=== PATIENT | male | born 1975 | race Caucasian/White ===

== ENCOUNTER → 2017-02-12 | Outpatient (CLI) | payer BC ==
--- NOTE | 2017-02-12 08:56 | CT ---
EXAMINATION TYPE: CT abdomen wo/w con DATE OF EXAM: 02/12/2017 COMPARISON: None available at this institution HISTORY: RUQ pain, Abn US in office, liver hemangioma and spleen hemangioma CT DLP: 3283 mGycm Automated exposure control for dose reduction was used. TECHNIQUE: Helical acquisition of images was performed from the lung bases through the top of iliac crest to include entire abdomen. CONTRAST: Performed with Oral Contrast and without and with IV Contrast, patient injected with 100 mL of Omnipa que 300. FINDINGS: LUNG BASES: No significant abnormality is appreciated. LIVER/GB: The liver is diffusely hypoattenuated approaching criteria for hepatic steatosis. This find ing does limit evaluation for hepatic masses. No intrahepatic biliary ductal dilatation is seen. The liver contour is smooth. No focal hepatic masses are appreciated. No abnormal enhancement is seen of the hepatic parenchyma. No radiopaque calculi on the unenhanced images. PANCREAS: No significant abnormality is seen. No ductal dilatation. SPLEEN: The spleen is unremarkable in size and morphology measuring approximately 10.3 cm in cranioca udal dimension and 13.0 cm in longitudinal dimension. No splenic masses are appreciated. No abnormal splenic enhancement is seen. No splenic varices are present. ADRENALS: Adrenal glands maintain are normal adreniform shape without measurable nodule. KIDNEYS: No radiopaque calculi on the unenhanced images. The kidneys enhance and excrete symmetricall y with no focal mass on the left or hydronephrosis. Cortical renal cyst is seen within the superior p ole posteriorly on the right measuring approximately 1.2 cm. BOWEL: Bowel is unenlarged. Appendix is visualized without periappendiceal fat stranding. LYMPH NODES: No enlarged lymph nodes greater than 1 cm present. OSSEOUS STRUCTURES: Vertebral body hemangioma seen of the lower thoracic vertebrae. No evidence of a cute fracture or dislocation. No suspicious osseous lesion. FREE AIR: No free air is visualized. OTHER: A small fat filled 7 mm umbilical hernia is present. IMPRESSION: NO EVIDENCE OF FOCAL HEPATIC OR SPLENIC LESION. THE LIVER APPROACHES CRITERIA FOR HEPATIC STEATOSIS A ND MAY HAVE CREATED A COARSENED HEPATIC ECHOTEXTURE ON THE PREVIOUS OUTSIDE ULTRASOUND MIMICKING A FO ZOEY LESION.
== END ==
LOC: RADCTMAIN 07:42
PROVIDERS: ATTEND Family Medicine
DX: D18.00 Hemangioma unspecified site (principal); D18.03 Hemangioma of intra-abdominal structures
CPT/HCPCS: 74170; Q9967

== ENCOUNTER 2017-03-20 07:56 | Day surgery (SDC) | payer BC ==
[2017-03-15 16:12] VITALS: BMI 44.9
[~2017-03-20 07:56] MED LIST: LACTATED RINGERS 1,000 ML IV SCH
[2017-03-20] MEDS ORDERED: LIDOCAINE 1% 20 ML VIAL (10MG/ML) FOR IV START INTRADERMA ONE (08:21)
[2017-03-20 08:23] VITALS: RESP 16; TEMP 9
[2017-03-20] MEDS ORDERED: LIDOCAINE 1% INJ 10MG/ML (20 ML MDV) ONE (09:05)
[2017-03-20] MEDS ORDERED: PROPOFOL 10 MG/ML 20 ML VIAL IV ONE (09:05)
--- NOTE | 2017-03-20 09:10 | P.GSHP ---
History of Present Illness H&P Date: 03/20/17 Chief Complaint: Epigastric pain, GERD This a 41-year-old male referred from Dr. Israel Joel. Patient presents today for EGD. He's had issues with some epigastric and left upper quadrant pain as well as some mild GERD. Past Medical History Past Medical History: No Reported History Additional Past Medical History / Comment(s): States having this procedure for abdominal pain. History of Any Multi-Drug Resistant Organisms: None Reported Additional Past Surgical History / Comment(s): Ear tubes as a child, pain injections. Past Anesthesia/Blood Transfusion Reactions: No Reported Reaction Additional Past Anesthesia/Blood Transfusion Reaction / Comment(s): Has never had general anesthesia. Smoking Status: Never smoker - Past Family History Mother Family Medical History: No Reported History Medications and Allergies Home Medications Medication Instructions Recorded Confirmed Type No Known Home Medications [No 03/15/17 03/20/17 History Known Home Medications] Allergies Allergy/AdvReac Type Severity Reaction Status Date / Time No Known Allergies Allergy Verified 03/20/17 08:11 Surgical - Exam Vital Signs Temp Pulse Resp BP Pulse Ox 9 F L 66 16 125/73 97 03/20/17 08:22 03/20/17 08:22 03/20/17 08:22 03/20/17 08:22 03/20/17 08:22 - General well developed, no distress - Eyes PERRL - ENT normal pinna - Neck no masses - Respiratory normal expansion - Cardiovascular Rhythm: regular - Abdomen Abdomen: soft, non tender Assessment and Plan Assessment: Epigastric pain, GERD. We'll perform EGD.
--- NOTE | 2017-03-20 09:18 | P.OP ---
Date of Procedure: 03/20/17 Preoperative Diagnosis: Epigastric pain Postoperative Diagnosis: Mild antral gastritis Small hiatal hernia Mild esophagitis Procedure(s) Performed: EGD Anesthesia: MAC Surgeon: Rajesh Mayers Pathology: other (Antrum, esophagus) Condition: stable Disposition: PACU Description of Procedure: The patient's placed on the endoscopy table in the lateral position. He received IV sedation. The gastroscope placed oropharynx passed in the esophagus and stomach. Scope was then placed through the pylorus. The first and second portion of the duodenum appeared normal. Scope was then brought back the antrum and this appeared mildly inflamed. A biopsies was performed. Scope was unretroflexed and remainder stomach appeared normal. There was a small hiatal hernia. The GE junction was at 38 7 is. The distal esophagus appeared mildly inflamed a biopsies performed. The proximal esophagus appeared normal. Scope was withdrawn for patient.
[2017-03-20 09:33] VITALS: BP 123/84; PULSE 72
== END 2017-03-20 10:04 | disposition home or self-care (01) ==
LOC: ORWHC2ENDO 07:56
PROVIDERS: ATTEND Surgery
DX: K21.0 Gastro-esophageal reflux disease with esophagitis (principal); K29.50 Unspecified chronic gastritis without bleeding; K44.9 Diaphragmatic hernia without obstruction or gangrene; E66.9 Obesity, unspecified; Z68.41 Body mass index [BMI] 40.0-44.9, adult
CPT/HCPCS: 43239; 88305; 88342; J2001; J2704

== ENCOUNTER → 2017-05-07 | Outpatient (CLI) | payer BC ==
--- NOTE | 2017-05-07 17:08 | P.HPBAR ---
Bariatric H&P - History & Physicial H&P Date: 05/07/17 History & Physicial: Visit/CC: Patient initial contact: Initial weight: Initial weight in pounds: Height: Initial BMI: Last weight: Current weight: 366 Current weight in pounds: Current BMI: [place] body weight (based on NIH guidelines): Excess body weight loss: The patient is a 41 year-old M who presents for Bariatric Assessment. The patient presents today for new patient sleeve gastric mucosal patient. Patient' s had lifetime problems obesity. He is also severe comorbidities related to morbid obesity. Patient is attended a recent. Summer. He has a good understanding of the sleeve gastrectomy. Past Medical History Past Medical History: No Reported History Additional Past Medical History / Comment(s): chronic esophagitis dx 03/20/17 by EGD (Dr. Reddy), states he has herniated discs between L1 and S1 (one of which is near deterioration) History of Any Multi-Drug Resistant Organisms: None Reported Additional Past Surgical History / Comment(s): Ear tubes as a child, pain injections lower back . Past Anesthesia/Blood Transfusion Reactions: No Reported Reaction Additional Past Anesthesia/Blood Transfusion Reaction / Comm: Has never had general anesthesia, no problems noted with [place] anesthesia for EGD on Past Psychological History: No Psychological Hx Reported Smoking Status: Never smoker Past Alcohol Use History: Occasional Past Drug Use History: Marijuana Additional Drug Use History / Comment(s): occasional marijuana for back pain - Past Family History Mother Family Medical History: Diabetes Mellitus Additional Family Medical History / Comment(s): DDD, Anusha en Y sx, open heart sx , heart valve replacement, DM, Multiple back sx, lung disorder originated from [place] and led to mold spores in lungs, smoker Father Family Medical History: No Reported History Additional Family Medical History / Comment(s): patient states father does not go to the doctor, has bad knees but that's about it. Surgical - Exam - General well developed, no distress - Eyes PERRL - ENT normal pinna - Neck no masses - Respiratory normal expansion - Cardiovascular Rhythm: regular - Abdomen Abdomen: soft, non tender Bariatric Assessment & Plan Plan: Morbid obesity with severe comorbidities.. Patient will be authorized for sleeve gastrectomy prior to scheduling. He'll follow-up in 2 months. Bariatric Checklist Checklist: Plan: Checklist: EGD: 1. Hiatal hernia: 2. H. Pylori: HgbA1c: Vitamin D: Smoking: Never smoker Primary care physician referral: Psychiatry clearance: Cardiology clearance: Sleep study: Diet journal: VTE risk score: VTE risk level: Rehab needs at discharge:
[2017-05-07 19:50] VITALS: BP 141/80; PULSE 75; RESP 15; TEMP 98; BMI 47.7
== END | disposition home or self-care (01) ==
LOC: BARWHC3 14:39
PROVIDERS: ATTEND Surgery
DX: E66.01 Morbid (severe) obesity due to excess calories (principal); E44.0 Moderate protein-calorie malnutrition; E55.9 Vitamin D deficiency, unspecified
CPT/HCPCS: 99211

== ENCOUNTER → 2017-07-21 | Outpatient (CLI) | payer BC ==
[2017-07-21 08:45] LABS: ALT 33 U/L (21-72); AST 32 U/L (17-59); Albumin 4.2 g/dL (3.5-5.0); Alkaline Phosphatase 85 U/L (38-126); Anion Gap 12 mmol/L; Blood Urea Nitrogen 14 mg/dL (9-20); Calcium 9.3 mg/dL (8.4-10.2); Carbon Dioxide 26 mmol/L (22-30); Chloride 105 mmol/L (98-107); Glucose 93 mg/dL (74-99); Potassium 4.4 mmol/L (3.5-5.1); Sodium 143 mmol/L (137-145); Total Bilirubin 0.5 mg/dL (0.2-1.3); Total Protein 7.3 g/dL (6.3-8.2)
[2017-07-21 08:49] LABS: HCT 44.7 % (39.0-53.0); HGB 14.4 gm/dL (13.0-17.5); MCH 28.6 pg (25.0-35.0); MCHC 32.3 g/dL (31.0-37.0); MCV 88.8 fL (80.0-100.0); Mean Platelet Volume 6.6; Platelet Count 270 k/uL (150-450); RBC 5.04 m/uL (4.30-5.90); RDW 12.8 % (11.5-15.5); WBC 9.7 k/uL (3.8-10.6)
[2017-07-21 19:09] LABS: Hemoglobin A1C 5.4 % (4.0-6.0)
== END | disposition home or self-care (01) ==
LOC: LABWHC1 08:08
PROVIDERS: ATTEND Surgery
DX: E66.01 Morbid (severe) obesity due to excess calories (principal); E55.9 Vitamin D deficiency, unspecified; E44.0 Moderate protein-calorie malnutrition
CPT/HCPCS: 36415; 80053; 82306; 83036; 84425; 84443; 85027; 93005

== ENCOUNTER → 2017-09-10 | Outpatient (CLI) | payer BC ==
[2017-09-10 13:34] VITALS: BP 125/73; PULSE 65; TEMP 98.7; BMI 46.9
--- NOTE | 2017-09-10 15:38 | P.HPBAR ---
Bariatric H&P - History & Physicial H&P Date: 09/10/17 History & Physicial: Visit/CC: presurgical visit Patient initial contact: Initial weight: 166.151 kg Initial weight in pounds: 366.30 Height: 6 ft 1.5 in Initial BMI: 47.7 Last weight: Current weight: 163.52 kg Current weight in pounds: 360.50 Current BMI: 46.9 [place] body weight (based on NIH guidelines): 84.822 kg Excess body weight loss: 3.2% The patient is a 41 year-old M who presents for Bariatric Assessment. Patient presents today for preoperative sleeve gastrectomy consultation. He is morbidly obese with BMI 47. Past Medical History Past Medical History: No Reported History Additional Past Medical History / Comment(s): chronic esophagitis dx 03/20/17 by EGD (Dr. Reddy), states he has herniated discs between L1 and S1 (one of which is near deterioration) History of Any Multi-Drug Resistant Organisms: None Reported Past Surgical History: Ear Surgery Additional Past Surgical History / Comment(s): Ear tubes as a child, pain injections lower back . Past Anesthesia/Blood Transfusion Reactions: No Reported Reaction Additional Past Anesthesia/Blood Transfusion Reaction / Comm: Has never had general anesthesia, no problems noted with [place] anesthesia for EGD on Smoking Status: Never smoker - Past Family History Mother Family Medical History: Diabetes Mellitus Additional Family Medical History / Comment(s): DDD, Anusha en Y sx, open heart sx , heart valve replacement, DM, Multiple back sx, lung disorder originated from [place] and led to mold spores in lungs, smoker Father Family Medical History: No Reported History Additional Family Medical History / Comment(s): patient states father does not go to the doctor, has bad knees but that's about it. Surgical - Exam Vital Signs Temp Pulse BP 98.7 F 65 125/73 09/10/17 13:31 09/10/17 13:31 09/10/17 13:31 - General well developed, no distress - Eyes PERRL - ENT normal pinna - Neck no masses - Respiratory normal expansion - Cardiovascular Rhythm: regular Bariatric Assessment & Plan Plan: RBC with BMI 47. Patient has a good understanding sleeve gastrectomy. He will be scheduled for surgery once his insurance authorization complete. We went over the risks and benefits of the procedure including possible injury to the stomach, liver spleen we also discussed the risk of gastric leak, staple line obstruction or scarring. Bariatric Checklist Checklist: Plan: Checklist: EGD: 1. Hiatal hernia: 2. H. Pylori: HgbA1c: Vitamin D: Smoking: Never smoker Primary care physician referral: Dr. Israel Mayen Psychiatry clearance: Cardiology clearance: Sleep study: Diet journal: VTE risk score: VTE risk level: Rehab needs at discharge:
== END | disposition home or self-care (01) ==
LOC: BARWHC3 12:56
PROVIDERS: ATTEND Surgery
DX: Z01.818 Encounter for other preprocedural examination (principal); E66.01 Morbid (severe) obesity due to excess calories; K20.9 Esophagitis, unspecified; Z98.890 Other specified postprocedural states; Z68.42 Body mass index [BMI] 45.0-49.9, adult
CPT/HCPCS: 99211

== ENCOUNTER → 2017-10-01 | Outpatient (CLI) | payer BC ==
[2017-10-02 14:59] VITALS: BMI 47.1
== END | disposition home or self-care (01) ==
LOC: BARWHC3 08:44
PROVIDERS: ATTEND Surgery
DX: E66.01 Morbid (severe) obesity due to excess calories (principal); Z68.42 Body mass index [BMI] 45.0-49.9, adult; Z71.3 Dietary counseling and surveillance
CPT/HCPCS: 97804

== ENCOUNTER → 2017-11-09 | Outpatient (CLI) | payer BC ==
[2017-11-09 17:43] LABS: Basophils # (A) 0.1 k/uL (0-0.2); Basophils % (A) 1 %; Eosinophils # (A) 0.1 k/uL (0-0.7); Eosinophils % (A) 1 %; HCT 42.1 % (39.0-53.0); HGB 15.4 gm/dL (13.0-17.5); Lymphocytes # (A) 2.8 k/uL (1.0-4.8); Lymphocytes % (A) 27 %; MCH 32.3 pg (25.0-35.0); MCHC 36.5 g/dL (31.0-37.0); MCV 88.7 fL (80.0-100.0); Mean Platelet Volume 6.5; Monocytes # (A) 0.7 k/uL (0-1.0); Monocytes % (A) 7 %; Neutrophils # (A) 6.3 k/uL (1.3-7.7); Neutrophils % (A) 62 %; Platelet Count 237 k/uL (150-450); RBC 4.75 m/uL (4.30-5.90); RDW 12.6 % (11.5-15.5); WBC 10.2 k/uL (3.8-10.6)
[2017-11-09 17:47] LABS: ALT 42 U/L (21-72); AST 30 U/L (17-59); Albumin 4.6 g/dL (3.5-5.0); Alkaline Phosphatase 58 U/L (38-126); Anion Gap 13 mmol/L; Blood Urea Nitrogen 20 mg/dL (9-20); Calcium 9.5 mg/dL (8.4-10.2); Carbon Dioxide 25 mmol/L (22-30); Chloride 102 mmol/L (98-107); Glucose 75 mg/dL (74-99); Potassium 4.6 mmol/L (3.5-5.1); Sodium 140 mmol/L (137-145); Total Bilirubin 0.5 mg/dL (0.2-1.3); Total Protein 7.6 g/dL (6.3-8.2)
== END | disposition home or self-care (01) ==
LOC: LABPAT 15:56
PROVIDERS: ATTEND Surgery
DX: Z01.812 Encounter for preprocedural laboratory examination (principal)
CPT/HCPCS: 36415; 80053; 85025

== ENCOUNTER 2017-11-21 11:36 | Inpatient (IN) | payer BC ==
[~2017-11-21 11:36] MED LIST changes: +DEXAMETHASONE SOD PHOSPHATE 10 MG/ML 1 ML VIAL IV ONE; -LACTATED RINGERS 1,000 ML IV SCH; +ONDANSETRON 4 MG/2 ML VIAL IVP ONE; +SCOPOLAMINE 1.5MG/72HR PATCH TRANSDERM ONE; +fentaNYL (PF) 50 MCG/ML 2 ML AMP IV PRN
[2017-11-21] MEDS ORDERED: ENOXAPARIN 40 MG/0.4 ML SYRINGE SQ STA (12:24)
[2017-11-21] MEDS: LACTATED RINGERS 1,000 ML IV SCH ×2 (12:26→19:32)
--- NOTE | 2017-11-21 12:41 | P.GSHP ---
History of Present Illness H&P Date: 11/21/17 Chief Complaint: Morbid obesity, BMI 43 This a 42-year-old male who's had lifetime problems obesity. Patient presents today for laparoscopic sleeve gastrectomy. His BMI is 43. Patient went risks of surgery including conversion to the open procedure and injury to the stomach liver or spleen. He is also a risk of gastric staple line disruption, bleeding or scarring.. Past Medical History Past Medical History: No Reported History, GERD/Reflux, Musculoskeletal Disorder Additional Past Medical History / Comment(s): chronic esophagitis dx 03/20/17 by EGD (Dr. Reddy), states he has herniated discs between L1 and S1 (one of which is near deterioration) History of Any Multi-Drug Resistant Organisms: None Reported Past Surgical History: Ear Surgery Additional Past Surgical History / Comment(s): Ear tubes; pain injections lower back ; EGD Past Anesthesia/Blood Transfusion Reactions: No Reported Reaction Additional Past Anesthesia/Blood Transfusion Reaction / Comment(s): Has never had general anesthesia, no problems noted with [place] anesthesia for EGD on Smoking Status: Never smoker - Past Family History Mother Family Medical History: Diabetes Mellitus Additional Family Medical History / Comment(s): DDD, Anusha en Y sx, open heart sx , heart valve replacement, DM, Multiple back sx, lung disorder originated from [place] and led to mold spores in lungs, smoker Father Family Medical History: No Reported History Additional Family Medical History / Comment(s): patient states father does not go to the doctor, has bad knees but that's about it. Medications and Allergies Home Medications Medication Instructions Recorded Confirmed Type L.acidoph,Paracasei, B.lactis 2 each PO DAILY 05/07/17 11/13/17 History [Probiotic] Cholecalciferol [Vitamin D3] 5,000 unit PO DAILY 09/10/17 11/13/17 History Allergies Allergy/AdvReac Type Severity Reaction Status Date / Time No Known Allergies Allergy Verified 11/21/17 12:11 Surgical - Exam Vital Signs Temp Pulse Resp BP Pulse Ox 97.4 F L 75 16 134/78 97 11/21/17 12:11 11/21/17 12:11 11/21/17 12:11 11/21/17 12:11 11/21/17 12:11 - General well developed, no distress - Eyes PERRL - ENT normal pinna - Neck no masses - Respiratory normal expansion - Cardiovascular Rhythm: regular - Abdomen Abdomen: soft, non tender Assessment and Plan Assessment: RBC, BMI 43. Patient will undergo laparoscopic sleeve gastrectomy.
[2017-11-21] MEDS ORDERED: NEOSTIGMINE 1 MG/ML 10 ML VIAL ONE (13:40)
[2017-11-21] MEDS ORDERED: KETOROLAC 30 MG/ML 1 ML VIAL ONE (13:40)
[2017-11-21] MEDS ORDERED: ROCURONIUM BROMIDE 10 MG/ML 10 ML VIAL IV ONE (13:40)
[2017-11-21] MEDS ORDERED: KETAMINE 10 MG/ML 20 ML VIAL ONE (13:40)
[2017-11-21] MEDS ORDERED: MIDAZOLAM 2 MG/2 ML VIAL ONE (13:40)
[2017-11-21] MEDS ORDERED: GLYCOPYRROLATE 0.2 MG/ML 2 ML VIAL ONE (13:40)
[2017-11-21] MEDS ORDERED: PROPOFOL 10 MG/ML 20 ML VIAL IV ONE (13:40)
[2017-11-21] MEDS ORDERED: fentaNYL (PF) 50 MCG/ML 2 ML AMP ONE (13:40)
[2017-11-21] MEDS ORDERED: SUCCINYLCHOLINE CHLORIDE 100 MG/5 ML SYR IV ONE (13:40)
[2017-11-21] MEDS ORDERED: ACETAMINOPHEN IV (For NPO) 1,000 MG/100 ML VIAL ONE (13:40)
[2017-11-21] MEDS ORDERED: ONDANSETRON 4 MG/2 ML VIAL ONE (13:40)
[2017-11-21] MEDS ORDERED: LIDOCAINE 1% INJ 10MG/ML (20 ML MDV) ONE (13:40)
[2017-11-21] MEDS ORDERED: BUPIVACAIN-EPI 0.5%-1:200,000 30 ML VIAL SQ ONE ×2 (14:05→14:39)
[2017-11-21] MEDS ORDERED: LACTATED RINGERS 1,000 ML IV ONE (14:39)
[2017-11-21] MEDS: HYDROmorphone 0.5 MG/0.5 ML SYRINGE IVP PRN ×4 (15:04→15:30)
[2017-11-21] MEDS ORDERED: diphenhydrAMINE 50 MG/ML 1 ML VIAL IVP ONE (15:14)
[2017-11-21] MEDS ORDERED: diphenhydrAMINE 50 MG/ML 1 ML VIAL IVP PRN (15:17)
[2017-11-21] MEDS ORDERED: NALOXONE 0.4 MG/ML 1 ML VIAL IV PRN (15:17)
[2017-11-21] MEDS ORDERED: ONDANSETRON 4 MG/2 ML VIAL IVP PRN (15:17)
[2017-11-21] MEDS ORDERED: HYDROcodone/APAP 15 ML SOLUTION PO PRN (15:17)
--- NOTE | 2017-11-21 15:17 | P.OP ---
Date of Procedure: 11/21/17 Preoperative Diagnosis: "Obesity, BMI 43 Postoperative Diagnosis: Morbid obesity, BMI 43 Procedure(s) Performed: Laparoscopic sleeve gastrectomy Anesthesia: KAYLEN Surgeon: Rajesh Mayers Estimated Blood Loss (ml): 5 Pathology: other (Stomach) Condition: stable Disposition: PACU Description of Procedure: The patient was placed on the operating room table in the supine position. She received general anesthesia and then was placed in dorsal lithotomy position. Her abdomen was prepped and draped in sterile fashion. The skin incision sites were anesthetized 1% local Xylocaine. And then the skin was incised with an 11 blade in the left lateral position. Using a blade less trocar under direct visualization the peritoneal cavity was entered. The abdomen was insufflated and then a 5 mm laparoscope was placed into the peritoneal cavity. A 5 mm trocar was placed in the right epigastric, and right lateral position. A 15 mm trocar was placed in the supra-umbilical position and another 5 mm trocar was placed in the left lateral position. The left lateral lobe of the liver was retracted. The stomach was visualized. The greater curvature of the stomach was then dissected using the Harmonic scissors. The dissection occurred approximately 5 cm from the pylorus to the level of the left feliz. There was no hiatal hernia seen. At this point a 40-Malt[place] bougie dilator was placed the oropharynx and passed into the esophagus and into the stomach by the [employer] MANAGER. The sleeve gastrectomy was performed by using the powered echelon stapler with a seam guard buttress material. Sequential firings of the stapler were performed. The gastric remnant was then brought out through the 15 mm trocar site. The dilator was withdrawn. And a orogastric tube was replaced into the stomach. The stomach was insufflated with 200 mL of methylene blue normal saline. There was no evidence of extravasation. The abdomen was irrigated there is no bleeding seen. The [place] device was used to close the 15 mm trocar with 0 Vicryl. Skin was closed with interrupted 3-0 Monocryl sutures once the trochars withdrawn. Dermabond dressing was applied. Patient was sent to recovery in stable condition.
[2017-11-21 16:07] VITALS: RESP 16; BMI 43.2
[2017-11-21] MEDS: ALBUTEROL NEBULIZED 2.5 MG/3 ML INHALATION SCH ×2 (18:39→19:08)
[2017-11-21] MEDS: AMPICILLIN-SULBACTAM 3 GM in SODIUM CHLORIDE 0.9% 100 ML IVPB SCH (19:17)
[2017-11-21] MEDS: HYOSCYAMINE ORAL DROPS 1.875 MG/15 ML BOTTLE PO PRN (19:18)
[2017-11-21] MEDS: SIMETHICONE 40 MG/0.6 ML DROPS 2,000 MG/30 ML BOTTLE PO PRN (19:18)
[2017-11-21] MEDS: 0.9% NACL WITH KCL 20 MEQ/L 1,000 ML IV SCH (19:28)
[2017-11-21] MEDS: HYDROmorphone 1 MG/ML 1 ML SYRINGE IVP PRN (19:41)
[2017-11-22] MEDS: 0.9% NACL WITH KCL 20 MEQ/L 1,000 ML IV SCH ×2 (05:07→05:08)
[2017-11-22] MEDS: AMPICILLIN-SULBACTAM 3 GM in SODIUM CHLORIDE 0.9% 100 ML IVPB SCH (05:08)
[2017-11-22 07:19] LABS: Basophils % (A) 0 %; Eosinophils % (A) 0 %; HCT 40.7 % (39.0-53.0); HGB 13.2 gm/dL (13.0-17.5); Lymphocytes % (A) 12 %; MCH 29.5 pg (25.0-35.0); MCHC 32.5 g/dL (31.0-37.0); MCV 90.7 fL (80.0-100.0); Mean Platelet Volume 6.5; Monocytes % (A) 6 %; Neutrophils # (A) 13.2 k/uL (1.3-7.7); Neutrophils % (A) 80 %; Platelet Count 215 k/uL (150-450); RBC 4.48 m/uL (4.30-5.90); RDW 12.6 % (11.5-15.5); WBC 16.4 k/uL (3.8-10.6)
[2017-11-22 07:50] LABS: Anion Gap 12 mmol/L; Blood Urea Nitrogen 5 mg/dL (9-20); Calcium 8.5 mg/dL (8.4-10.2); Carbon Dioxide 20 mmol/L (22-30); Chloride 104 mmol/L (98-107); Magnesium 1.8 mg/dL (1.6-2.3); Potassium 4.7 mmol/L (3.5-5.1); Sodium 136 mmol/L (137-145)
[2017-11-22] MEDS: ALBUTEROL NEBULIZED 2.5 MG/3 ML INHALATION SCH ×3 (07:53→16:41)
[2017-11-22] MEDS ORDERED: 1: MVI, ADULT NO.4 WITH VIT K 10 ML, THIAMINE 100 MG, FOLIC ACID 1 MG, POTASSIUM CHLORID IV SCH ×6 (08:00)
[2017-11-22] MEDS: HYDROmorphone 1 MG/ML 1 ML SYRINGE IVP PRN (08:02)
[2017-11-22 08:15] VITALS: BP 137/83; PULSE 99; TEMP 97.7
[2017-11-22] MEDS ORDERED: ENOXAPARIN 40 MG/0.4 ML SYRINGE SQ SCH (09:00)
[2017-11-22] MEDS ORDERED: PANTOPRAZOLE 40 MG/10 ML VIAL IV SCH (09:00)
--- NOTE | 2017-11-22 09:29 | FL ---
EXAMINATION TYPE: FL UGI DATE OF EXAM: 11/22/2017 COMPARISON: NONE HISTORY: Status post gastric sleeve surgery. Evaluate for postoperative obstruction or leak. TECHNIQUE: A limited single contrast UGI study is performed. Fl time 1 min, 15 sec. Isovue 370 used, 50 ml. 12. Images saved FINDINGS: The patient swallowed contrast without difficulty or delay. Esophageal peristalsis and mo tility are within normal limits. There is slightly delayed flow of contrast along the diaphragmatic hiatus into proximal stomach and subsequent flow into gastric sleeve. There is good flow from distal sleeve into pylorus and duodenal sweep. Patient remains asymptomatic. There is no evidence of contras t extravasation to suggest leak. IMPRESSION: Delayed passage of contrast at the gastroesophageal junction and gastric sleeve relating to postoperative edema most commonly. No significant obstruction or evidence of leak status post rec ent gastric sleeve surgery.
[2017-11-22] MEDS: HYOSCYAMINE ORAL DROPS 1.875 MG/15 ML BOTTLE PO PRN (12:46)
[2017-11-22] MEDS: SIMETHICONE 40 MG/0.6 ML DROPS 2,000 MG/30 ML BOTTLE PO PRN (12:47)
--- NOTE | 2017-11-22 13:40 | P.CONS ---
History of Present Illness - Reason for Consult Consult date: 11/22/17 Medical management Requesting physician: Rajesh Reddy - Chief Complaint s/p gastric sleeve - History of Present Illness 42-year-old male who underwent elective laparoscopic sleeve gastrectomy with Dr. Reddy on 11/21/2017. Dr. Mayen was consulted for medical management. The patient has a history of gastroesophageal reflux disease, esophagitis diagnosed per EGD in February 2017, and herniated disks. The patient reports occasional marijuana use for his back pain. The patient was seen and examined at the bedside on rounds with Dr. Mayen. The patient is sitting up in bed awake and alert. Patient states his pain is controlled at this time. Denies chest pain or pressure. Denies shortness of breath. Denies cough or congestion. He remains hemodynamically stable. Review of Systems Those systems with pertinent positive or pertinent negative responses have been documented in the HPI Past Medical History Past Medical History: No Reported History, GERD/Reflux, Musculoskeletal Disorder Additional Past Medical History / Comment(s): chronic esophagitis dx 03/20/17 by EGD (Dr. Reddy), states he has herniated discs between L1 and S1 (one of which is near deterioration) History of Any Multi-Drug Resistant Organisms: None Reported Past Surgical History: Ear Surgery Additional Past Surgical History / Comment(s): Ear tubes; pain injections lower back ; EGD Past Anesthesia/Blood Transfusion Reactions: No Reported Reaction Additional Past Anesthesia/Blood Transfusion Reaction / Comm: Has never had general anesthesia, no problems noted with [place] anesthesia for EGD on Smoking Status: Never smoker - Past Family History Mother Family Medical History: Diabetes Mellitus Additional Family Medical History / Comment(s): DDD, Anusha en Y sx, open heart sx , heart valve replacement, DM, Multiple back sx, lung disorder originated from [place] and led to mold spores in lungs, smoker Father Family Medical History: No Reported History Additional Family Medical History / Comment(s): patient states father does not go to the doctor, has bad knees but that's about it. Medications and Allergies Home Medications Medication Instructions Recorded Confirmed Type L.acidoph,Paracasei, B.lactis 2 cap PO DAILY 05/07/17 11/21/17 History [Probiotic] Cholecalciferol [Vitamin D3] 5,000 unit PO DAILY 09/10/17 11/21/17 History Allergies Allergy/AdvReac Type Severity Reaction Status Date / Time No Known Allergies Allergy Verified 11/21/17 16:10 Physical Exam Vitals: Vital Signs Temp Pulse Pulse Pulse Resp BP Pulse Ox 11/22/17 08:14 97.7 F 99 16 137/83 95 11/22/17 08:09 90 16 97 11/22/17 08:02 81 11/22/17 07:56 87 11/21/17 19:23 68 11/21/17 19:08 62 96 11/21/17 18:56 97.6 F 71 16 126/85 11/21/17 18:34 74 16 126/70 93 L 11/21/17 18:00 70 16 173/95 95 11/21/17 17:45 63 16 167/73 93 L 11/21/17 17:30 79 16 160/88 96 11/21/17 17:15 64 16 157/91 96 11/21/17 17:00 77 16 143/75 92 L 11/21/17 16:45 79 16 144/70 91 L 11/21/17 16:30 71 16 145/70 90 L 11/21/17 16:15 72 16 141/69 90 L 11/21/17 16:03 98 F 60 16 137/84 94 L 11/21/17 16:00 98 F 63 16 137/84 100 11/21/17 15:45 58 L 14 162/93 100 11/21/17 15:31 65 14 164/90 100 11/21/17 15:16 62 14 158/92 100 11/21/17 15:00 67 14 160/89 100 11/21/17 14:56 97.4 F L 75 14 145/85 100 Intake and Output 11/21/17 11/22/17 11/22/17 22:59 06:59 14:59 Intake Total 800 1200 Balance 800 1200 Intake: IV 200 Intake, IV Titration 600 1200 Amount 0.9% NaCl with KCl 20 Meq 600 1200 /l 1,000 ml @ 150 mls/hr IV .[id number] [facility] Rx#: [id number] Other: Voiding Method Toilet # Voids 1 3 Weight 152.861 kg 152.861 kg GENERAL: This is a 42-year-old male in no apparent distress at the time of examination. Pleasant and cooperative. HEENT: Head is atraumatic, normocephalic. Pupils are equal, round, and reactive to light. Sclerae anicteric. Conjunctivae are clear. Mucus membranes of the mouth are moist. Neck is supple. RESPIRATORY: Clear to ausculation. No wheezes, rales, or rhonchi. No use of accessory muscles. Patient maintaining oxygen saturation greater than 92%. No chest wall tenderness is noted on palpation or with deep breathing. CARDIOVASCULAR: Regular rate and rhythm. S1 and S2 noted. No systolic or diastolic murmur auscultated. No JVD noted. No S3 or S4 noted. GASTROINTESTINAL: Laparoscopic dressings clean dry and intact. No drainage noted. No distention noted. Abdomen soft and round. Normal active bowel sounds auscultated x 4 quadrants. INTEGUMENTARY: No cyanosis. No jaundice. No rashes noted. No cellulitis noted. EXTREMITIES: 2+ peripheral pulses. No evidence of peripheral edema. No calf tenderness noted. NEUROLOGIC: Cranial nerves II-XII intact. PSYCHIATRIC: Awake, alert, and oriented X 3. Appropriate affect. Intact judgement and insight. Results CBC & Chem 7: 11/22/17 06:44 11/22/17 06:44 Labs: Abnormal Lab Results - Last 24 Hours (Table) 11/22/17 11/22/17 Range/Units 06:44 06:44 WBC 16.4 H (3.8-10.6) k/uL Neutrophils # 13.2 H (1.3-7.7) k/uL Sodium 136 L (137-145) mmol/L Carbon Dioxide 20 L (22-30) mmol/L BUN 5 L (9-20) mg/dL Assessment and Plan Plan: ASSESSMENT: Morbid obesity, s/p laparoscopic sleeve gastrectomy POD #1 History of gastroesophageal reflux disease History of chronic back pain due to herniated disc PLAN: Continue postoperative care per Dr. Reddy. Pain control. Bariatric diet. Increase activity as tolerated. Incentive spirometer 10 times an hour while awake. Further recommendations pending patient's course. Patient is cleared for discharge from a medical standpoint when cleared by admitting/attending physician. Thank you for this consultation. We will continue to follow along with Osmar during his hospitalization. Nurse practitioner note has been reviewed by physician. Signing provider agrees with the documented findings, assessment, and plan of care.
[2017-11-23] MEDS ORDERED: BISACODYL 5 MG TABLET.DR PO PRN (08:00)
== END 2017-11-22 16:58 | disposition home or self-care (01) | DRG 621 ==
LOC: 2ORMAIN 11:36 → 3SUR 14:57
PROVIDERS: ADMIT Surgery; ATTEND Surgery
PROC: 0DB64Z3 Excision of Stomach, Percutaneous Endoscopic Approach, Vertical (ICD-10-PCS; principal; 2017-11-21 13:35)
DX: E66.01 Morbid (severe) obesity due to excess calories (principal); G89.29 Other chronic pain; K21.0 Gastro-esophageal reflux disease with esophagitis; M54.9 Dorsalgia, unspecified; M51.37 Other intervertebral disc degeneration, lumbosacral region; Z68.41 Body mass index [BMI] 40.0-44.9, adult; Z83.3 Family history of diabetes mellitus
CPT/HCPCS: 74240; 80051; 82310; 82565; 83735; 84100; 84520; 85025; 88307; 94640

== ENCOUNTER → 2017-12-03 | Outpatient (CLI) | payer BC ==
--- NOTE | 2017-12-03 15:17 | P.HPBAR ---
Bariatric H&P - History & Physicial H&P Date: 12/03/17 History & Physicial: Visit/CC: Patient initial contact: Initial weight: 166.151 kg Initial weight in pounds: Height: Initial BMI: Last weight: Current weight: Current weight in pounds: Current BMI: [place] body weight (based on NIH guidelines): Excess body weight loss: The patient is a 42 year-old M who presents for Bariatric Assessment. She presents today for sleeve gastrectomy follow-up. He has had some minimal GERD. He denies any dysphagia or abdominal pain. Past Medical History Past Medical History: No Reported History Additional Past Medical History / Comment(s): chronic esophagitis dx 03/20/17 by EGD (Dr. Reddy), states he has herniated discs between L1 and S1 (one of which is near deterioration) History of Any Multi-Drug Resistant Organisms: None Reported Past Surgical History: Ear Surgery Additional Past Surgical History / Comment(s): Ear tubes as a child, pain injections lower back . Past Anesthesia/Blood Transfusion Reactions: No Reported Reaction Additional Past Anesthesia/Blood Transfusion Reaction / Comm: Has never had general anesthesia, no problems noted with [place] anesthesia for EGD on Smoking Status: Never smoker - Past Family History Mother Family Medical History: Diabetes Mellitus Additional Family Medical History / Comment(s): DDD, Anusha en Y sx, open heart sx , heart valve replacement, DM, Multiple back sx, lung disorder originated from [place] and led to mold spores in lungs, smoker Father Family Medical History: No Reported History Additional Family Medical History / Comment(s): patient states father does not go to the doctor, has bad knees but that's about it. Surgical - Exam - General well developed, no distress - Eyes PERRL - ENT normal pinna - Neck no masses - Respiratory normal expansion - Cardiovascular Rhythm: regular - Abdomen Abdomen: soft, non tender Bariatric Assessment & Plan Plan: Status post sleeve yesterday. Patient is doing quite well. He'll follow-up in 2 weeks. Bariatric Checklist Checklist: Plan: Checklist: EGD: 1. Hiatal hernia: 2. H. Pylori: HgbA1c: Vitamin D: Smoking: Never smoker Primary care physician referral: Dr. Israel Mayen Psychiatry clearance: Cardiology clearance: Sleep study: Diet journal: VTE risk score: VTE risk level: Rehab needs at discharge:
[2017-12-03 15:27] VITALS: BMI 41.9
== END | disposition home or self-care (01) ==
LOC: BARWHC3 14:30
PROVIDERS: ATTEND Surgery
DX: E66.01 Morbid (severe) obesity due to excess calories (principal); Z68.41 Body mass index [BMI] 40.0-44.9, adult
CPT/HCPCS: 97803; 99211

== ENCOUNTER → 2017-12-17 | Outpatient (CLI) | payer BC ==
[2017-12-17 14:54] VITALS: BMI 41.3
[2017-12-17 15:42] VITALS: BP 113/80; PULSE 69; RESP 16; TEMP 97.8
--- NOTE | 2017-12-17 17:08 | P.HPBAR ---
Bariatric H&P - History & Physicial H&P Date: 12/17/17 History & Physicial: Visit/CC: sleeve follow-up Patient initial contact: Initial weight: 166.151 kg Initial weight in pounds: 366.30 Height: 6 ft 2 in Initial BMI: 47.0 Last weight: Current weight: 146.057 kg Current weight in pounds: 322.00 Current BMI: 41.3 [place] body weight (based on NIH guidelines): 86.183 kg Excess body weight loss: 25.1% The patient is a 42 year-old M who presents for Bariatric Assessment. The patient presents today for sleeve gastrectomy follow-up. He's had some mild GERD symptoms. Past Medical History Past Medical History: No Reported History Additional Past Medical History / Comment(s): chronic esophagitis dx 03/20/17 by EGD (Dr. Reddy), states he has herniated discs between L1 and S1 (one of which is near deterioration) History of Any Multi-Drug Resistant Organisms: None Reported Past Surgical History: Ear Surgery Additional Past Surgical History / Comment(s): Ear tubes as a child, pain injections lower back . Past Anesthesia/Blood Transfusion Reactions: No Reported Reaction Additional Past Anesthesia/Blood Transfusion Reaction / Comm: Has never had general anesthesia, no problems noted with [place] anesthesia for EGD on Past Psychological History: No Psychological Hx Reported Smoking Status: Never smoker Past Alcohol Use History: Occasional Past Drug Use History: Marijuana Additional Drug Use History / Comment(s): occasional marijuana for back pain - Past Family History Mother Family Medical History: Diabetes Mellitus Additional Family Medical History / Comment(s): DDD, Anusha en Y sx, open heart sx , heart valve replacement, DM, Multiple back sx, lung disorder originated from [place] and led to mold spores in lungs, smoker Father Family Medical History: No Reported History Additional Family Medical History / Comment(s): patient states father does not go to the doctor, has bad knees but that's about it. Surgical - Exam Vital Signs Temp Pulse Resp BP 97.8 F 69 16 113/80 12/17/17 15:40 12/17/17 15:40 12/17/17 15:40 12/17/17 15:40 - General well developed, no distress, moderate distress - Eyes PERRL - Abdomen Abdomen: soft, non tender Bariatric Assessment & Plan Plan: Status post sleeve gastrectomy. Patient is doing quite well. His GERD symptoms are minimal and will be observed. Bariatric Checklist Checklist: Plan: Checklist: EGD: 1. Hiatal hernia: 2. H. Pylori: HgbA1c: Vitamin D: Smoking: Never smoker Primary care physician referral: Dr. Israel Mayen Psychiatry clearance: Cardiology clearance: Sleep study: Diet journal: VTE risk score: VTE risk level: Rehab needs at discharge:
== END | disposition home or self-care (01) ==
LOC: BARWHC3 13:09
PROVIDERS: ATTEND Surgery
DX: Z48.815 Encounter for surgical aftercare following surgery on the digestive system (principal); E66.01 Morbid (severe) obesity due to excess calories; Z68.41 Body mass index [BMI] 40.0-44.9, adult; Z98.84 Bariatric surgery status
CPT/HCPCS: 97803; 99211

== ENCOUNTER → 2018-01-14 | Outpatient (CLI) | payer BC ==
[2018-01-14 14:22] VITALS: BP 120/78; PULSE 72; TEMP 98.1; BMI 39.5
[2018-01-14 14:39] LABS: HCT 42.2 % (39.0-53.0); HGB 13.5 gm/dL (13.0-17.5); MCH 29.6 pg (25.0-35.0); MCHC 31.9 g/dL (31.0-37.0); MCV 92.8 fL (80.0-100.0); Mean Platelet Volume 6.8; Platelet Count 216 k/uL (150-450); RBC 4.55 m/uL (4.30-5.90); RDW 13.7 % (11.5-15.5); WBC 11.6 k/uL (3.8-10.6)
[2018-01-14 14:58] LABS: ALT 70 U/L (21-72); AST 39 U/L (17-59); Albumin 4.1 g/dL (3.5-5.0); Alkaline Phosphatase 67 U/L (38-126); Anion Gap 10 mmol/L; Blood Urea Nitrogen 19 mg/dL (9-20); Calcium 9.5 mg/dL (8.4-10.2); Carbon Dioxide 28 mmol/L (22-30); Chloride 104 mmol/L (98-107); Glucose 96 mg/dL (74-99); Potassium 4.1 mmol/L (3.5-5.1); Sodium 142 mmol/L (137-145); Total Bilirubin 0.4 mg/dL (0.2-1.3); Total Protein 7.1 g/dL (6.3-8.2)
--- NOTE | 2018-01-14 15:27 | P.HPBAR ---
Bariatric H&P - History & Physicial H&P Date: 01/14/18 History & Physicial: Visit/CC: 2 mos f/u gastric sleeve (sx 11-21-17) Patient initial contact: Initial weight: 166.151 kg Initial weight in pounds: 366.30 Height: 6 ft 1.5 in Initial BMI: 47.7 Last weight: 260 Current weight: 137.892 kg Current weight in pounds: 304.00 Current BMI: 39.5 [place] body weight (based on NIH guidelines): 137.892 kg Excess body weight loss: 100.0% The patient is a 42 year-old M who presents for Bariatric Assessment. Patient presents today for sleeve gastrectomy fall. He's lost another 9 pounds since his last visit. He is currently down 62 pounds since surgery. He has had some minimal GERD. Past Medical History Past Medical History: No Reported History Additional Past Medical History / Comment(s): chronic esophagitis dx 03/20/17 by EGD (Dr. 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 Mayers) Past Anesthesia/Blood Transfusion Reactions: No Reported Reaction Additional Past Anesthesia/Blood Transfusion Reaction / Comm: Has never had general anesthesia, no problems noted with [place] anesthesia for EGD on Past Psychological History: No Psychological Hx Reported Smoking Status: Never smoker Past Alcohol Use History: Occasional Past Drug Use History: Marijuana Additional Drug Use History / Comment(s): occasional marijuana for back pain - Past Family History Mother Family Medical History: Diabetes Mellitus Additional Family Medical History / Comment(s): DDD, Anusha en Y sx, open heart sx , heart valve replacement, DM, Multiple back sx, lung disorder originated from [place] and led to mold spores in lungs, smoker Father Family Medical History: No Reported History Additional Family Medical History / Comment(s): patient states father does not go to the doctor, has bad knees but that's about it. Surgical - Exam Vital Signs Temp Pulse BP 98.1 F 72 120/78 01/14/18 14:11 01/14/18 14:11 01/14/18 14:11 - General well developed, well nourished, no distress - Eyes PERRL - ENT normal pinna - Cardiovascular Rhythm: regular - Abdomen Abdomen: soft, non tender Results - Labs 01/14/18 14:25 01/14/18 14:25 Abnormal Lab Results - Last 24 Hours (Table) 01/14/18 Range/Units 14:25 WBC 11.6 H (3.8-10.6) k/uL Diabetes panel 01/14/18 Range/Units 14:25 Sodium 142 (137-145) mmol/L Potassium 4.1 (3.5-5.1) mmol/L Chloride 104 (98-107) mmol/L Carbon Dioxide 28 (22-30) mmol/L BUN 19 (9-20) mg/dL Creatinine 0.69 (0.66-1.25) mg/dL Glucose 96 (74-99) mg/dL Calcium 9.5 (8.4-10.2) mg/dL AST 39 (17-59) U/L ALT 70 (21-72) U/L Alkaline Phosphatase 67 (38-126) U/L Total Protein 7.1 (6.3-8.2) g/dL Albumin 4.1 (3.5-5.0) g/dL Calcium panel 01/14/18 Range/Units 14:25 Calcium 9.5 (8.4-10.2) mg/dL Albumin 4.1 (3.5-5.0) g/dL Pituitary panel 01/14/18 Range/Units 14:25 Sodium 142 (137-145) mmol/L Potassium 4.1 (3.5-5.1) mmol/L Chloride 104 (98-107) mmol/L Carbon Dioxide 28 (22-30) mmol/L BUN 19 (9-20) mg/dL Creatinine 0.69 (0.66-1.25) mg/dL Glucose 96 (74-99) mg/dL Calcium 9.5 (8.4-10.2) mg/dL Adrenal panel 01/14/18 Range/Units 14:25 Sodium 142 (137-145) mmol/L Potassium 4.1 (3.5-5.1) mmol/L Chloride 104 (98-107) mmol/L Carbon Dioxide 28 (22-30) mmol/L BUN 19 (9-20) mg/dL Creatinine 0.69 (0.66-1.25) mg/dL Glucose 96 (74-99) mg/dL Calcium 9.5 (8.4-10.2) mg/dL Total Bilirubin 0.4 (0.2-1.3) mg/dL AST 39 (17-59) U/L ALT 70 (21-72) U/L Alkaline Phosphatase 67 (38-126) U/L Total Protein 7.1 (6.3-8.2) g/dL Albumin 4.1 (3.5-5.0) g/dL Bariatric Assessment & Plan Plan: Status post sleeve yesterday. Patient has a excellent weight loss. His GERD is minimal old observed. He'll follow-up in one month. Bariatric Checklist Checklist: Plan: Checklist: EGD: 1. Hiatal hernia: 2. H. Pylori: HgbA1c: Vitamin D: Smoking: Never smoker Primary care physician referral: Dr. Israel Mayen Psychiatry clearance: Cardiology clearance: Sleep study: Diet journal: VTE risk score: VTE risk level: Rehab needs at discharge:
[2018-01-14 19:32] LABS: Iron Saturation 15.27 (15.00-50.00)
[2018-01-14 19:40] LABS: Vitamin D 25 Hydroxy 21.2 ng/mL (30.0-100.0)
[2018-01-14 20:15] LABS: Folate, Serum 21.3 ng/mL
== END | disposition home or self-care (01) ==
LOC: BARWHC3 12:51
PROVIDERS: ATTEND Surgery
DX: Z48.815 Encounter for surgical aftercare following surgery on the digestive system (principal); E44.0 Moderate protein-calorie malnutrition; E55.9 Vitamin D deficiency, unspecified; E66.01 Morbid (severe) obesity due to excess calories; Z68.39 Body mass index [BMI] 39.0-39.9, adult; Z98.84 Bariatric surgery status
CPT/HCPCS: 80053; 82306; 82607; 82746; 83540; 83550; 84134; 84425; 84443; 85027; 99211

== ENCOUNTER → 2018-02-11 | Outpatient (CLI) | payer BC ==
[2018-02-11 15:43] VITALS: BMI 38.1
[2018-02-11 15:47] VITALS: BP 122/72; PULSE 78; RESP 16; TEMP 98.2
--- NOTE | 2018-02-11 16:29 | P.HPBAR ---
Bariatric H&P - History & Physicial H&P Date: 02/11/18 History & Physicial: Visit/CC: SLEEVE FOLLOW-UP Patient initial contact: Initial weight: 166.151 kg Initial weight in pounds: 366.30 Height: 6 ft 1.5 in Initial BMI: 47.7 Last weight: Current weight: 132.903 kg Current weight in pounds: 293.00 Current BMI: 38.1 [place] body weight (based on NIH guidelines): 84.822 kg Excess body weight loss: 40.8% The patient is a 42 year-old M who presents for Bariatric Assessment. The patient has had excellent weight loss. He's had some minimal GERD. He denies any dysphagia. Past Medical History Past Medical History: No Reported History Additional Past Medical History / Comment(s): chronic esophagitis dx 03/20/17 by EGD (Dr. 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 Mayers) Past Anesthesia/Blood Transfusion Reactions: No Reported Reaction Additional Past Anesthesia/Blood Transfusion Reaction / Comm: Has never had general anesthesia, no problems noted with [place] anesthesia for EGD on Past Psychological History: No Psychological Hx Reported Smoking Status: Never smoker Past Alcohol Use History: Occasional Past Drug Use History: Marijuana Additional Drug Use History / Comment(s): occasional marijuana for back pain - Past Family History Mother Family Medical History: Diabetes Mellitus Additional Family Medical History / Comment(s): DDD, Anusha en Y sx, open heart sx , heart valve replacement, DM, Multiple back sx, lung disorder originated from [place] and led to mold spores in lungs, smoker Father Family Medical History: No Reported History Additional Family Medical History / Comment(s): patient states father does not go to the doctor, has bad knees but that's about it. Surgical - Exam Vital Signs Temp Pulse Resp BP 98.2 F 78 16 122/72 02/11/18 15:45 02/11/18 15:45 02/11/18 15:45 02/11/18 15:45 - General well developed, no distress - Eyes PERRL - ENT normal pinna - Neck no masses - Respiratory normal expansion - Cardiovascular Rhythm: regular - Abdomen Abdomen: soft, non tender Bariatric Assessment & Plan Plan: Status post sleeve yesterday. Patient still quite well. He will follow-up in 4 weeks. His GERD is minimal and will be observed. Bariatric Checklist Checklist: Plan: Checklist: EGD: 1. Hiatal hernia: 2. H. Pylori: HgbA1c: Vitamin D: Smoking: Never smoker Primary care physician referral: Dr. Israel Mayen Psychiatry clearance: Cardiology clearance: Sleep study: Diet journal: VTE risk score: VTE risk level: Rehab needs at discharge:
== END ==
LOC: BARWHC3 13:10
PROVIDERS: ATTEND Surgery
DX: Z48.815 Encounter for surgical aftercare following surgery on the digestive system (principal); K21.9 Gastro-esophageal reflux disease without esophagitis; E66.01 Morbid (severe) obesity due to excess calories; F17.200 Nicotine dependence, unspecified, uncomplicated; Z68.38 Body mass index [BMI] 38.0-38.9, adult; Z98.84 Bariatric surgery status
CPT/HCPCS: 97803; 99211

== ENCOUNTER → 2018-03-11 | Outpatient (CLI) | payer BC ==
[2018-03-11 14:30] VITALS: BP 108/66; PULSE 54; RESP 16; TEMP 97.8; BMI 36.9
--- NOTE | 2018-03-11 16:51 | P.HPBAR ---
Bariatric H&P - History & Physicial H&P Date: 03/11/18 History & Physicial: Visit/CC: sleeve follow-up Patient initial contact: Initial weight: 166.151 kg Initial weight in pounds: 366.30 Height: 6 ft 1.5 in Initial BMI: 47.7 Last weight: Current weight: 128.82 kg Current weight in pounds: 284.00 Current BMI: 36.9 [place] body weight (based on NIH guidelines): 84.822 kg Excess body weight loss: 45.9% The patient is a 42 year-old M who presents for Bariatric Assessment. Patient presents today for sleeve gastrectomy follow-up. He feels well. He is an excellent weight loss. He has had some minimal GERD. Past Medical History Past Medical History: No Reported History Additional Past Medical History / Comment(s): chronic esophagitis dx 03/20/17 by EGD (Dr. 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 Mayers) Past Anesthesia/Blood Transfusion Reactions: No Reported Reaction Additional Past Anesthesia/Blood Transfusion Reaction / Comm: Has never had general anesthesia, no problems noted with [place] anesthesia for EGD on Past Psychological History: No Psychological Hx Reported Smoking Status: Never smoker Past Alcohol Use History: Occasional Past Drug Use History: Marijuana Additional Drug Use History / Comment(s): occasional marijuana for back pain - Past Family History Mother Family Medical History: Diabetes Mellitus Additional Family Medical History / Comment(s): DDD, Anusha en Y sx, open heart sx , heart valve replacement, DM, Multiple back sx, lung disorder originated from [place] and led to mold spores in lungs, smoker Father Family Medical History: No Reported History Additional Family Medical History / Comment(s): patient states father does not go to the doctor, has bad knees but that's about it. Surgical - Exam Vital Signs Temp Pulse Resp BP 97.8 F 54 L 16 108/66 03/11/18 14:27 03/11/18 14:27 03/11/18 14:27 03/11/18 14:27 - General well developed, no distress - Eyes PERRL - Abdomen Abdomen: soft, non tender Bariatric Assessment & Plan Plan: Sessile sleeve yesterday. Patient is an excellent weight loss. His GERD is minimal and observed. He'll follow-up in 4 weeks. Bariatric Checklist Checklist: Plan: Checklist: EGD: 1. Hiatal hernia: 2. H. Pylori: HgbA1c: Vitamin D: Smoking: Never smoker Primary care physician referral: Dr. Israel Mayen Psychiatry clearance: Cardiology clearance: Sleep study: Diet journal: VTE risk score: VTE risk level: Rehab needs at discharge:
== END ==
LOC: BARWHC3 14:00
PROVIDERS: ATTEND Surgery
DX: Z48.815 Encounter for surgical aftercare following surgery on the digestive system (principal); K21.9 Gastro-esophageal reflux disease without esophagitis; Z98.84 Bariatric surgery status
CPT/HCPCS: 99211

== ENCOUNTER → 2018-04-27 | Outpatient (CLI) | payer BC ==
[2018-04-27 08:33] LABS: HCT 40.8 % (39.0-53.0); HGB 13.7 gm/dL (13.0-17.5); MCH 30.9 pg (25.0-35.0); MCHC 33.7 g/dL (31.0-37.0); MCV 91.8 fL (80.0-100.0); Mean Platelet Volume 6.3; Platelet Count 207 k/uL (150-450); RBC 4.45 m/uL (4.30-5.90); RDW 12.6 % (11.5-15.5); WBC 11.4 k/uL (3.8-10.6)
[2018-04-27 17:03] LABS: Iron Saturation 18.33 (15.00-50.00)
[2018-04-27 17:12] LABS: Vitamin D 25 Hydroxy 26.6 ng/mL (30.0-100.0)
[2018-04-27 17:14] LABS: Folate, Serum 18.4 ng/mL
[2018-04-27 17:53] LABS: Albumin 4.1 g/dL (3.80-4.90); Albumin/Globulin Ratio 1.86 (1.20-2.10); Anion Gap 6.9 mmol/L (4.00-12.00); Carbon Dioxide 27.1 mmol/L (21.6-31.8); Globulin 2.2 g/dL (1.6-3.3); Potassium 4.5 mmol/L (3.5-5.5); Total Bilirubin 0.3 mg/dL (0.2-1.2); Total Protein 6.3 g/dL (6.2-8.2)
== END | disposition home or self-care (01) ==
LOC: LABWHC1 08:10
PROVIDERS: ATTEND Surgery
DX: D50.8 Other iron deficiency anemias (principal); E44.0 Moderate protein-calorie malnutrition; E66.01 Morbid (severe) obesity due to excess calories
CPT/HCPCS: 36415; 80053; 82306; 82607; 82746; 83540; 83550; 84134; 84425; 84443; 85027

== ENCOUNTER → 2018-05-13 | Outpatient (CLI) | payer BC ==
[2018-05-13 14:47] VITALS: BMI 35.9
--- NOTE | 2018-05-13 16:46 | P.HPBAR ---
Bariatric H&P - History & Physicial H&P Date: 05/13/18 History & Physicial: Visit/CC: Patient initial contact: Initial weight: 166.151 kg Initial weight in pounds: Height: 6 ft 1.5 in Initial BMI: Last weight: Current weight: 125.191 kg Current weight in pounds: Current BMI: 35.9 [place] body weight (based on NIH guidelines): 85 kg Excess body weight loss: The patient is a 42 year-old M who presents for Bariatric Assessment. Patient presents today for sleeve gastrectomy follow-up. He is doing quite well. He is loss another 8 pounds. He's had some issues with his blood pressure. Past Medical History Past Medical History: No Reported History Additional Past Medical History / Comment(s): chronic esophagitis dx 03/20/17 by EGD (Dr. 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 Mayers) Past Anesthesia/Blood Transfusion Reactions: No Reported Reaction Additional Past Anesthesia/Blood Transfusion Reaction / Comm: Has never had general anesthesia, no problems noted with [place] anesthesia for EGD on Past Psychological History: No Psychological Hx Reported Smoking Status: Never smoker Past Alcohol Use History: Occasional Past Drug Use History: Marijuana Additional Drug Use History / Comment(s): occasional marijuana for back pain - Past Family History Mother Family Medical History: Diabetes Mellitus Additional Family Medical History / Comment(s): DDD, Anusha en Y sx, open heart sx , heart valve replacement, DM, Multiple back sx, lung disorder originated from [place] and led to mold spores in lungs, smoker Father Family Medical History: No Reported History Additional Family Medical History / Comment(s): patient states father does not go to the doctor, has bad knees but that's about it. Surgical - Exam - General well developed, no distress - Eyes PERRL - Abdomen Abdomen: soft, non tender Bariatric Assessment & Plan Plan: The patient is doing quite well. His GERD is minimal old observed. With regards to his hypotension. The patient will follow Dr. Maeyn. He will increase his oral fluid intake. Bariatric Checklist Checklist: Plan: Checklist: EGD: 1. Hiatal hernia: 2. H. Pylori: HgbA1c: Vitamin D: Smoking: Never smoker Primary care physician referral: Dr. Israel Mayen Psychiatry clearance: Cardiology clearance: Sleep study: Diet journal: VTE risk score: VTE risk level: Rehab needs at discharge:
[2018-05-13 16:48] VITALS: BP 110/70; PULSE 50; TEMP 97.9
== END | disposition home or self-care (01) ==
LOC: BARWHC3 12:57
PROVIDERS: ATTEND Surgery
DX: E66.01 Morbid (severe) obesity due to excess calories (principal); Z68.35 Body mass index [BMI] 35.0-35.9, adult
CPT/HCPCS: 97803; 99211

== ENCOUNTER → 2018-07-29 | Outpatient (CLI) | payer BC ==
[2018-07-29 16:55] LABS: HCT 43.9 % (39.0-53.0); HGB 14.4 gm/dL (13.0-17.5); MCH 29.8 pg (25.0-35.0); MCHC 32.7 g/dL (31.0-37.0); MCV 91.1 fL (80.0-100.0); Mean Platelet Volume 6.3; Platelet Count 226 k/uL (150-450); RBC 4.82 m/uL (4.30-5.90); WBC 10.5 k/uL (3.8-10.6)
[2018-07-29 23:37] LABS: Iron Saturation 15.08 (15.00-50.00)
[2018-07-29 23:45] LABS: Vitamin D 25 Hydroxy 49.7 ng/mL (30.0-100.0)
[2018-07-29 23:56] LABS: Folate, Serum >24.0 ng/mL
[2018-07-30 00:02] LABS: Albumin 4.6 g/dL (3.80-4.90); Anion Gap 9.5 mmol/L (4.00-12.00); Calcium 9.3 mg/dL (8.7-10.3); Carbon Dioxide 26.5 mmol/L (21.6-31.8); Globulin 2.3 g/dL (1.6-3.3); Potassium 4.1 mmol/L (3.5-5.5); Total Bilirubin 0.3 mg/dL (0.3-1.2); Total Protein 6.9 g/dL (6.2-8.2)
[2018-07-31 06:44] LABS: Vit B1(Thiamine) 85 ug/L (38-122)
[2018-07-31 07:08] LABS: Vitamin A 44 ug/dL (38-106)
== END | disposition home or self-care (01) ==
LOC: LABWHC1 16:00
PROVIDERS: ATTEND Surgery
DX: E66.01 Morbid (severe) obesity due to excess calories (principal); D50.8 Other iron deficiency anemias; E44.0 Moderate protein-calorie malnutrition; E55.9 Vitamin D deficiency, unspecified
CPT/HCPCS: 36415; 80053; 82306; 82607; 82728; 82746; 83540; 83550; 84134; 84425; 84443; 84590; 85027

== ENCOUNTER → 2018-08-05 | Outpatient (CLI) | payer BC ==
[2018-08-05 13:49] VITALS: BP 117/74; PULSE 54; TEMP 97.7; BMI 32.5
== END | disposition home or self-care (01) ==
LOC: BARWHC3 13:19
PROVIDERS: ATTEND Surgery
DX: E66.01 Morbid (severe) obesity due to excess calories (principal); Z68.32 Body mass index [BMI] 32.0-32.9, adult
CPT/HCPCS: 97803; 99211

== ENCOUNTER → 2018-10-24 | Outpatient (CLI) | payer BC ==
[2018-10-24 17:00] LABS: HCT 39.6 % (39.0-53.0); HGB 13.2 gm/dL (13.0-17.5); MCH 30.9 pg (25.0-35.0); MCHC 33.4 g/dL (31.0-37.0); MCV 92.3 fL (80.0-100.0); Mean Platelet Volume 6.2; Platelet Count 170 k/uL (150-450); RBC 4.29 m/uL (4.30-5.90); RDW 12.8 % (11.5-15.5); WBC 9.1 k/uL (3.8-10.6)
[2018-10-24 23:55] LABS: African American GFR (CKD) 121.7 (60.0-200.0); Albumin 4.2 g/dL (3.80-4.90); Albumin/Globulin Ratio 1.75 (1.60-3.17); Anion Gap 9.3 mmol/L (4.00-12.00); BUN/Creat Ratio 23.33 Ratio (12.00-20.00); Calcium 9.3 mg/dL (8.7-10.3); Carbon Dioxide 23.7 mmol/L (21.6-31.8); Globulin 2.4 g/dL (1.6-3.3); Potassium 3.9 mmol/L (3.5-5.5); Total Bilirubin 0.3 mg/dL (0.3-1.2); Total Protein 6.6 g/dL (6.2-8.2)
[2018-10-25 00:01] LABS: Iron Saturation 20.8 (15.00-50.00)
[2018-10-25 00:10] LABS: Vitamin D 25 Hydroxy 38.3 ng/mL (30.0-100.0)
[2018-10-25 00:11] LABS: Folate, Serum 19.6 ng/mL
[2018-10-26 12:58] LABS: Vit B1(Thiamine) 67 ug/L (38-122)
== END | disposition home or self-care (01) ==
LOC: LABWHC1 16:00
PROVIDERS: ATTEND Surgery
DX: D50.8 Other iron deficiency anemias (principal); K91.2 Postsurgical malabsorption, not elsewhere classified; E44.0 Moderate protein-calorie malnutrition; E55.9 Vitamin D deficiency, unspecified
CPT/HCPCS: 36415; 80053; 82306; 82607; 82728; 82746; 83540; 83550; 84134; 84425; 84443; 84590; 85027

== ENCOUNTER → 2018-11-04 | Outpatient (CLI) | payer BC ==
[2018-11-04 14:21] VITALS: BP 99/62; PULSE 49; TEMP 97.8; BMI 32.8
--- NOTE | 2018-11-04 14:28 | P.HPBAR ---
Bariatric H&P - History & Physicial H&P Date: 11/04/18 History & Physicial: Visit/CC: one year sleeve f/u (sx October 2017) Patient initial contact: Initial weight: 166.151 kg Initial weight in pounds: 366.30 Height: 6 ft 1.5 in Initial BMI: 47.7 Last weight: Current weight: 114.305 kg Current weight in pounds: 252.00 Current BMI: 32.8 [place] body weight (based on NIH guidelines): 84.822 kg Excess body weight loss: 63.7% The patient is a 43 year-old M who presents for Bariatric Assessment. Patient presents today for sleeve gastrectomy follow-up. He is doing quite well. He's lost approximately 100 pounds over the last year. His current BMI is 33. He has some minimal GERD. Past Medical History Past Medical History: No Reported History Additional Past Medical History / Comment(s): chronic esophagitis dx 03/20/17 by EGD (Dr. 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 Mayers) Past Anesthesia/Blood Transfusion Reactions: No Reported Reaction Additional Past Anesthesia/Blood Transfusion Reaction / Comm: Has never had general anesthesia, no problems noted with [place] anesthesia for EGD on 03-20-17 Past Psychological History: No Psychological Hx Reported Smoking Status: Never smoker Past Alcohol Use History: Occasional Past Drug Use History: Marijuana Additional Drug Use History / Comment(s): occasional marijuana for back pain - Past Family History Mother Family Medical History: Diabetes Mellitus Additional Family Medical History / Comment(s): DDD, Anusha en Y sx, open heart sx, heart valve replacement, DM, Multiple back sx, lung disorder originated from [place] and led to mold spores in lungs, smoker Father Family Medical History: No Reported History Additional Family Medical History / Comment(s): patient states father does not go to the doctor, has bad knees but that's about it. Surgical - Exam Vital Signs Temp Pulse BP 97.8 F 49 L 99/62 11/04/18 14:16 11/04/18 14:16 11/04/18 14:16 - General well developed, well nourished, no distress - Eyes PERRL - Abdomen Abdomen: soft, non tender Bariatric Assessment & Plan Plan: Status post sleeve gastrectomy. Patient's had excellent weight loss. His GERD is minimal and will be observed. He'll follow-up in 3 months. Bariatric Checklist Checklist: Plan: Checklist: EGD: 1. Hiatal hernia: 2. H. Pylori: HgbA1c: Vitamin D: Smoking: Never smoker Primary care physician referral: Dr. Israel Mayen Psychiatry clearance: Cardiology clearance: Sleep study: Diet journal: VTE risk score: VTE risk level: Rehab needs at discharge:
== END ==
LOC: BARWHC3 12:59
PROVIDERS: ATTEND Surgery
DX: Z48.815 Encounter for surgical aftercare following surgery on the digestive system (principal); K21.9 Gastro-esophageal reflux disease without esophagitis; E66.01 Morbid (severe) obesity due to excess calories; Z68.32 Body mass index [BMI] 32.0-32.9, adult; Z98.84 Bariatric surgery status
CPT/HCPCS: 97803; 99211

== ENCOUNTER → 2019-02-03 | Outpatient (CLI) | payer BC ==
[2019-02-03 13:25] VITALS: BP 118/62; PULSE 62; RESP 16; TEMP 98.2; BMI 30.2
--- NOTE | 2019-02-03 17:08 | P.HPBAR ---
Bariatric H&P - History & Physicial H&P Date: 02/03/19 History & Physicial: Visit/CC: sleeve f/u Patient initial contact: Initial weight: 166.151 kg Initial weight in pounds: 366.30 Height: 6 ft 1.5 in Initial BMI: 47.7 Last weight: Current weight: 105.233 kg Current weight in pounds: 232.00 Current BMI: 30.2 [place] body weight (based on NIH guidelines): 84.822 kg Excess body weight loss: 74.9% The patient is a 43 year-old M who presents for Bariatric Assessment. Patient presents today for sleeve gastrectomy fall. He is doing well. He is loss another 20 pounds last visit. He's had some minimal GERD. Past Medical History Past Medical History: No Reported History Additional Past Medical History / Comment(s): chronic esophagitis dx 03/20/17 by EGD (Dr. 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 Mayers) Past Anesthesia/Blood Transfusion Reactions: No Reported Reaction Additional Past Anesthesia/Blood Transfusion Reaction / Comm: Has never had general anesthesia, no problems noted with [place] anesthesia for EGD on 03-20-17 Past Psychological History: No Psychological Hx Reported Smoking Status: Never smoker Past Alcohol Use History: Occasional Past Drug Use History: Marijuana Additional Drug Use History / Comment(s): occasional marijuana for back pain - Past Family History Mother Family Medical History: Diabetes Mellitus Additional Family Medical History / Comment(s): DDD, Anusha en Y sx, open heart sx, heart valve replacement, DM, Multiple back sx, lung disorder originated from [place] and led to mold spores in lungs, smoker Father Family Medical History: No Reported History Additional Family Medical History / Comment(s): patient states father does not go to the doctor, has bad knees but that's about it. Surgical - Exam Vital Signs Temp Pulse Resp BP 98.2 F 62 16 118/62 02/03/19 13:23 02/03/19 13:23 02/03/19 13:23 02/03/19 13:23 - General well developed, well nourished, no distress - Eyes PERRL - Abdomen Abdomen: soft, non tender Bariatric Assessment & Plan Plan: Status post sleeve gastrectomy. Patient had excellent weight loss. He will follow-up in 3 months. His GERD is minimal will be observed. Bariatric Checklist Checklist: Plan: Checklist: EGD: 1. Hiatal hernia: 2. H. Pylori: HgbA1c: Vitamin D: Smoking: Never smoker Primary care physician referral: Dr. Israel Mayen Psychiatry clearance: Cardiology clearance: Sleep study: Diet journal: VTE risk score: VTE risk level: Rehab needs at discharge:
== END ==
LOC: BARWHC3 12:53
PROVIDERS: ATTEND Surgery
DX: Z48.815 Encounter for surgical aftercare following surgery on the digestive system (principal); K21.9 Gastro-esophageal reflux disease without esophagitis; Z98.84 Bariatric surgery status
CPT/HCPCS: 99211

== ENCOUNTER 2019-04-13 02:20 | Emergency (ER) | payer BC ==
[2019-04-13] MEDS ORDERED: ONDANSETRON 4 MG/2 ML VIAL IVP STA (02:44)
[2019-04-13] MEDS ORDERED: SODIUM CHLORIDE 0.9% 2,000 ML IV STA (02:44)
[2019-04-13] MEDS ORDERED: MORPHINE SULFATE 4 MG/ML SYRINGE IV STA (02:44)
[2019-04-13 03:06] LABS: Basophils % (A) 0 %; Eosinophils # (A) 0.3 k/uL (0-0.7); Eosinophils % (A) 3 %; HCT 43.5 % (39.0-53.0); HGB 14.5 gm/dL (13.0-17.5); Lymphocytes # (A) 2.8 k/uL (1.0-4.8); Lymphocytes % (A) 35 %; MCH 30.9 pg (25.0-35.0); MCHC 33.3 g/dL (31.0-37.0); MCV 92.8 fL (80.0-100.0); Mean Platelet Volume 6.7; Monocytes # (A) 0.5 k/uL (0-1.0); Monocytes % (A) 6 %; Neutrophils # (A) 4.4 k/uL (1.3-7.7); Neutrophils % (A) 54 %; Platelet Count 202 k/uL (150-450); RBC 4.69 m/uL (4.30-5.90); WBC 8.1 k/uL (3.8-10.6)
[2019-04-13 03:13] LABS: ALT 17 U/L (4-49); AST 23 U/L (17-59); African American GFR (CKD) >90 (>60 ml/min/1.73 sqM); Albumin 4.5 g/dL (3.5-5.0); Alkaline Phosphatase 80 U/L (38-126); Amylase 61 U/L (30-110); Anion Gap 7 mmol/L; Blood Urea Nitrogen 17 mg/dL (9-20); Calcium 9.2 mg/dL (8.4-10.2); Carbon Dioxide 28 mmol/L (22-30); Chloride 105 mmol/L (98-107); Glucose 121 mg/dL (74-99); Non-African American GFR(CKD) >90 (>60 ml/min/1.73 sqM); Potassium 4.4 mmol/L (3.5-5.1); Sodium 140 mmol/L (137-145); Total Bilirubin 0.5 mg/dL (0.2-1.3); Total Protein 7.4 g/dL (6.3-8.2)
[2019-04-13] MEDS ORDERED: HYDROmorphone 1 MG/ML 1 ML SYRINGE IVP STA (03:27)
--- NOTE | 2019-04-13 03:55 | ED ---
Abdominal Pain HPI - General Chief Complaint: Abdominal Pain Stated Complaint: Abdominal Pain Time Seen by Provider: 04/13/19 02:33 Source: patient Limitations: no limitations - History of Present Illness MD Complaint: abdominal pain Onset/Timin -: hour(s) Location: epigastric Radiation: none Migration to: no migration Severity: severe Quality: cramping, sharp Consistency: constant Improves With: nothing Worsens With: nothing Associated Symptoms: nausea - Related Data Home Medications Medication Instructions Recorded Confirmed Calcium Citrate 500 mg PO TID 12/19/17 02/03/19 Multivitamins, Thera [Multivitamin 1 tab PO DAILY 12/19/17 02/03/19 (formulary)] Cholecalciferol (Vitamin D3) 10,000 unit PO DAILY 05/13/18 02/03/19 [Vitamin D3] Ferrous Sulfate [Feosol] 325 mg PO DAILY 05/13/18 02/03/19 Iron 18 mg PO BID 08/07/18 02/03/19 Amoxicillin 500 mg PO Q8H 02/03/19 02/03/19 Allergies Allergy/AdvReac Type Severity Reaction Status Date / Time No Known Allergies Allergy Verified 02/03/19 13:52 Review of Systems ROS Statement: Those systems with pertinent positive or pertinent negative responses have been documented in the HPI. ROS Other: All systems not noted in ROS Statement are negative. Constitutional: Denies: fever, chills, weakness Respiratory: Denies: cough, dyspnea Cardiovascular: Denies: chest pain, palpitations, edema Gastrointestinal: Reports: abdominal pain, nausea, constipation. Denies: vomiting, diarrhea, melena, hematochezia Genitourinary: Denies: dysuria, hematuria, testicular pain, testicular mass Musculoskeletal: Denies: back pain Skin: Denies: rash Neurological: Denies: headache Past Medical History Past Medical History: No Reported History Additional Past Medical History / Comment(s): chronic esophagitis dx 03/20/17 by EGD (Dr. 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 Mayers) Past Anesthesia/Blood Transfusion Reactions: No Reported Reaction Additional Past Anesthesia/Blood Transfusion Reaction / Comment(s): Has never had general anesthesia, no problems noted with [place] anesthesia for EGD on 03-20-17 Past Psychological History: No Psychological Hx Reported Smoking Status: Never smoker Past Alcohol Use History: Occasional Past Drug Use History: Marijuana - Past Family History Mother Family Medical History: Diabetes Mellitus Additional Family Medical History / Comment(s): DDD, Anusha en Y sx, open heart sx, heart valve replacement, DM, Multiple back sx, lung disorder originated from pine and led to mold spores in lungs, smoker Father Family Medical History: No Reported History Additional Family Medical History / Comment(s): patient states father does not go to the doctor, has bad knees but that's about it. General Exam Limitations: no limitations General appearance: alert, in no apparent distress Head exam: Present: atraumatic, normocephalic Eye exam: Present: normal appearance. Absent: scleral icterus, conjunctival injection ENT exam: Present: normal oropharynx Respiratory exam: Present: normal lung sounds bilaterally. Absent: respiratory distress, wheezes, rales, rhonchi, stridor Cardiovascular Exam: Present: regular rate, normal rhythm, normal heart sounds. Absent: systolic murmur, diastolic murmur, rubs, gallop GI/Abdominal exam: Present: soft, tenderness (mild epigastric tenderness without rebound or guarding), normal bowel sounds. Absent: distended, guarding, rebound, rigid, mass, pulsatile mass, hernia Extremities exam: Present: normal inspection, normal capillary refill. Absent: pedal edema, calf tenderness Back exam: Present: normal inspection. Absent: CVA tenderness (R), CVA tenderness (L) Neurological exam: Present: alert Skin exam: Present: warm, dry, intact, normal color. Absent: rash Course Vital Signs 04/13/19 04/13/19 04/13/19 02:28 03:02 03:29 Temperature 97.8 F Pulse Rate 74 53 L 58 L Respiratory 18 18 16 Rate Blood Pressure 133/93 134/86 117/78 O2 Sat by Pulse 100 100 97 Oximetry 04/13/19 04:40 Temperature Pulse Rate 50 L Respiratory 18 Rate Blood Pressure 128/76 O2 Sat by Pulse 99 Oximetry Medical Decision Making - Lab Data Result diagrams: 04/13/19 02:50 04/13/19 02:50 Lab Results 04/13/19 04/13/19 04/13/19 Range/Units 02:50 02:50 04:20 WBC 8.1 (3.8-10.6) k/uL RBC 4.69 (4.30-5.90) m/uL Hgb 14.5 (13.0-17.5) gm/dL Hct 43.5 (39.0-53.0) % MCV 92.8 (80.0-100.0) fL MCH 30.9 (25.0-35.0) pg MCHC 33.3 (31.0-37.0) g/dL RDW 12.0 (11.5-15.5) % Plt Count 202 (150-450) k/uL Neutrophils % 54 % Lymphocytes % 35 % Monocytes % 6 % Eosinophils % 3 % Basophils % 0 % Neutrophils # 4.4 (1.3-7.7) k/uL Lymphocytes # 2.8 (1.0-4.8) k/uL Monocytes # 0.5 (0-1.0) k/uL Eosinophils # 0.3 (0-0.7) k/uL Basophils # 0.0 (0-0.2) k/uL Sodium 140 (137-145) mmol/L Potassium 4.4 (3.5-5.1) mmol/L Chloride 105 (98-107) mmol/L Carbon Dioxide 28 (22-30) mmol/L Anion Gap 7 mmol/L BUN 17 (9-20) mg/dL Creatinine 0.78 (0.66-1.25) mg/dL Est GFR (CKD-EPI)AfAm >90 (>60 ml/min/1.73 sqM) Est GFR (CKD-EPI)NonAf >90 (>60 ml/min/1.73 sqM) Glucose 121 H (74-99) mg/dL Calcium 9.2 (8.4-10.2) mg/dL Total Bilirubin 0.5 (0.2-1.3) mg/dL AST 23 (17-59) U/L ALT 17 (4-49) U/L Alkaline Phosphatase 80 (38-126) U/L Total Protein 7.4 (6.3-8.2) g/dL Albumin 4.5 (3.5-5.0) g/dL Amylase 61 (30-110) U/L Lipase 73 (23-300) U/L Urine Color Light Yellow Urine Appearance Cloudy (Clear) Urine pH 7.5 (5.0-8.0) Ur Specific [place] 1.009 (1.001-1.035) Urine Protein Negative (Negative) Urine Glucose (UA) Negative (Negative) Urine Ketones Trace H (Negative) Urine Blood Negative (Negative) Urine Nitrite Negative (Negative) Urine Bilirubin Negative (Negative) Urine Urobilinogen <2.0 (<2.0) mg/dL Ur Leukocyte Esterase Negative (Negative) Urine RBC 2 (0-5) /hpf Urine WBC 3 (0-5) /hpf Urine Bacteria Rare H (None) /hpf Urine Mucus Rare H (None) /hpf Disposition Clinical Impression: Abdominal pain Disposition: HOME SELF-CARE Condition: Good Instructions (If sedation given, give patient instructions): Abdominal Pain (ED) Is patient prescribed a controlled substance at d/c from ED?: No Referrals: Israel Mayen DO [Primary Care Provider] - 1-2 days
[2019-04-13 04:34] LABS: Appearance,Urine Cloudy (Clear); Bacteria,Urine Rare /hpf; Bilirubin,Urine Negative (Negative); Blood,Urine Negative (Negative); Color,Urine Light Yellow; Glucose,Urine (UA) Negative (Negative); Ketones,Urine Trace (Negative); Leukocyte Esterase,Urine Negative (Negative); Mucus,Urine Rare /hpf; Nitrite,Urine Negative (Negative); PH, Urine 7.5 (5.0-8.0); Protein,Urine Negative (Negative); RBC,Urine 2 /hpf (0-5); Specific Gravity,Urine 1.009 (1.001-1.035); Urobilinogen,Urine <2.0 mg/dL (<2.0); WBC,Urine 3 /hpf (0-5)
[2019-04-13 06:21] VITALS: BP 134/96; PULSE 52; RESP 17
[2019-04-13 06:25] VITALS: TEMP 97.9
== END 2019-04-13 06:25 | disposition home or self-care (01) ==
LOC: EC 02:20
DX: R10.13 Epigastric pain (principal); R11.0 Nausea; Z98.84 Bariatric surgery status
CPT/HCPCS: 36415; 80053; 82150; 83690; 85025; 81001; 99284; 96374; 96375 ×2; 96361; J2270; J2405; J1170

== ENCOUNTER 2019-04-17 19:32 | Emergency (ER) | payer BC ==
[2019-04-17 19:43] VITALS: RESP 18
[2019-04-17] MEDS ORDERED: SODIUM CHLORIDE 0.9% 500 ML 500 ML IV STA (20:04)
[2019-04-17] MEDS ORDERED: MAG HYDROX/AL HYDROX/SIMETH 30 ML, HYOSCYAMINE ELIXIR 10 ML, LIDOCAINE VISCOUS 2% 10 ML PO STA ×3 (20:17)
--- NOTE | 2019-04-17 20:19 | ED ---
General Adult HPI - General Chief complaint: Abdominal Pain Stated complaint: Abd pain Time Seen by Provider: 04/17/19 19:45 Source: patient Mode of arrival: ambulatory Limitations: no limitations - History of Present Illness Initial comments: Dictation was produced using [employer] dictation software. please excuse any grammatical, word or spelling errors. Chief Complaint: 43 yo male presents with abdominal pain. History of Present Illness: A 43-year-old male presents today with abdominal pain. Patient has history of bariatric surgery. Approximately one half years ago patient had sleeve gastrectomy performed by Dr. Mayers. Over the last 1 week patient is been having abdominal pain. He localizes the pain to his epigastric and right upper quadrant region. States it radiates to his back. He states that it's worse especially after eating. Patient reports that his symptoms last for several minutes and resolves spontaneously. Patient seen in the emergency department approximately one week ago where he had negative velia p. Labs were performed showing no processes. Patient denies any fever, chills or night sweats. Patient has mild symptoms currently. The ROS documented in this emergency department record has been reviewed and confirmed by me. Those systems with pertinent positive or negative responses have been documented in the HPI. All other systems are other negative and/or noncontributory. PHYSICAL EXAM: General Impression: Alert and oriented x3, not in acute distress HEENT: Normocephalic atraumatic, extra-ocular movements intact, pupils equal and reactive to light bilaterally, mucous membranes moist. Cardiovascular: Heart regular rate and rhythm, S1&S2 audible, no murmurs, rubs or gallops Chest: Lungs clear to auscultation bilaterally, no rhonchi, no wheeze, no rales Abdomen: Bowel sounds present, abdomen soft, mild tenderness to the right upper quadrant, negative Pritchett sign, non-distended, no organomegaly Musculoskeletal: Pulses present and equal in all extremities, no peripheral edema Motor: no focal deficits noted Neurological: CN II-XII grossly intact, no focal motor or sensory deficits noted Skin: Intact with no visualized rashes Psych: Normal affect and mood ED course: 43 y old male presents chief complaint of abdominal pain. vital signs upon arrival are within acceptable limits.Lavatory evaluation obtained. CBC, metabolic panel obtained. Patient does have elevated liver enzymes. Alk phos is not elevated. Urinalysis is negative. Gallbladder ultrasound shows multiple gallstones without any evidence of acute cholecystitis. Clinical presentation consistent with symptomatic cholelithiasis. Patient to be discharge. Still to follow-up with his surgeon for outpatient cholecystectomy. Instructed in the meantime to avoid fatty foods. Return parameters discussed. Patient clear for discharge. EKG interpretation: Ventricular rate 61, normal sinus rhythm,. Interval 1:30, care is 114, QTc 438. No IN prolongation, no QTC prolongation, no ST or T-wave changes noted. Overall, this EKG is unremarkable - Related Data Home Medications Medication Instructions Recorded Confirmed Calcium Citrate 500 mg PO TID 12/19/17 02/03/19 Multivitamins, Thera [Multivitamin 1 tab PO DAILY 12/19/17 02/03/19 (formulary)] Cholecalciferol (Vitamin D3) 10,000 unit PO DAILY 05/13/18 02/03/19 [Vitamin D3] Ferrous Sulfate [Feosol] 325 mg PO DAILY 05/13/18 02/03/19 Iron 18 mg PO BID 08/07/18 02/03/19 Amoxicillin 500 mg PO Q8H 02/03/19 02/03/19 Previous Rx's Medication Instructions Recorded HYDROcodone/APAP 5-325MG [[place] 1 tab PO Q6HR PRN 3 Days #12 tab 04/17/19 5-325] Allergies Allergy/AdvReac Type Severity Reaction Status Date / Time No Known Allergies Allergy Verified 04/17/19 19:43 Review of Systems ROS Statement: Those systems with pertinent positive or pertinent negative responses have been documented in the HPI. ROS Other: All systems not noted in ROS Statement are negative. Past Medical History Past Medical History: No Reported History Additional Past Medical History / Comment(s): chronic esophagitis dx 03/20/17 by EGD (Dr. 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 Mayers) Past Anesthesia/Blood Transfusion Reactions: No Reported Reaction Additional Past Anesthesia/Blood Transfusion Reaction / Comment(s): Has never had general anesthesia, no problems noted with [place] anesthesia for EGD on 03-20-17 Past Psychological History: No Psychological Hx Reported Smoking Status: Never smoker Past Alcohol Use History: Occasional Past Drug Use History: Marijuana - Past Family History Mother Family Medical History: Diabetes Mellitus Additional Family Medical History / Comment(s): DDD, Anusha en Y sx, open heart sx, heart valve replacement, DM, Multiple back sx, lung disorder originated from [place] and led to mold spores in lungs, smoker Father Family Medical History: No Reported History Additional Family Medical History / Comment(s): patient states father does not go to the doctor, has bad knees but that's about it. General Exam Limitations: no limitations Course Vital Signs 04/17/19 19:40 Temperature 97.8 F Pulse Rate 82 Respiratory 18 Rate Blood Pressure 115/72 O2 Sat by Pulse 97 Oximetry Medical Decision Making - Lab Data Result diagrams: 04/17/19 20:20 04/17/19 20:20 Lab Results 04/17/19 04/17/19 04/17/19 Range/Units 20:20 20:20 21:20 WBC 7.7 (3.8-10.6) k/uL RBC 4.32 (4.30-5.90) m/uL Hgb 13.3 (13.0-17.5) gm/dL Hct 39.5 (39.0-53.0) % MCV 91.5 (80.0-100.0) fL MCH 30.7 (25.0-35.0) pg MCHC 33.5 (31.0-37.0) g/dL RDW 11.6 (11.5-15.5) % Plt Count 217 (150-450) k/uL Neutrophils % 62 % Lymphocytes % 27 % Monocytes % 6 % Eosinophils % 2 % Basophils % 1 % Neutrophils # 4.8 (1.3-7.7) k/uL Lymphocytes # 2.1 (1.0-4.8) k/uL Monocytes # 0.5 (0-1.0) k/uL Eosinophils # 0.2 (0-0.7) k/uL Basophils # 0.1 (0-0.2) k/uL Sodium 139 (137-145) mmol/L Potassium 4.0 (3.5-5.1) mmol/L Chloride 103 (98-107) mmol/L Carbon Dioxide 28 (22-30) mmol/L Anion Gap 8 mmol/L BUN 19 (9-20) mg/dL Creatinine 0.69 (0.66-1.25) mg/dL Est GFR (CKD-EPI)AfAm >90 (>60 ml/min/1.73 sqM) Est GFR (CKD-EPI)NonAf >90 (>60 ml/min/1.73 sqM) Glucose 114 H (74-99) mg/dL Calcium 9.1 (8.4-10.2) mg/dL Total Bilirubin 0.7 (0.2-1.3) mg/dL AST 229 H (17-59) U/L ALT 104 H (4-49) U/L Alkaline Phosphatase 85 (38-126) U/L Total Protein 6.8 (6.3-8.2) g/dL Albumin 3.9 (3.5-5.0) g/dL Lipase 99 (23-300) U/L Urine Color Yellow Urine Appearance Cloudy (Clear) Urine pH 6.5 (5.0-8.0) Ur Specific [place] 1.022 (1.001-1.035) Urine Protein Negative (Negative) Urine Glucose (UA) Negative (Negative) Urine Ketones Negative (Negative) Urine Blood Trace H (Negative) Urine Nitrite Negative (Negative) Urine Bilirubin Negative (Negative) Urine Urobilinogen <2.0 (<2.0) mg/dL Ur Leukocyte Esterase Negative (Negative) Urine RBC 4 (0-5) /hpf Urine WBC 1 (0-5) /hpf Ur Squamous Epith Cells <1 (0-4) /hpf Amorphous Sediment Rare H (None) /hpf Urine Bacteria Rare H (None) /hpf Urine Mucus Rare H (None) /hpf Disposition Clinical Impression: Gallstone Disposition: HOME SELF-CARE Condition: Good Instructions (If sedation given, give patient instructions): Gallstones (ED) Prescriptions: HYDROcodone/APAP 5-325MG [[place] 5-325] 1 tab PO Q6HR PRN 3 Days #12 tab PRN Reason: Severe Pain Is patient prescribed a controlled substance at d/c from ED?: Yes Referrals: Rajesh Mayers MD [STAFF PHYSICIAN] - 1-2 days Time of Disposition: 22:04
[2019-04-17] MEDS ORDERED: HYDROmorphone 0.5 MG/0.5 ML SYRINGE IVP STA (20:26)
[2019-04-17 20:36] LABS: Basophils # (A) 0.1 k/uL (0-0.2); Basophils % (A) 1 %; Eosinophils # (A) 0.2 k/uL (0-0.7); Eosinophils % (A) 2 %; HCT 39.5 % (39.0-53.0); HGB 13.3 gm/dL (13.0-17.5); Lymphocytes # (A) 2.1 k/uL (1.0-4.8); Lymphocytes % (A) 27 %; MCH 30.7 pg (25.0-35.0); MCHC 33.5 g/dL (31.0-37.0); MCV 91.5 fL (80.0-100.0); Mean Platelet Volume 6.7; Monocytes # (A) 0.5 k/uL (0-1.0); Monocytes % (A) 6 %; Neutrophils # (A) 4.8 k/uL (1.3-7.7); Neutrophils % (A) 62 %; Platelet Count 217 k/uL (150-450); RBC 4.32 m/uL (4.30-5.90); RDW 11.6 % (11.5-15.5); WBC 7.7 k/uL (3.8-10.6)
[2019-04-17 20:44] LABS: ALT 104 U/L (4-49); AST 229 U/L (17-59); African American GFR (CKD) >90 (>60 ml/min/1.73 sqM); Albumin 3.9 g/dL (3.5-5.0); Alkaline Phosphatase 85 U/L (38-126); Anion Gap 8 mmol/L; Blood Urea Nitrogen 19 mg/dL (9-20); Calcium 9.1 mg/dL (8.4-10.2); Carbon Dioxide 28 mmol/L (22-30); Chloride 103 mmol/L (98-107); Glucose 114 mg/dL (74-99); Non-African American GFR(CKD) >90 (>60 ml/min/1.73 sqM); Sodium 139 mmol/L (137-145); Total Bilirubin 0.7 mg/dL (0.2-1.3); Total Protein 6.8 g/dL (6.3-8.2)
[2019-04-17 21:30] LABS: Amorphous Sediment,Urine Rare /hpf; Appearance,Urine Cloudy (Clear); Bacteria,Urine Rare /hpf; Bilirubin,Urine Negative (Negative); Blood,Urine Trace (Negative); Color,Urine Yellow; Glucose,Urine (UA) Negative (Negative); Ketones,Urine Negative (Negative); Leukocyte Esterase,Urine Negative (Negative); Mucus,Urine Rare /hpf; Nitrite,Urine Negative (Negative); PH, Urine 6.5 (5.0-8.0); Protein,Urine Negative (Negative); RBC,Urine 4 /hpf (0-5); Specific Gravity,Urine 1.022 (1.001-1.035); Squamous Epithelial Cell,Urine <1 /hpf (0-4); Urobilinogen,Urine <2.0 mg/dL (<2.0); WBC,Urine 1 /hpf (0-5)
--- NOTE | 2019-04-17 21:40 | US ---
EXAMINATION TYPE: US gallbladder DATE OF EXAM: 04/17/2019 COMPARISON: CT, NM CLINICAL HISTORY: ruq pain. RUQ pain x 5 days. Nausea. Gastric sleeve surgery October 2017. EXAM MEASUREMENTS: Liver Length: 16.6 cm Gallbladder Wall: 0.35 cm CBD: 0.59 cm Right Kidney: 11.8 x 6.4 x 5.3 cm Limited due to body habitus and overlying bowel gas. Pancreas: Limited. Liver: Limited due to gas. Gallbladder: Multiple hyperechoic foci with posterior shadowing seen in the posterior gallbladder. W all measures 0.35 cm. Evidence for sonographic Pritchett's sign: Yes CBD: Appears to be wnl Right Kidney: Anechoic area seen laterally measurin.0 x 2.1 x 2.7 cm. IMPRESSION: Multiple gallstones. No dilated ducts. No focal liver defect. 3 cm right renal cortical c ysts.
[2019-04-17 22:37] VITALS: BP 122/74; PULSE 59; TEMP 98.2
== END 2019-04-17 22:37 | disposition home or self-care (01) ==
LOC: EC 19:32
DX: K80.20 Calculus of gallbladder without cholecystitis without obstruction (principal); R74.8 Abnormal levels of other serum enzymes; Z87.19 Personal history of other diseases of the digestive system; Z98.84 Bariatric surgery status
CPT/HCPCS: 36415; 93005; 80053; 83690; 85025; 81001; 76705; 99284; 96374; 96361 ×2; J1170

== ENCOUNTER 2019-04-24 20:14 | Emergency (ER) | payer BC ==
[2019-04-24] MEDS ORDERED: HYDROmorphone 1 MG/ML 1 ML SYRINGE IVP STA ×2 (20:52→23:03)
[2019-04-24] MEDS ORDERED: SODIUM CHLORIDE 0.9% 1,000 ML IV STA (20:52)
[2019-04-24] MEDS ORDERED: ONDANSETRON 4 MG/2 ML VIAL IVP STA (20:52)
[2019-04-24 21:37] LABS: Appearance,Urine Clear (Clear); Bilirubin,Urine Negative (Negative); Blood,Urine Negative (Negative); Color,Urine Light Yellow; Glucose,Urine (UA) Negative (Negative); Ketones,Urine Trace (Negative); Leukocyte Esterase,Urine Negative (Negative); Nitrite,Urine Negative (Negative); PH, Urine 7.5 (5.0-8.0); Protein,Urine Negative (Negative); Specific Gravity,Urine 1.014 (1.001-1.035); Urobilinogen,Urine <2.0 mg/dL (<2.0)
[2019-04-24 21:39] LABS: Basophils # (A) 0.1 k/uL (0-0.2); Basophils % (A) 0 %; Eosinophils # (A) 0.1 k/uL (0-0.7); Eosinophils % (A) 1 %; HCT 42.9 % (39.0-53.0); Lymphocytes # (A) 1.3 k/uL (1.0-4.8); Lymphocytes % (A) 8 %; MCH 30.5 pg (25.0-35.0); MCHC 32.6 g/dL (31.0-37.0); MCV 93.8 fL (80.0-100.0); Mean Platelet Volume 6.3; Monocytes # (A) 0.9 k/uL (0-1.0); Monocytes % (A) 6 %; Neutrophils # (A) 14.3 k/uL (1.3-7.7); Neutrophils % (A) 85 %; Platelet Count 263 k/uL (150-450); RBC 4.58 m/uL (4.30-5.90); RDW 11.9 % (11.5-15.5); WBC 16.9 k/uL (3.8-10.6)
[2019-04-24 21:45] LABS: INR 0.9 (<1.2); Partial Thromboplastin Time 25.6 sec (22.0-30.0); Prothrombin Time 10.2 sec (9.0-12.0)
[2019-04-24 21:48] LABS: ALT 70 U/L (4-49); AST 46 U/L (17-59); African American GFR (CKD) >90 (>60 ml/min/1.73 sqM); Albumin 4.1 g/dL (3.5-5.0); Alkaline Phosphatase 88 U/L (38-126); Amylase 54 U/L (30-110); Anion Gap 7 mmol/L; Blood Urea Nitrogen 11 mg/dL (9-20); Calcium 8.9 mg/dL (8.4-10.2); Carbon Dioxide 30 mmol/L (22-30); Chloride 101 mmol/L (98-107); Glucose 116 mg/dL (74-99); Non-African American GFR(CKD) >90 (>60 ml/min/1.73 sqM); Potassium 3.9 mmol/L (3.5-5.1); Sodium 138 mmol/L (137-145); Total Bilirubin 0.3 mg/dL (0.2-1.3); Total Protein 6.9 g/dL (6.3-8.2)
--- NOTE | 2019-04-24 22:57 | ED ---
Abdominal Pain HPI - General Chief Complaint: Abdominal Pain Stated Complaint: Gallstones Time Seen by Provider: 04/24/19 20:26 Source: patient Mode of arrival: ambulatory - History of Present Illness Initial Comments: 43-year-old male patient presents to the emergency department today for evaluation of abdominal pain and nausea. Patient is reporting pain to the right upper quadrant radiating through to his back and up into his right shoulder. Patient states that symptoms started around 5 PM. He did have deep-fried tacos to eat prior to onset of symptoms. Does report nausea but no vomiting. Patient states he has been having similar type symptoms repeatedly over the last week or 2. States he has been evaluated here was diagnosed with gallstones. He does have a cholecystectomy scheduled for 05/05/[address] Reddy. He denies fever or chills. Denies any hematochezia or melena. Denies hematemesis. Denies any other surgeries to his abdomen. Patient denies any recent rash, shortness breath, chest pain, numbness, tingling, dizziness, weakness, hematuria, dysuria, urinary urgency, urinary frequency, headache, visual changes, or any other complaints. - Related Data Home Medications Medication Instructions Recorded Confirmed Calcium Citrate 500 mg PO TID 12/19/17 02/03/19 Multivitamins, Thera [Multivitamin 1 tab PO DAILY 12/19/17 02/03/19 (formulary)] Cholecalciferol (Vitamin D3) 10,000 unit PO DAILY 05/13/18 02/03/19 [Vitamin D3] Ferrous Sulfate [Feosol] 325 mg PO DAILY 05/13/18 02/03/19 Iron 18 mg PO BID 08/07/18 02/03/19 Amoxicillin 500 mg PO Q8H 02/03/19 02/03/19 Previous Rx's Medication Instructions Recorded HYDROcodone/APAP 5-325MG [[place] 1 tab PO Q6HR PRN 3 Days #12 tab 04/17/19 5-325] Hydrocodone/Acetaminophen [[place] 1 tab PO Q6HR PRN #12 tab 04/25/19 5-325] Ondansetron [Zofran ODT] 4 mg PO Q8HR PRN #15 tab 04/25/19 Allergies Allergy/AdvReac Type Severity Reaction Status Date / Time No Known Allergies Allergy Verified 04/24/19 20:23 Review of Systems ROS Statement: Those systems with pertinent positive or pertinent negative responses have been documented in the HPI. ROS Other: All systems not noted in ROS Statement are negative. Past Medical History Past Medical History: No Reported History Additional Past Medical History / Comment(s): chronic esophagitis dx 03/20/17 by EGD (Dr. Reddy), states he has herniated discs between L1 and S1 (one of which is near deterioration) History of Any Multi-Drug Resistant Organisms: None Reported Past Surgical History: Bariatric Surgery, Ear Surgery Additional Past Surgical History / Comment(s): Ear tubes as a child, pain injections lower back ; vertical sleeve gastrectomy (11-21-17, Dr. Reddy) Past Anesthesia/Blood Transfusion Reactions: No Reported Reaction Additional Past Anesthesia/Blood Transfusion Reaction / Comment(s): Has never had general anesthesia, no problems noted with [place] anesthesia for EGD on 03-20-17 Past Psychological History: No Psychological Hx Reported Smoking Status: Never smoker Past Alcohol Use History: None Reported, Occasional Past Drug Use History: Marijuana - Past Family History Mother Family Medical History: Diabetes Mellitus Additional Family Medical History / Comment(s): DDD, Anusha en Y sx, open heart sx, heart valve replacement, DM, Multiple back sx, lung disorder originated from [place] and led to mold spores in lungs, smoker Father Family Medical History: No Reported History Additional Family Medical History / Comment(s): patient states father does not go to the doctor, has bad knees but that's about it. General Exam General appearance: alert, in no apparent distress, other (This is a well- developed, well-nourished adult male patient in no acute distress. Vital signs upon presentation are temperature 98.4F, pulse 61, respirations 22, blood pressure 138/86, pulse ox 98% on room air.) Eye exam: Present: normal appearance, PERRL, EOMI. Absent: scleral icterus, conjunctival injection, periorbital swelling ENT exam: Present: normal exam, normal oropharynx, mucous membranes moist Respiratory exam: Present: normal lung sounds bilaterally. Absent: respiratory distress, wheezes, rales, rhonchi, stridor Cardiovascular Exam: Present: regular rate, normal rhythm, normal heart sounds. Absent: systolic murmur, diastolic murmur, rubs, gallop, clicks GI/Abdominal exam: Present: soft, tenderness (Generalized abdominal tenderness), normal bowel sounds. Absent: distended, guarding, rebound, rigid Neurological exam: Present: alert, oriented X3, CN II-XII intact Psychiatric exam: Present: normal affect, normal mood Skin exam: Present: warm, dry, intact, normal color. Absent: rash Course Vital Signs 04/24/19 04/24/19 20:20 23:09 Temperature 98.4 F Pulse Rate 61 62 Respiratory 22 18 Rate Blood Pressure 138/86 135/89 O2 Sat by Pulse 98 98 Oximetry Medical Decision Making - Medical Decision Making 43-year-old male patient presents to the emergency department today for evaluation of right upper quadrant pain. Patient has known gallstones and is scheduled to have a cholecystectomy on 05/05/2019. Physical examination reveals upper abdominal tenderness. Vital signs are within normal ranges. Labs reviewed and did reveal elevated white blood cell count at 16,000, most likely reactive from pain. Ultrasound of the right upper quadrant was obtained and did show a distended gallbladder presence of gallstones. No signs of wall thickening or acute cholecystitis. We were able to manage his pain and nausea utilizing IV fluids and medications here. Discharged with [place] for pain control is instructed to follow-up with Dr. Saeed on Sunday. Return parameters discussed in detail. He verbalizes understanding and agrees with this plan. - Lab Data Result diagrams: 04/24/19 21:10 04/24/19 21:10 Lab Results 04/24/19 04/24/19 04/24/19 Range/Units 21:10 21:10 21:10 WBC 16.9 H (3.8-10.6) k/uL RBC 4.58 (4.30-5.90) m/uL Hgb 14.0 (13.0-17.5) gm/dL Hct 42.9 (39.0-53.0) % MCV 93.8 (80.0-100.0) fL MCH 30.5 (25.0-35.0) pg MCHC 32.6 (31.0-37.0) g/dL RDW 11.9 (11.5-15.5) % Plt Count 263 (150-450) k/uL Neutrophils % 85 % Lymphocytes % 8 % Monocytes % 6 % Eosinophils % 1 % Basophils % 0 % Neutrophils # 14.3 H (1.3-7.7) k/uL Lymphocytes # 1.3 (1.0-4.8) k/uL Monocytes # 0.9 (0-1.0) k/uL Eosinophils # 0.1 (0-0.7) k/uL Basophils # 0.1 (0-0.2) k/uL PT (9.0-12.0) sec INR (<1.2) APTT (22.0-30.0) sec Sodium 138 (137-145) mmol/L Potassium 3.9 (3.5-5.1) mmol/L Chloride 101 (98-107) mmol/L Carbon Dioxide 30 (22-30) mmol/L Anion Gap 7 mmol/L BUN 11 (9-20) mg/dL Creatinine 0.77 (0.66-1.25) mg/dL Est GFR (CKD-EPI)AfAm >90 (>60 ml/min/1.73 sqM) Est GFR (CKD-EPI)NonAf >90 (>60 ml/min/1.73 sqM) Glucose 116 H (74-99) mg/dL Plasma Lactic Acid Mois[place] 1.1 (0.7-2.0) mmol/L Calcium 8.9 (8.4-10.2) mg/dL Total Bilirubin 0.3 (0.2-1.3) mg/dL AST 46 (17-59) U/L ALT 70 H (4-49) U/L Alkaline Phosphatase 88 (38-126) U/L Total Protein 6.9 (6.3-8.2) g/dL Albumin 4.1 (3.5-5.0) g/dL Amylase 54 (30-110) U/L Lipase 37 (23-300) U/L Urine Color Urine Appearance (Clear) Urine pH (5.0-8.0) Ur Specific [place] (1.001-1.035) Urine Protein (Negative) Urine Glucose (UA) (Negative) Urine Ketones (Negative) Urine Blood (Negative) Urine Nitrite (Negative) Urine Bilirubin (Negative) Urine Urobilinogen (<2.0) mg/dL Ur Leukocyte Esterase (Negative) 04/24/19 04/24/19 Range/Units 21:10 21:10 WBC (3.8-10.6) k/uL RBC (4.30-5.90) m/uL Hgb (13.0-17.5) gm/dL Hct (39.0-53.0) % MCV (80.0-100.0) fL MCH (25.0-35.0) pg MCHC (31.0-37.0) g/dL RDW (11.5-15.5) % Plt Count (150-450) k/uL Neutrophils % % Lymphocytes % % Monocytes % % Eosinophils % % Basophils % % Neutrophils # (1.3-7.7) k/uL Lymphocytes # (1.0-4.8) k/uL Monocytes # (0-1.0) k/uL Eosinophils # (0-0.7) k/uL Basophils # (0-0.2) k/uL PT 10.2 (9.0-12.0) sec INR 0.9 (<1.2) APTT 25.6 (22.0-30.0) sec Sodium (137-145) mmol/L Potassium (3.5-5.1) mmol/L Chloride (98-107) mmol/L Carbon Dioxide (22-30) mmol/L Anion Gap mmol/L BUN (9-20) mg/dL Creatinine (0.66-1.25) mg/dL Est GFR (CKD-EPI)AfAm (>60 ml/min/1.73 sqM) Est GFR (CKD-EPI)NonAf (>60 ml/min/1.73 sqM) Glucose (74-99) mg/dL Plasma Lactic Acid Moisés (0.7-2.0) mmol/L Calcium (8.4-10.2) mg/dL Total Bilirubin (0.2-1.3) mg/dL AST (17-59) U/L ALT (4-49) U/L Alkaline Phosphatase (38-126) U/L Total Protein (6.3-8.2) g/dL Albumin (3.5-5.0) g/dL Amylase (30-110) U/L Lipase (23-300) U/L Urine Color Light Yellow Urine Appearance Clear (Clear) Urine pH 7.5 (5.0-8.0) Ur Specific [place] 1.014 (1.001-1.035) Urine Protein Negative (Negative) Urine Glucose (UA) Negative (Negative) Urine Ketones Trace H (Negative) Urine Blood Negative (Negative) Urine Nitrite Negative (Negative) Urine Bilirubin Negative (Negative) Urine Urobilinogen <2.0 (<2.0) mg/dL Ur Leukocyte Esterase Negative (Negative) - Radiology Data Radiology results: report reviewed Disposition Clinical Impression: Gallstones, Dysfunctional gallbladder Disposition: HOME SELF-CARE Condition: Good Instructions (If sedation given, give patient instructions): Gallstones (ED), Low Fat Diet (ED) Additional Instructions: Start with clear liquid diet and advance as tolerated. Avoid fatty foods. Take medications as directed. Follow-up with Dr. Saeed for recheck on Sunday. Return to the emergency department immediately for any new, worsening, or concerning symptoms. Prescriptions: Hydrocodone/Acetaminophen [[place] 5-325] 1 tab PO Q6HR PRN #12 tab PRN Reason: Pain Ondansetron [Zofran ODT] 4 mg PO Q8HR PRN #15 tab PRN Reason: Nausea Is patient prescribed a controlled substance at d/c from ED?: No Referrals: Israel Mayen DO [Primary Care Provider] - 1-2 days Rajesh Reddy MD [STAFF PHYSICIAN] - 1-2 days Time of Disposition: 00:25
[2019-04-24 23:10] VITALS: PULSE 62; RESP 18
--- NOTE | 2019-04-24 23:20 | US ---
EXAMINATION TYPE: US abdomen limited DATE OF EXAM: 04/24/2019 COMPARISON: US 2019 CLINICAL HISTORY: RUQ pain known gallstones. RUQ pain x 6 hours. Known gallstones. Hx gastric sleeve surgery October 2017. EXAM MEASUREMENTS: Liver Length: 16.9 cm Gallbladder Wall: 0.29 cm CBD: Limited visibility. Right Kidney: 11.8 x 5.3 x 5.6 cm *Limited due to gas and body habitus. Pancreas: Obscured by overlying bowel gas. Liver: Limited due to gas. Gallbladder: Multiple hyperechoic foci with posterior shadowing seen within the gallbladder as seen on previous ultrasound. Gallbladder measures 10.2 cm in length and 4.0 cm in width. Evidence for sonographic Pritchett's sign: Yes CBD: Limited. Right Kidney: Anechoic area seen laterally measurin.7 x 2.3 x 2.4 cm as seen on previous ultraso und. IMPRESSION: Numerous gallstones. No dilated ducts. Distended gallbladder consistent with gallbladder dysfunction.
[2019-04-25] MEDS ORDERED: ONDANSETRON 4 MG ODT STARTER PACK 2 TAB BTL PO STA (00:26)
[2019-04-25] MEDS ORDERED: ACET/COD 300 MG/30 MG STARTER PACK 6 TAB BTL PO STA (00:26)
[2019-04-25 00:37] VITALS: BP 113/76; TEMP 98
== END 2019-04-25 00:45 | disposition home or self-care (01) ==
LOC: EC 20:14
DX: K80.20 Calculus of gallbladder without cholecystitis without obstruction (principal); K82.8 Other specified diseases of gallbladder; Z98.84 Bariatric surgery status; Z90.49 Acquired absence of other specified parts of digestive tract
CPT/HCPCS: 36415; 80053; 82150; 83605; 83690; 85025; 85610; 85730; 81003; 76705; 99284; 96374; 96375; 96376; 96361 ×3; J2405; J1170; S0119

== ENCOUNTER 2019-04-28 13:01 | Inpatient (IN) | payer BC ==
[2019-04-28 15:01] LABS: Appearance,Urine Cloudy (Clear); Bilirubin,Urine 2+ (Negative); Blood,Urine Small (Negative); Color,Urine Dark Brown; Glucose,Urine (UA) Negative (Negative); Ketones,Urine 1+ (Negative); Leukocyte Esterase,Urine Trace (Negative); Mucus,Urine Many /hpf; Nitrite,Urine Negative (Negative); Protein,Urine 1+ (Negative); RBC,Urine 2 /hpf (0-5); Specific Gravity,Urine 1.028 (1.001-1.035); Squamous Epithelial Cell,Urine 2 /hpf (0-4); WBC,Urine 8 /hpf (0-5)
--- NOTE | 2019-04-28 15:44 | ED ---
General Adult HPI - General Chief complaint: Abdominal Pain Stated complaint: poss gallstones Time Seen by Provider: 04/28/19 14:25 Source: patient, family, RN notes reviewed Mode of arrival: ambulatory Limitations: no limitations - History of Present Illness Initial comments: Patient is a pleasant 43-year-old male presenting to the emergency Department with complaints of abdominal discomfort. Onset of symptoms was 4 days ago. Patient has been to the emergency department 3 times. Patient was diagnosed with gallstones. Patient had return visit also with gallstones. Patient states the past 2 days his skin has started turning yellowish discoloration. Patient states discomfort continues right upper quadrant however is not severe at this time. Discomfort is 3/10. Patient has had decreased appetite however is drinking fluids. - Related Data Home Medications Medication Instructions Recorded Confirmed Calcium Citrate 500 mg PO TID 12/19/17 04/25/19 Multivitamins, Thera [Multivitamin 1 tab PO DAILY 12/19/17 04/25/19 (formulary)] Cholecalciferol (Vitamin D3) 10,000 unit PO DAILY 05/13/18 04/25/19 [Vitamin D3] Iron 18 mg PO BID 08/07/18 04/25/19 Levaquin (Unk. Dose) 1 tab PO DAILY 04/25/19 04/25/19 Previous Rx's Medication Instructions Recorded HYDROcodone/APAP 5-325MG [[place] 1 tab PO Q6HR PRN 3 Days #12 tab 04/17/19 5-325] Ondansetron [Zofran ODT] 4 mg PO Q8HR PRN #15 tab 04/25/19 Allergies Allergy/AdvReac Type Severity Reaction Status Date / Time No Known Allergies Allergy Verified 04/28/19 14:26 Review of Systems ROS Statement: Those systems with pertinent positive or pertinent negative responses have been documented in the HPI. ROS Other: All systems not noted in ROS Statement are negative. Constitutional: Denies: fever Eyes: Denies: eye pain ENT: Denies: ear pain Respiratory: Denies: cough Cardiovascular: Denies: chest pain Endocrine: Denies: fatigue Gastrointestinal: Reports: as per HPI Genitourinary: Denies: dysuria Musculoskeletal: Denies: arthralgia Skin: Reports: rash Neurological: Denies: weakness Past Medical History Past Medical History: No Reported History Additional Past Medical History / Comment(s): chronic esophagitis dx 11/21/17 by EGD (Dr. Reddy), states he has herniated discs between L1 and S1 (one of which is near deterioration) History of Any Multi-Drug Resistant Organisms: None Reported Past Surgical History: Bariatric Surgery, Ear Surgery Additional Past Surgical History / Comment(s): Ear tubes as a child, pain injections lower back ; vertical sleeve gastrectomy (11-21-17, Dr. Reddy) Past Anesthesia/Blood Transfusion Reactions: No Reported Reaction Additional Past Anesthesia/Blood Transfusion Reaction / Comment(s): Has never had general anesthesia, no problems noted with [place] anesthesia for EGD on 03-20-17 Past Psychological History: No Psychological Hx Reported Past Alcohol Use History: None Reported, Occasional - Past Family History Mother Family Medical History: Diabetes Mellitus Additional Family Medical History / Comment(s): DDD, Anusha en Y sx, open heart sx, heart valve replacement, DM, Multiple back sx, lung disorder originated from [place] and led to mold spores in lungs, smoker Father Family Medical History: No Reported History Additional Family Medical History / Comment(s): patient states father does not go to the doctor, has bad knees but that's about it. General Exam Limitations: no limitations General appearance: alert, in no apparent distress Head exam: Present: normocephalic Eye exam: Present: scleral icterus ENT exam: Present: normal oropharynx Neck exam: Present: normal inspection Respiratory exam: Present: normal lung sounds bilaterally Cardiovascular Exam: Present: regular rate, normal rhythm Expanded Peripheral pulses: 2+: Dorsalis Pedis (R), Dorsalis Pedis (L) GI/Abdominal exam: Present: soft, tenderness (Mild right upper quadrant tenderness), normal bowel sounds. Absent: distended, guarding, rebound, rigid, pulsatile mass Extremities exam: Present: normal inspection. Absent: pedal edema, calf tenderness Neurological exam: Present: alert Psychiatric exam: Present: normal affect, normal mood Skin exam: Present: other (Mild jaundiced appearance) Course Vital Signs 04/28/19 04/28/19 14:23 15:52 Temperature 98.6 F 98.5 F Pulse Rate 70 Respiratory 18 16 Rate Blood Pressure 124/69 107/77 O2 Sat by Pulse 98 Oximetry Medical Decision Making - Medical Decision Making Patient reevaluated and updated. Case discussed in detail with Dr. Cota who recommends medical admission and he will consult. He also requests GI consult. He did review recent ultrasound and states repeat is not needed unless ordered by GI. Case also discussed with practitioner Yvette Natarajan, covering with Dr. Toledo, who will admit covered for Dr. Mayen. - Lab Data Result diagrams: 04/28/19 15:52 04/28/19 15:52 Lab Results 04/28/19 04/28/19 04/28/19 Range/Units 14:32 15:52 15:52 WBC 7.0 (3.8-10.6) k/uL RBC 4.69 (4.30-5.90) m/uL Hgb 14.4 (13.0-17.5) gm/dL Hct 43.5 (39.0-53.0) % MCV 92.9 (80.0-100.0) fL MCH 30.7 (25.0-35.0) pg MCHC 33.0 (31.0-37.0) g/dL RDW 12.0 (11.5-15.5) % Plt Count 266 (150-450) k/uL Neutrophils % 68 % Lymphocytes % 16 % Monocytes % 10 % Eosinophils % 3 % Basophils % 0 % Neutrophils # 4.8 (1.3-7.7) k/uL Lymphocytes # 1.1 (1.0-4.8) k/uL Monocytes # 0.7 (0-1.0) k/uL Eosinophils # 0.2 (0-0.7) k/uL Basophils # 0.0 (0-0.2) k/uL PT (9.0-12.0) sec INR (<1.2) APTT (22.0-30.0) sec Sodium 142 (137-145) mmol/L Potassium 3.6 (3.5-5.1) mmol/L Chloride 100 (98-107) mmol/L Carbon Dioxide 28 (22-30) mmol/L Anion Gap 14 mmol/L BUN 15 (9-20) mg/dL Creatinine 0.67 (0.66-1.25) mg/dL Est GFR (CKD-EPI)AfAm >90 (>60 ml/min/1.73 sqM) Est GFR (CKD-EPI)NonAf >90 (>60 ml/min/1.73 sqM) Glucose 86 (74-99) mg/dL Calcium 9.4 (8.4-10.2) mg/dL Total Bilirubin 4.4 H (0.2-1.3) mg/dL AST 56 (17-59) U/L ALT 147 H (4-49) U/L Alkaline Phosphatase 198 H (38-126) U/L Total Protein 8.0 (6.3-8.2) g/dL Albumin 4.3 (3.5-5.0) g/dL Amylase 46 (30-110) U/L Lipase 45 (23-300) U/L Urine Color Dark Brown Urine Appearance Cloudy (Clear) Urine pH 6.0 (5.0-8.0) Ur Specific [place] 1.028 (1.001-1.035) Urine Protein 1+ H (Negative) Urine Glucose (UA) Negative (Negative) Urine Ketones 1+ H (Negative) Urine Blood Small H (Negative) Urine Nitrite Negative (Negative) Urine Bilirubin 2+ H (Negative) Urine Urobilinogen 4.0 (<2.0) mg/dL Ur Leukocyte Esterase Trace H (Negative) Urine RBC 2 (0-5) /hpf Urine WBC 8 H (0-5) /hpf Ur Squamous Epith Cells 2 (0-4) /hpf Urine Mucus Many H (None) /hpf 04/28/19 Range/Units 15:52 WBC (3.8-10.6) k/uL RBC (4.30-5.90) m/uL Hgb (13.0-17.5) gm/dL Hct (39.0-53.0) % MCV (80.0-100.0) fL MCH (25.0-35.0) pg MCHC (31.0-37.0) g/dL RDW (11.5-15.5) % Plt Count (150-450) k/uL Neutrophils % % Lymphocytes % % Monocytes % % Eosinophils % % Basophils % % Neutrophils # (1.3-7.7) k/uL Lymphocytes # (1.0-4.8) k/uL Monocytes # (0-1.0) k/uL Eosinophils # (0-0.7) k/uL Basophils # (0-0.2) k/uL PT 10.3 (9.0-12.0) sec INR 1.0 (<1.2) APTT 25.2 (22.0-30.0) sec Sodium (137-145) mmol/L Potassium (3.5-5.1) mmol/L Chloride (98-107) mmol/L Carbon Dioxide (22-30) mmol/L Anion Gap mmol/L BUN (9-20) mg/dL Creatinine (0.66-1.25) mg/dL Est GFR (CKD-EPI)AfAm (>60 ml/min/1.73 sqM) Est GFR (CKD-EPI)NonAf (>60 ml/min/1.73 sqM) Glucose (74-99) mg/dL Calcium (8.4-10.2) mg/dL Total Bilirubin (0.2-1.3) mg/dL AST (17-59) U/L ALT (4-49) U/L Alkaline Phosphatase (38-126) U/L Total Protein (6.3-8.2) g/dL Albumin (3.5-5.0) g/dL Amylase (30-110) U/L Lipase (23-300) U/L Urine Color Urine Appearance (Clear) Urine pH (5.0-8.0) Ur Specific [place] (1.001-1.035) Urine Protein (Negative) Urine Glucose (UA) (Negative) Urine Ketones (Negative) Urine Blood (Negative) Urine Nitrite (Negative) Urine Bilirubin (Negative) Urine Urobilinogen (<2.0) mg/dL Ur Leukocyte Esterase (Negative) Urine RBC (0-5) /hpf Urine WBC (0-5) /hpf Ur Squamous Epith Cells (0-4) /hpf Urine Mucus (None) /hpf Disposition Clinical Impression: Gallstone, Abdominal pain, Jaundice Disposition: ADMITTED IP TO THIS HOSP Is patient prescribed a controlled substance at d/c from ED?: No Referrals: Israel Mayen DO [Primary Care Provider] - 1-2 days Decision Time: 16:53
[2019-04-28 16:01] LABS: Basophils % (A) 0 %; Eosinophils # (A) 0.2 k/uL (0-0.7); Eosinophils % (A) 3 %; HCT 43.5 % (39.0-53.0); HGB 14.4 gm/dL (13.0-17.5); Lymphocytes # (A) 1.1 k/uL (1.0-4.8); Lymphocytes % (A) 16 %; MCH 30.7 pg (25.0-35.0); MCV 92.9 fL (80.0-100.0); Mean Platelet Volume 6.6; Monocytes # (A) 0.7 k/uL (0-1.0); Monocytes % (A) 10 %; Neutrophils # (A) 4.8 k/uL (1.3-7.7); Neutrophils % (A) 68 %; Platelet Count 266 k/uL (150-450); RBC 4.69 m/uL (4.30-5.90)
[2019-04-28 16:18] LABS: ALT 147 U/L (4-49); AST 56 U/L (17-59); African American GFR (CKD) >90 (>60 ml/min/1.73 sqM); Albumin 4.3 g/dL (3.5-5.0); Alkaline Phosphatase 198 U/L (38-126); Amylase 46 U/L (30-110); Anion Gap 14 mmol/L; Blood Urea Nitrogen 15 mg/dL (9-20); Calcium 9.4 mg/dL (8.4-10.2); Carbon Dioxide 28 mmol/L (22-30); Chloride 100 mmol/L (98-107); Glucose 86 mg/dL (74-99); Non-African American GFR(CKD) >90 (>60 ml/min/1.73 sqM); Potassium 3.6 mmol/L (3.5-5.1); Sodium 142 mmol/L (137-145); Total Bilirubin 4.4 mg/dL (0.2-1.3)
--- NOTE | 2019-04-28 16:29 | XR ---
EXAMINATION TYPE: XR abdomen 1V DATE OF EXAM: 04/28/2019 4:25 PM CLINICAL HISTORY: Abdominal pain and jaundice TECHNIQUE: Two Upright KUB images of the abdomen are obtained. COMPARISON: CT 2017 FINDINGS: Surgical sutures upper gastric region. Scattered gas is seen in non-distended small bowel loops. Gas and fecal material is seen in non-distended colon. There is no visceromegaly, pneumoperitoneum, or ab normal calcification appreciated. The lung bases are clear and the osseous structures are intact. IMPRESSION: Overall nonobstructive bowel gas pattern.
[2019-04-28 16:45] LABS: Partial Thromboplastin Time 25.2 sec (22.0-30.0); Prothrombin Time 10.3 sec (9.0-12.0)
[2019-04-28] MEDS ORDERED: NALOXONE 0.4 MG/ML 1 ML VIAL IV PRN (16:53)
[2019-04-28] MEDS ORDERED: HYDROmorphone 0.5 MG/0.5 ML SYRINGE IVP PRN (16:53)
[2019-04-28] MEDS: SODIUM CHLORIDE 0.9% 1,000 ML IV SCH (17:16)
[2019-04-28] MEDS ORDERED: ONDANSETRON ODT 4 MG TAB PO PRN (18:35)
[2019-04-28] MEDS: PIPERACILLIN-TAZOBACTAM 3.375 GM in SODIUM CHLORIDE 0.9% 100 ML IVPB SCH (20:01)
--- NOTE | 2019-04-28 21:47 | HP ---
HISTORY AND PHYSICAL DATE OF SERVICE: 04/28/2019 CHIEF COMPLAINT: Abdominal pain as well as some chills. HISTORY OF PRESENT ILLNESS: This 43-year-old gentleman with a past medical history of multiple medical problems, including history of chronic esophagitis, EGD, bariatric surgery, being followed by Dr. Israel Mayen and Dr. Mayers in the outpatient setting, was complaining of multiple abdominal symptoms recently. The patient had multiple ER visits, and in the course of investigation, the patient was found to have numerous gallstones. The gallbladder was distended with gallbladder dysfunction also. Outpatient surgery is being planned on May 05 at this time; however, because of the patient's concern about increasing jaundice, the patient came to [facility] and was admitted for further evaluation and treatment. The bilirubin was elevated up to 4.4. AST, ALT, alkaline phosphatase were also elevated. The patient is also complaining of some rigors and chills as well as some night sweats. PAST MEDICAL HISTORY: 1. History of bariatric surgery. 2. History of ear surgery. 3. History of esophagitis. HOME MEDICATIONS: The home medications prior to admission included: 1. Multivitamins 1 p.o. daily. 2. Zofran p.r.n. 3. Levaquin 500 mg p.o. daily. 4. Iron. 5. [place] 5 mg q.6 p.r.n. 6. Vitamin D3. ALLERGIES: NONE. FAMILY HISTORY: History of diabetes mellitus in the family, Anusha-en-Y. SOCIAL HISTORY: No history of smoking. No history of alcohol intake. REVIEW OF SYSTEMS: ENT: No diminished hearing. No diminished vision. CARDIOVASCULAR SYSTEM: No angina, palpitations. RESPIRATORY SYSTEM: No cough, hemoptysis. GI: No nausea, vomiting. : No dysuria or retention. NERVOUS SYSTEM: No numbness, weakness. ALLERGY/IMMUNOLOGY: No asthma, hayfever. MUSCULOSKELETAL: As mentioned earlier. HEMATOLOGY/ONCOLOGY: No history of anemia. ENDOCRINE: No history of diabetes. CONSTITUTIONAL: As mentioned earlier. DERMATOLOGY: Negative. RHEUMATOLOGY: Negative. PSYCHIATRY: As mentioned earlier. PHYSICAL EXAMINATION: Patient alert and oriented x3. Pulse is 70, blood pressure 124/69, respiration 18, temperature 98.6, pulse ox 98% on room air. HEENT: Conjunctivae normal. Oral mucosa moist. Minimal scleral icterus present. NECK: No jugular venous distention. No carotid bruit. No lymph node enlargement. CARDIOVASCULAR SYSTEM: S1, S2 muffled. RESPIRATORY SYSTEM: Breath sounds diminished at the bases. No rhonchi. No crackles. ABDOMEN: Soft. Mild diffuse discomfort, especially in the right upper quadrant present. Otherwise no guarding. No rigidity. No mass palpable. LEGS: No edema. No swelling. NERVOUS SYSTEM: Higher functions as mentioned earlier. Moves all 4 limbs. No focal motor or sensory deficit. LYMPHATICS: No lymph node palpable in neck, axillae or groin. SKIN: No ulcer, rash, bleeding. JOINTS: No active deforming arthropathy. LABS: CBC within normal limits. INR is 1. Sodium 142, potassium 3.6. Bilirubin is 4.4. ALT is 147, alkaline phosphatase 198. ASSESSMENT: 1. Acute cholelithiasis and gallbladder dysfunction with possible cholecystitis versus cholangitis. 2. Continued symptomatology with failure of outpatient treatment. 3. History of bariatric surgery. 4. History of chronic esophagitis. 5. History of herniated disc, L1, S1. 6. History of ear surgery. 7. History of tetrahydrocannabinol. RECOMMENDATIONS AND DISCUSSION: In this 43-year-old gentleman who presented with multiple complex medical issues, we will monitor the patient closely, continue the current medications, continue symptomatic treatment. Will initiate gastroenterology as well as surgical consultations. I would also recommend symptomatic treatment. I also recommend empiric antibiotics. Obtain cultures. Prognosis guarded because of multiple complex medical issues. Further recommendations to follow. A copy of this dictation is being forwarded to Dr. Mayen, who is the primary physician. MMODL / IJN: [id number] /
[2019-04-28] MEDS: HEPARIN SODIUM,PORCINE 5,000 UNIT/ML 1 ML VIAL SQ SCH (22:13)
[2019-04-28] MEDS: HYDROmorphone 1 MG/ML 1 ML SYRINGE IVP PRN (22:13)
[2019-04-29] MEDS: SODIUM CHLORIDE 0.9% 1,000 ML IV SCH ×3 (00:01→18:30)
[2019-04-29] MEDS: PIPERACILLIN-TAZOBACTAM 3.375 GM in SODIUM CHLORIDE 0.9% 100 ML IVPB SCH ×3 (01:13→18:29)
[2019-04-29 06:59] LABS: Basophils # (A) 0.1 k/uL (0-0.2); Basophils % (A) 1 %; Eosinophils # (A) 0.3 k/uL (0-0.7); Eosinophils % (A) 3 %; HCT 38.5 % (39.0-53.0); HGB 12.4 gm/dL (13.0-17.5); Lymphocytes # (A) 1.3 k/uL (1.0-4.8); Lymphocytes % (A) 17 %; MCH 30.5 pg (25.0-35.0); MCHC 32.2 g/dL (31.0-37.0); MCV 94.6 fL (80.0-100.0); Mean Platelet Volume 6.5; Monocytes # (A) 0.8 k/uL (0-1.0); Monocytes % (A) 10 %; Neutrophils # (A) 5.2 k/uL (1.3-7.7); Neutrophils % (A) 66 %; Platelet Count 234 k/uL (150-450); RBC 4.08 m/uL (4.30-5.90); RDW 12.1 % (11.5-15.5); WBC 7.9 k/uL (3.8-10.6)
[2019-04-29 07:16] LABS: ALT 101 U/L (4-49); AST 46 U/L (17-59); African American GFR (CKD) >90 (>60 ml/min/1.73 sqM); Albumin 3.1 g/dL (3.5-5.0); Alkaline Phosphatase 138 U/L (38-126); Amylase 38 U/L (30-110); Anion Gap 9 mmol/L; Blood Urea Nitrogen 16 mg/dL (9-20); Calcium 8.8 mg/dL (8.4-10.2); Carbon Dioxide 28 mmol/L (22-30); Chloride 105 mmol/L (98-107); Glucose 76 mg/dL (74-99); Non-African American GFR(CKD) >90 (>60 ml/min/1.73 sqM); Potassium 4.7 mmol/L (3.5-5.1); Sodium 142 mmol/L (137-145); Total Bilirubin 3.9 mg/dL (0.2-1.3); Total Protein 6.2 g/dL (6.3-8.2)
[2019-04-29] MEDS: HEPARIN SODIUM,PORCINE 5,000 UNIT/ML 1 ML VIAL SQ SCH ×2 (12:00→19:47)
[2019-04-29] MEDS: MULTIVITAMINS, THERA 1 EACH TAB PO SCH (12:01)
[2019-04-29] MEDS: PANTOPRAZOLE 40 MG/10 ML VIAL IV SCH (13:02)
--- NOTE | 2019-04-29 13:54 | P.GSCN ---
<Elaine Gauthier A - Last Filed: 04/29/19 13:51> History of Present Illness Consult date: 04/29/19 Reason for Consult: gallstones Requesting physician: Nimesh De Luna History of present illness: CHIEF COMPLAINT: abdominal pain HISTORY OF PRESENT ILLNESS: 43-year-old male who presented to emergency room w ith chief complaint of abdominal pain. This is the patients 4th visit to the ER in March for pain. He had an US completed during a previous visit revealing gallstones. He is scheduled for lap han with Dr. Mayers on 05/05/2019. Patient reports jaundice of the skin since Sunday which prompted his visit to the ER today. He reports intermittent right upper quadrant abdominal pain since the of this month. Reports chills at home. PAST MEDICAL HISTORY: See list. PAST SURGICAL HISTORY: See list. MEDICATIONS: See list. ALLERGIES: See list. SOCIAL HISTORY: No illicit drug use. REVIEW OF SYSTEMS: CONSTITUTIONAL: Reports chills at home. HEENT: Denies blurred vision, vision changes, or eye pain. Denies hemoptysis ENDOCRINE: Denies heat or cold intolerance. CARDIOVASCULAR: Denies chest pain or pressure. RESPIRATORY: No shortness of breath. GASTROINTESTINAL: See HPI for pertinent findings. NEURO: Denies history of seizures. PSYCH: No depression or suicidal ideation HEMATOLOGIC: Denies bleeding disorders. LYMPHATIC: The patient denies any lumps and bumps around the neck. GENITOURINARY: Denies any blood in urine or increased urinary frequency. Re ports dark urine. MUSCULOSKELETAL: Denies myalgias. Denies joint swelling. Denies decreased range of motion beyond patients baseline. SKIN: Reports jaundice. Denies pruitis. Denies rash. PHYSICAL EXAM: VITAL SIGNS: Reviewed GENERAL: Well-developed in no acute distress. HEENT: Sclera icterus. Extraocular movements grossly intact. Moist buccal mucosa. Head is atraumatic, normocephalic. Hears conversational speech. No nasal drainage. NECK: Supple without lymphadenopathy. CHEST: Non-labored respirations and equal bilateral excursions. CARDIOVASCULAR: Regular rate with regular rhythm. Palpable 2+ radial pulses. ABDOMEN: Soft. Nondistended. Tenderness upon palpation of right upper quadrant. MUSCULOSKELETAL: No clubbing, cyanosis or edema. NEUROLOGIC: No focal or lateralizing signs. Cranial nerves II through XII grossly intact. PSYCH: Appropriate affect. Alert and oriented to person, place and time. SKIN: Jaundice. Well perfused. Good skin turgor. LABORATORY DATA: Laboratory data upon admission reveals white count 7.0. Hemoglobin 14.4. Bilirubin 4.4. AST 56. ALT 147. IMAGIN. Abdominal x-ray: Nonobstructive bowel gas pattern 2. Abdominal ultrasound performed on 04/24/2018 reveals numerous gallstones. No dilated ducts. Distended gallbladder consistent with gallbladder dysfunction. ASSESSMENT: 1. Abdominal pain 2. Cholelithiasis, possible choledocholithiasis 3. Distended gallbladder consistent with gallbladder dysfunction per ultrasound 4. Hyperbilirubinemia 5. Mild transaminitis 6. History of gastric sleeve PLAN: -Clear liquid diet -GI on consult. Await evaluation -Monitor labs -Patient tentatively scheduled for laparoscopic cholecystectomy with Dr. Mayers on 05/05/2019. Dr. Montgomery spoke with patient regarding timing of lap han. Will attempt to hold off until Dr. Mayers is available for surgery. However, if patient requires cholecystectomy sooner, Dr. Montgomery will be available to perform. Nurse practitioner note has been reviewed by physician. Signing provider agrees with the documented findings, assessment, and plan of care. Past Medical History Past Medical History: No Reported History Additional Past Medical History / Comment(s): chronic esophagitis dx 03/20/17 by EGD (Dr. 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 Mayers) Past Anesthesia/Blood Transfusion Reactions: No Reported Reaction Additional Past Anesthesia/Blood Transfusion Reaction / Comm: Has never had general anesthesia, no problems noted with [place] anesthesia for EGD on 03-20-17 Past Psychological History: No Psychological Hx Reported Smoking Status: Never smoker Past Alcohol Use History: None Reported, Occasional Past Drug Use History: Marijuana Additional Drug Use History / Comment(s): occasional marijuana for back pain - Past Family History Mother Family Medical History: Diabetes Mellitus Additional Family Medical History / Comment(s): DDD, Anusha en Y sx, open heart sx, heart valve replacement, DM, Multiple back sx, lung disorder originated from [place] and led to mold spores in lungs, smoker Father Family Medical History: No Reported History Additional Family Medical History / Comment(s): patient states father does not go to the doctor, has bad knees but that's about it. Medications and Allergies Home Medications Medication Instructions Recorded Confirmed Type Calcium Citrate 500 mg PO TID 12/19/17 04/28/19 History Multivitamins, Thera [Multivitamin 1 tab PO DAILY 12/19/17 04/28/19 History (formulary)] Cholecalciferol (Vitamin D3) 10,000 unit PO DAILY 05/13/18 04/28/19 History [Vitamin D3] Iron 18 mg PO BID 08/07/18 04/28/19 History HYDROcodone/APAP 5-325MG [[place] 1 tab PO Q6HR PRN 3 Days #12 tab 04/17/19 04/28/19 Rx 5-325] Ondansetron [Zofran ODT] 4 mg PO Q8HR PRN #15 tab 04/25/19 04/28/19 Rx Levofloxacin 500 mg PO DAILY 04/28/19 04/28/19 History Allergies Allergy/AdvReac Type Severity Reaction Status Date / Time No Known Allergies Allergy Verified 04/28/19 17:50 Surgical - Exam Vital Signs Temp Pulse Resp BP Pulse Ox 98.6 F 70 18 124/69 98 04/28/19 14:23 04/28/19 14:23 04/28/19 14:23 04/28/19 14:23 04/28/19 14:23 Results - Labs 04/29/19 05:58 04/29/19 05:58 Abnormal Lab Results - Last 24 Hours (Table) 04/28/19 04/28/19 04/29/19 Range/Units 14:32 15:52 05:58 RBC (4.30-5.90) m/uL Hgb (13.0-17.5) gm/dL Hct (39.0-53.0) % Total Bilirubin 4.4 H 3.9 H (0.2-1.3) mg/dL ALT 147 H 101 H (4-49) U/L Alkaline Phosphatase 198 H 138 H (38-126) U/L Total Protein 6.2 L (6.3-8.2) g/dL Albumin 3.1 L (3.5-5.0) g/dL Urine Protein 1+ H (Negative) Urine Ketones 1+ H (Negative) Urine Blood Small H (Negative) Urine Bilirubin 2+ H (Negative) Ur Leukocyte Esterase Trace H (Negative) Urine WBC 8 H (0-5) /hpf Urine Mucus Many H (None) /hpf 04/29/19 Range/Units 05:58 RBC 4.08 L (4.30-5.90) m/uL Hgb 12.4 L (13.0-17.5) gm/dL Hct 38.5 L (39.0-53.0) % Total Bilirubin (0.2-1.3) mg/dL ALT (4-49) U/L Alkaline Phosphatase (38-126) U/L Total Protein (6.3-8.2) g/dL Albumin (3.5-5.0) g/dL Urine Protein (Negative) Urine Ketones (Negative) Urine Blood (Negative) Urine Bilirubin (Negative) Ur Leukocyte Esterase (Negative) Urine WBC (0-5) /hpf Urine Mucus (None) /hpf Diabetes panel 04/28/19 04/29/19 Range/Units 15:52 05:58 Sodium 142 142 (137-145) mmol/L Potassium 3.6 4.7 (3.5-5.1) mmol/L Chloride 100 105 (98-107) mmol/L Carbon Dioxide 28 28 (22-30) mmol/L BUN 15 16 (9-20) mg/dL Creatinine 0.67 0.84 (0.66-1.25) mg/dL Glucose 86 76 (74-99) mg/dL Calcium 9.4 8.8 (8.4-10.2) mg/dL AST 56 46 (17-59) U/L ALT 147 H 101 H (4-49) U/L Alkaline Phosphatase 198 H 138 H (38-126) U/L Total Protein 8.0 6.2 L (6.3-8.2) g/dL Albumin 4.3 3.1 L (3.5-5.0) g/dL Calcium panel 04/28/19 04/29/19 Range/Units 15:52 05:58 Calcium 9.4 8.8 (8.4-10.2) mg/dL Albumin 4.3 3.1 L (3.5-5.0) g/dL Pituitary panel 04/28/19 04/29/19 Range/Units 15:52 05:58 Sodium 142 142 (137-145) mmol/L Potassium 3.6 4.7 (3.5-5.1) mmol/L Chloride 100 105 (98-107) mmol/L Carbon Dioxide 28 28 (22-30) mmol/L BUN 15 16 (9-20) mg/dL Creatinine 0.67 0.84 (0.66-1.25) mg/dL Glucose 86 76 (74-99) mg/dL Calcium 9.4 8.8 (8.4-10.2) mg/dL Adrenal panel 04/28/19 04/29/19 Range/Units 15:52 05:58 Sodium 142 142 (137-145) mmol/L Potassium 3.6 4.7 (3.5-5.1) mmol/L Chloride 100 105 (98-107) mmol/L Carbon Dioxide 28 28 (22-30) mmol/L BUN 15 16 (9-20) mg/dL Creatinine 0.67 0.84 (0.66-1.25) mg/dL Glucose 86 76 (74-99) mg/dL Calcium 9.4 8.8 (8.4-10.2) mg/dL Total Bilirubin 4.4 H 3.9 H (0.2-1.3) mg/dL AST 56 46 (17-59) U/L ALT 147 H 101 H (4-49) U/L Alkaline Phosphatase 198 H 138 H (38-126) U/L Total Protein 8.0 6.2 L (6.3-8.2) g/dL Albumin 4.3 3.1 L (3.5-5.0) g/dL <Denise Montgomery - Last Filed: 04/30/19 12:23> History of Present Illness History of present illness: He presents with symptomatic gallstones including new onset jaundice. LFTs including total bilirubin has been trending upward over the last 2 weeks. Recommend GI consultation for ERCP. Surgical - Exam Vital Signs Temp Pulse Resp BP Pulse Ox 98.6 F 70 18 124/69 98 04/28/19 14:23 04/28/19 14:23 04/28/19 14:23 04/28/19 14:23 04/28/19 14:23 Results - Labs 04/30/19 06:22 04/30/19 06:22 Abnormal Lab Results - Last 24 Hours (Table) 04/30/19 04/30/19 Range/Units 06:22 06:22 RBC 4.02 L (4.30-5.90) m/uL Hgb 12.5 L (13.0-17.5) gm/dL Hct 38.0 L (39.0-53.0) % Carbon Dioxide 31 H (22-30) mmol/L Total Bilirubin 5.7 H (0.2-1.3) mg/dL AST 117 H (17-59) U/L ALT 124 H (4-49) U/L Alkaline Phosphatase 162 H (38-126) U/L Total Protein 6.1 L (6.3-8.2) g/dL Albumin 3.1 L (3.5-5.0) g/dL Microbiology - Last 24 Hours (Table) 04/28/19 19:31 Blood Culture - Preliminary Blood No Growth after 24 hours Diabetes panel 04/30/19 Range/Units 06:22 Sodium 142 (137-145) mmol/L Potassium 4.1 (3.5-5.1) mmol/L Chloride 104 (98-107) mmol/L Carbon Dioxide 31 H (22-30) mmol/L BUN 10 (9-20) mg/dL Creatinine 0.79 (0.66-1.25) mg/dL Glucose 95 (74-99) mg/dL Calcium 8.8 (8.4-10.2) mg/dL AST 117 H (17-59) U/L ALT 124 H (4-49) U/L Alkaline Phosphatase 162 H (38-126) U/L Total Protein 6.1 L (6.3-8.2) g/dL Albumin 3.1 L (3.5-5.0) g/dL Calcium panel 04/30/19 Range/Units 06:22 Calcium 8.8 (8.4-10.2) mg/dL Albumin 3.1 L (3.5-5.0) g/dL Pituitary panel 04/30/19 Range/Units 06:22 Sodium 142 (137-145) mmol/L Potassium 4.1 (3.5-5.1) mmol/L Chloride 104 (98-107) mmol/L Carbon Dioxide 31 H (22-30) mmol/L BUN 10 (9-20) mg/dL Creatinine 0.79 (0.66-1.25) mg/dL Glucose 95 (74-99) mg/dL Calcium 8.8 (8.4-10.2) mg/dL Adrenal panel 04/30/19 Range/Units 06:22 Sodium 142 (137-145) mmol/L Potassium 4.1 (3.5-5.1) mmol/L Chloride 104 (98-107) mmol/L Carbon Dioxide 31 H (22-30) mmol/L BUN 10 (9-20) mg/dL Creatinine 0.79 (0.66-1.25) mg/dL Glucose 95 (74-99) mg/dL Calcium 8.8 (8.4-10.2) mg/dL Total Bilirubin 5.7 H (0.2-1.3) mg/dL AST 117 H (17-59) U/L ALT 124 H (4-49) U/L Alkaline Phosphatase 162 H (38-126) U/L Total Protein 6.1 L (6.3-8.2) g/dL Albumin 3.1 L (3.5-5.0) g/dL
[2019-04-29] MEDS: HYDROcodone/APAP 5-325MG 1 EACH TAB PO PRN (15:21)
--- NOTE | 2019-04-29 18:00 | PN ---
PROGRESS NOTE DATE OF SERVICE: 04/29/2019 This 43-year-old gentleman who was admitted with acute cholelithiasis and gallbladder dysfunction had possible cholecystitis and cholangitis. The patient is on broad- spectrum IV antibiotics. Cultures are pending. Abdominal x-ray has been done. Surgery is following the patient closely. Past medical history reviewed. REVIEW OF SYSTEMS: CARDIOVASCULAR SYSTEM: No angina, palpitations. RESPIRATORY SYSTEM: As mentioned earlier. GI: As mentioned earlier. : No dysuria or retention. NERVOUS SYSTEM: No numbness, weakness. CURRENT MEDICATIONS: Reviewed. They include: 1. [place] 5 mg q.6 p.r.n. 2. Heparin 5000 units subcutaneously b.i.d. 3. Dilaudid 1 mg q.3 p.r.n.; 0.5 mg q.3 p.r.n. 4. Multivitamins. 5. Narcan. 6. Zofran. 7. Protonix IV daily. 8. Zosyn 3.375 IV q.6. PHYSICAL EXAMINATION: Patient alert and oriented x3. Pulse is 57, blood pressure 131/76, respiration 18, temperature 97.6, pulse ox 98% on room air. HEENT: Conjunctivae icteric. NECK: No jugular venous distention. CARDIOVASCULAR SYSTEM: S1, S2 muffled. RESPIRATORY SYSTEM: Breath sounds diminished at the bases. ABDOMEN: Soft. Mild diffuse discomfort on the right. No mass palpable. No guarding. No rigidity. LEGS: No edema. No swelling. NERVOUS SYSTEM: No focal deficit. LABS: WBC 7.3, hemoglobin 12.4. The bilirubin is 3.9. ALT is 101, alkaline phosphatase 138. ASSESSMENT: 1. Acute cholelithiasis and gallbladder dysfunction with possible cholecystitis versus cholangitis. 2. Possible obstructive jaundice. 3. Continued symptomatology with failure of outpatient treatment. 4. History of bariatric surgery. 5. History of chronic esophagitis. 6. History of herniated disc, L1-S1. 7. History of ear surgery. 8. History of tetrahydrocannabinol. 9. Anemia, normocytic; anemia of chronic disease. RECOMMENDATIONS AND DISCUSSION: In this 43-year-old gentleman who presented with multiple complex medical issues, we will monitor the patient closely, continue the current medications, continue symptomatic treatment. Broad-spectrum IV antibiotics initiated. DVT prophylaxis. Incentive spirometry. Otherwise, I would recommend surgical consultation and continue to monitor. Gastroenterology also will be consulted for possible ERCP. Guarded prognosis because of multiple complex medical issues. Further recommendations to follow. Discussed with the patient. MMODL / IJN: [id number] /
--- NOTE | 2019-04-29 19:24 | P.HPIM ---
History of Present Illness H&P Date: 04/29/19 Chief Complaint: Yellowish discoloration Patient is a 43-year-old male with a known history of chronic esophagitis and is on follow with Dr. Whatley as an outpatient, herniated discs at L1 and S1, history of bariatric surgery/sleeve gastrectomy in 2018 came to ER with the co mplaints of abdominal discomfort intermittently for the past 2 weeks. Patient has been having worsening symptoms and presented to ER multiple times. Patient was diagnosed with gallstones and is scheduled for cholecystectomy on 05/05/2019. Patient says that his noticed that his skin is becoming yellow is also everything is looking yellow for him as well and also discoloration of the urine.. Patient came to ER denied any fever or chills. Denied any complains of chest pain or shortness of breath. No nausea vomiting or diarrhea. Patient has been having decreased appetite and nausea. Abdominal x-ray showed overall nonobstructive bowel gas pattern next and laboratory data showed bilirubin level IV.4 Potassium 3.6, BUN/creatinine 15 and creatinine 0.67 AST 56, ALT 147 and alk phos 188 Amylase 46 and lipase 45 Urinalysis showed dark brown 1+ protein 1+ ketones 2+ bilirubin and trace leukocyte esterase. Review of Systems Constitutional: Patient denies any fever or chills . generalized weakness and no weight loss. Abdomen: Patient denied nausea vomiting and diarrhea. Patient does have a right upper quadrant abdominal pain. Cardiovascular: Patient denies any chest pain or short of breath no palpitations. Respiratory: patient denied any cough is from production. No shortness of breath Neurologic: Patient denied any numbness or tingling headache. Musculoskeletal: Patient denies any complaints of joint swelling or deformity. Skin: Negative Psychiatric: Negative Endocrine: No heat or cold intolerance. No recent weight gain. Genitourinary: No dysuria or hematuria. All other 14 point ROS negative except the above Past Medical History Past Medical History: No Reported History Additional Past Medical History / Comment(s): chronic esophagitis dx 03/20/17 by EGD (Dr. Mayers), states he has herniated discs between L1 and S1 (one of which is near deterioration) History of Any Multi-Drug Resistant Organisms: None Reported Past Surgical History: Bariatric Surgery, Ear Surgery Additional Past Surgical History / Comment(s): Ear tubes as a child, pain injections lower back ; vertical sleeve gastrectomy (7-25-18, Dr. Mayers) Past Anesthesia/Blood Transfusion Reactions: No Reported Reaction Additional Past Anesthesia/Blood Transfusion Reaction / Comment(s): Has never had general anesthesia, no problems noted with [place] anesthesia for EGD on 03-20-17 Past Psychological History: No Psychological Hx Reported Smoking Status: Never smoker Past Alcohol Use History: None Reported, Occasional Past Drug Use History: Marijuana Additional Drug Use History / Comment(s): occasional marijuana for back pain - Past Family History Mother Family Medical History: Diabetes Mellitus Additional Family Medical History / Comment(s): DDD, Anusha en Y sx, open heart sx, heart valve replacement, DM, Multiple back sx, lung disorder originated from [place] and led to mold spores in lungs, smoker Father Family Medical History: No Reported History Additional Family Medical History / Comment(s): patient states father does not go to the doctor, has bad knees but that's about it. Medications and Allergies Home Medications Medication Instructions Recorded Confirmed Type Calcium Citrate 500 mg PO TID 12/19/17 04/28/19 History Multivitamins, Thera [Multivitamin 1 tab PO DAILY 12/19/17 04/28/19 History (formulary)] Cholecalciferol (Vitamin D3) 10,000 unit PO DAILY 05/13/18 04/28/19 History [Vitamin D3] Iron 18 mg PO BID 08/07/18 04/28/19 History HYDROcodone/APAP 5-325MG [[place] 1 tab PO Q6HR PRN 3 Days #12 tab 04/17/19 04/28/19 Rx 5-325] Ondansetron [Zofran ODT] 4 mg PO Q8HR PRN #15 tab 04/25/19 04/28/19 Rx Levofloxacin 500 mg PO DAILY 04/28/19 04/28/19 History Allergies Allergy/AdvReac Type Severity Reaction Status Date / Time No Known Allergies Allergy Verified 04/28/19 17:50 Physical Exam Vitals: Vital Signs Temp Pulse Pulse Resp BP BP Pulse Ox 04/28/19 23:00 98.2 F 82 16 112/70 04/28/19 20:00 16 04/28/19 19:49 16 111/69 04/28/19 15:52 98.5 F 16 107/77 04/28/19 14:23 98.6 F 70 18 124/69 98 Intake and Output 04/28/19 04/29/19 04/29/19 22:59 06:59 14:59 Intake Total 600 1300 Balance 600 1300 Intake: Intake, IV Titration 600 1300 Amount Piperacillin-Tazobactam 3 100 100 .375 gm In Sodium Chloride 0.9% 100 ml @ 25 mls/hr IVPB Q8HR [facility] Rx# :[id number] Sodium Chloride 0.9% 1, 500 1200 000 ml @ 125 mls/hr IV . Q8H [facility] Rx#:[id number] Other: # Voids 1 1 Weight 104.009 kg PHYSICAL EXAMINATION: Patient is lying in the bed comfortably, no acute distress, awake alert and oriented.. HEENT: Normocephalic. Neck is supple. Pupils reactive. Nostrils clear. Oral cavity is moist. Ears reveal no drainage. Neck reveals no JVD, carotid bruits, or thyromegaly. CHEST EXAMINATION: Trachea is central. Symmetrical expansion. Lung velazquez clear to auscultation and percussion. CARDIAC: Normal S1, S2 with no gallops. No murmurs ABDOMEN: Soft. Mild right upper quadrant tenderness. No guarding no rigidity. Bowel sounds normal. No organomegaly. No abdominal bruits. Extremities: reveal no edema. No clubbing or cyanosis Neurologically awake, alert, oriented x3 with well-coordinated movements. No focal deficits noted Skin: No rash or skin lesions. Psychiatric: Coperative. Nonsuicidal Musculoskeletal: No joint swelling or deformity. Normal range of motion. Results CBC & Chem 7: 04/29/19 05:58 04/29/19 05:58 Labs: Abnormal Lab Results - Last 24 Hours (Table) 04/28/19 04/28/19 04/29/19 Range/Units 14:32 15:52 05:58 RBC (4.30-5.90) m/uL Hgb (13.0-17.5) gm/dL Hct (39.0-53.0) % Total Bilirubin 4.4 H 3.9 H (0.2-1.3) mg/dL ALT 147 H 101 H (4-49) U/L Alkaline Phosphatase 198 H 138 H (38-126) U/L Total Protein 6.2 L (6.3-8.2) g/dL Albumin 3.1 L (3.5-5.0) g/dL Urine Protein 1+ H (Negative) Urine Ketones 1+ H (Negative) Urine Blood Small H (Negative) Urine Bilirubin 2+ H (Negative) Ur Leukocyte Esterase Trace H (Negative) Urine WBC 8 H (0-5) /hpf Urine Mucus Many H (None) /hpf 04/29/19 Range/Units 05:58 RBC 4.08 L (4.30-5.90) m/uL Hgb 12.4 L (13.0-17.5) gm/dL Hct 38.5 L (39.0-53.0) % Total Bilirubin (0.2-1.3) mg/dL ALT (4-49) U/L Alkaline Phosphatase (38-126) U/L Total Protein (6.3-8.2) g/dL Albumin (3.5-5.0) g/dL Urine Protein (Negative) Urine Ketones (Negative) Urine Blood (Negative) Urine Bilirubin (Negative) Ur Leukocyte Esterase (Negative) Urine WBC (0-5) /hpf Urine Mucus (None) /hpf Thrombosis Risk Factor Assmnt - DVT/VTE Prophylaxis DVT/VTE Prophylaxis: Pharmacologic Prophylaxis ordered - Choose All That Apply Any of the Below Risk Factors Present?: Yes Each Factor Represents 1 point: Age 41-60 years, Minor surgery planned Thrombosis Risk Factor Assessment Total Risk Factor Score: 2 Thrombosis Risk Factor Assessment Level: Low Risk Assessment and Plan Assessment: Abdominal pain likely secondary to choledocholithiasis and cholelithiasis Hyperbilirubinemia Gallstones history and scheduled for cholecystectomy on 05/05/2019 Transaminitis history of gastric sleeve surgery in 2018 Chronic esophagitis History of herniated disc L1 level DVT prophylaxis Plan: Patient will be continued on IV hydration and pain management. Monitor liver enzymes. Patient does not have any leukocytosis or fever. Gastroenterology and Gen. surgery was consulted. Planning for ERCP tomorrow. Further recommendations based on the clinical course. Follow up closely. Time with Patient: Greater than 30
--- NOTE | 2019-04-29 19:35 | P.PN ---
Subjective Progress Note Date: 04/29/19 Principal diagnosis: Choledocholithiasis Attempted to see patient but he was out of the room. Full consult to follow tomorrow. Patient seen by Gastroenterology [employer] DIRECTOR Maine Paulino. Plan is for ERCP tomorrow for choledocholithiasis. Objective - Vital Signs Vital signs: Vital Signs Temp 97.6 F 04/29/19 12:40 Pulse 58 L 04/29/19 16:00 Resp 18 04/29/19 16:00 BP 131/76 04/29/19 15:17 Pulse Ox 98 04/29/19 15:17 Intake & Output 04/29/19 04/29/19 04/30/19 06:59 18:59 06:59 Intake Total 1900 0 Balance 1900 0 Intake: Intake, IV Titration 1900 Amount Piperacillin-Tazobactam 3 200 .375 gm In Sodium Chloride 0.9% 100 ml @ 25 mls/hr IVPB Q8HR [facility] Rx# :[id number] Sodium Chloride 0.9% 1, 1700 000 ml @ 125 mls/hr IV . Q8H [facility] Rx#:[id number] Oral 0 Other: Voiding Method Toilet # Voids 1 3 - Labs CBC & Chem 7: 04/29/19 05:58 04/29/19 05:58 Labs: Abnormal Lab Results - Last 24 Hours (Table) 04/29/19 04/29/19 Range/Units 05:58 05:58 RBC 4.08 L (4.30-5.90) m/uL Hgb 12.4 L (13.0-17.5) gm/dL Hct 38.5 L (39.0-53.0) % Total Bilirubin 3.9 H (0.2-1.3) mg/dL ALT 101 H (4-49) U/L Alkaline Phosphatase 138 H (38-126) U/L Total Protein 6.2 L (6.3-8.2) g/dL Albumin 3.1 L (3.5-5.0) g/dL
[2019-04-29] MEDS: HYDROmorphone 1 MG/ML 1 ML SYRINGE IVP PRN (20:51)
[2019-04-30] MEDS: PIPERACILLIN-TAZOBACTAM 3.375 GM in SODIUM CHLORIDE 0.9% 100 ML IVPB SCH ×4 (00:20→23:37)
[2019-04-30] MEDS: HYDROmorphone 1 MG/ML 1 ML SYRINGE IVP PRN ×4 (02:07→15:24)
[2019-04-30] MEDS ORDERED: ONDANSETRON 4 MG/2 ML VIAL IVP ONE (07:14)
[2019-04-30] MEDS ORDERED: METOCLOPRAMIDE 5 MG/ML 2 ML VIAL IVP PRN (07:14)
[2019-04-30] MEDS ORDERED: LIDOCAINE 1% 20 ML VIAL (10MG/ML) FOR IV START INTRADERMA PRN (07:14)
[2019-04-30] MEDS ORDERED: SCOPOLAMINE 1.5MG/72HR PATCH TRANSDERM ONE (07:14)
[2019-04-30] MEDS ORDERED: HYDROmorphone 0.5 MG/0.5 ML SYRINGE IVP PRN ×2 (07:14→12:53)
[2019-04-30] MEDS ORDERED: LACTATED RINGERS 1,000 ML IV SCH (07:15)
[2019-04-30 07:37] LABS: Basophils % (A) 0 %; Eosinophils # (A) 0.3 k/uL (0-0.7); Eosinophils % (A) 3 %; HGB 12.5 gm/dL (13.0-17.5); Lymphocytes # (A) 1.3 k/uL (1.0-4.8); Lymphocytes % (A) 14 %; MCHC 32.8 g/dL (31.0-37.0); MCV 94.6 fL (80.0-100.0); Mean Platelet Volume 6.7; Monocytes # (A) 0.7 k/uL (0-1.0); Monocytes % (A) 8 %; Neutrophils # (A) 6.6 k/uL (1.3-7.7); Neutrophils % (A) 72 %; Platelet Count 262 k/uL (150-450); RBC 4.02 m/uL (4.30-5.90); RDW 12.2 % (11.5-15.5); WBC 9.1 k/uL (3.8-10.6)
[2019-04-30 07:50] LABS: ALT 124 U/L (4-49); AST 117 U/L (17-59); African American GFR (CKD) >90 (>60 ml/min/1.73 sqM); Albumin 3.1 g/dL (3.5-5.0); Alkaline Phosphatase 162 U/L (38-126); Anion Gap 7 mmol/L; Blood Urea Nitrogen 10 mg/dL (9-20); Calcium 8.8 mg/dL (8.4-10.2); Carbon Dioxide 31 mmol/L (22-30); Chloride 104 mmol/L (98-107); Glucose 95 mg/dL (74-99); Non-African American GFR(CKD) >90 (>60 ml/min/1.73 sqM); Potassium 4.1 mmol/L (3.5-5.1); Sodium 142 mmol/L (137-145); Total Bilirubin 5.7 mg/dL (0.2-1.3); Total Protein 6.1 g/dL (6.3-8.2)
[2019-04-30] MEDS: MULTIVITAMINS, THERA 1 EACH TAB PO SCH (08:27)
[2019-04-30] MEDS: HEPARIN SODIUM,PORCINE 5,000 UNIT/ML 1 ML VIAL SQ SCH ×2 (08:27→20:13)
[2019-04-30] MEDS: SODIUM CHLORIDE 0.9% 1,000 ML IV SCH ×3 (08:48→15:24)
[2019-04-30] MEDS: PANTOPRAZOLE 40 MG/10 ML VIAL IV SCH (08:48)
[2019-04-30] MEDS ORDERED: IV FLUID CONTINUATION 800 ML IV ONE (12:30)
[2019-04-30] MEDS ORDERED: ONDANSETRON 4 MG/2 ML VIAL IVP PRN (12:53)
[2019-04-30] MEDS ORDERED: IOPAMIDOL-300 50ML BTL MISCELLANE ONE (12:57)
--- NOTE | 2019-04-30 13:51 | P.PCN ---
Date of Procedure: 04/30/19 Description of Procedure: Brief history: Patient is a 44-year-old male with a known history of esophagitis, prior bariatric surgery with sleeve gastrectomy in 2018 who is scheduled for outpatient cholecystectomy for symptomatic cholelithiasis who presented to the hospital due to yellowing of his eyes and skin. Patient was found to have a markedly elevated bilirubin and decision was made for ERCP. Procedure performed: ERCP with cholangiogram, sphincterotomy and balloon sweep of the bile duct for stone extraction Preoperative diagnoses: Choledocholithiasis, jaundice, elevated bilirubin IV sedation per anesthesia Estimated blood loss: Minimal. Procedure: After informed consent was obtained from the patient and after the risks benefits and complications including bleeding perforation and pancreatitis explained in detail the patient was brought into the endoscopy unit. The patient was placed in prone position and IV conscious sedation was administered by anesthesia under continuous monitoring. The Olympus side-viewing duodenoscope was then inserted into the mouth and esophagus intubated without any difficulty. The scope was gradually advanced into the stomach and duodenum. The major papilla was identified without any difficulty. The sphincterotome was used to cannulate the papilla and a wire was then passed into the common bile duct. Dye was injected with cholangiogram significant for a mildly dilated CBD. The millimeter sphincterotomy was then performed. The sphincterotome was then exchanged over the wire for an extractor balloon. Extractor balloon was passed through the common bile duct to the bifurcation and inflated to 8.5 mm with the duct swept serially until only bile flow was seen. The pancreatic duct was not injected or cannulated. The patient tolerated the procedure well. Impression: ERCP with cholangiogram, sphincterotomy and balloon sweep of the bile duct with stone extraction. Recommendations: The findings of this examination were discussed with the patient. Okay for liquids, advance as tolerated. Monitor CBC, CMP. Continue to monitor for signs or symptoms of pancreatitis. Okay to proceed with cholecystectomy.
[2019-04-30] MEDS: LACTATED RINGERS 1,000 ML IV SCH (15:23)
--- NOTE | 2019-04-30 15:46 | P.PN ---
Subjective Progress Note Date: 04/30/19 CHIEF COMPLAINT: Choledocholithiasis HISTORY OF PRESENT ILLNESS: The patient is a 43-year-old male admitted for symptomatic gallstones now presenting with jaundice and choledocholithiasis. History since the first sleeve gastrectomy over one year ago with weight loss over 140 pounds. He reports worsening abdominal pain over the last 2 weeks. He presents for jaundice. He completed his ERCP with sphincterotomy. No diffuse abdominal pain. He is frankly jaundiced. ROS: No reports of nausea and vomiting. No bowel movements. No fevers or chills. No new chest pain. No productive sputum PHYSICAL EXAM: VITAL SIGNS: Reviewed CONSTITUTIONAL: Well developed and in no acute distress. EYES: Conjuctivae with sclera icterus. Extraocular movements grossly intact. HEAD, EARS, NOSE, THROAT: Moist buccal mucosa. Head is atraumatic, normocephalic. Hears conversational speech. No nasal drainage. NECK: Supple. No thyroidomegaly. RESPIRATORY: Non-labored respirations and equal bilateral excursions. CARDIOVASCULAR: Palpable 2+ radial pulses. Regular rate. Regular rhythm. ABDOMEN: Soft. No peritonitis. MUSCULOSKELETAL: No gross deformity of the lower extremities noted. No clubbing. No cyanosis. SKIN: Good skin turgor. Well perfused. NEUROLOGIC: Cranial nerves I through XII grossly intact. No focal or lateralizing signs. PSYCH: Appropriate affect. Alert and oriented to person, place and time. CLINICAL LABS: White blood cell count normal. Total bilirubin elevated from 4. 4-5.4. LFTs elevated. REPORT: ERCP performed with sphincterotomy. No assess performed of the pancre atic duct. ASSESSMENT: 1. Choledocholithiasis 2. Symptomatic gallstones 3. Jaundice, worsening PLAN: 1. Agree with clear liquid diet today 2. Will need cholecystectomy during current hospitalization 3. Monitor lipase, LFTs for choledocholithiasis. 4. Disposition of at least 3 to 5 days for severity of choledocholithiasis Objective - Vital Signs Vital signs: Vital Signs Temp 97 F L 04/30/19 12:08 Pulse 55 L 04/30/19 12:08 Resp 17 04/30/19 12:08 BP 125/59 04/30/19 12:08 Pulse Ox 97 04/30/19 12:08 Intake & Output 04/29/19 04/30/19 04/30/19 18:59 06:59 18:59 Intake Total 0 1640 Balance 0 1640 Intake: Intake, IV Titration 1040 Amount Piperacillin-Tazobactam 3 200 .375 gm In Sodium Chloride 0.9% 100 ml @ 25 mls/hr IVPB Q8HR [facility] Rx# :[id number] Sodium Chloride 0.9% 1, 840 000 ml @ 70 mls/hr IV . [id number] [facility] Rx#:[id number] Oral 0 600 Other: Voiding Method Toilet Toilet Toilet # Voids 3 3 - Labs CBC & Chem 7: 04/30/19 06:22 04/30/19 06:22 Labs: Abnormal Lab Results - Last 24 Hours (Table) 04/30/19 04/30/19 Range/Units 06:22 06:22 RBC 4.02 L (4.30-5.90) m/uL Hgb 12.5 L (13.0-17.5) gm/dL Hct 38.0 L (39.0-53.0) % Carbon Dioxide 31 H (22-30) mmol/L Total Bilirubin 5.7 H (0.2-1.3) mg/dL AST 117 H (17-59) U/L ALT 124 H (4-49) U/L Alkaline Phosphatase 162 H (38-126) U/L Total Protein 6.1 L (6.3-8.2) g/dL Albumin 3.1 L (3.5-5.0) g/dL Microbiology - Last 24 Hours (Table) 04/28/19 19:31 Blood Culture - Preliminary Blood No Growth after 24 hours Assessment and Plan (1) Choledocholithiasis Current Visit: Yes Status: Acute Code(s): K80.50 - CALCULUS OF BILE DUCT W/O CHOLANGITIS OR CHOLECYST W/O OBST SNOMED Code(s): 357881220 (2) S/P laparoscopic sleeve gastrectomy Current Visit: Yes Status: Acute Code(s): Z98.84 - BARIATRIC SURGERY STATUS SNOMED Code(s): 087811591 (3) Gallstone Current Visit: Yes Status: Acute Code(s): K80.20 - CALCULUS OF GALLBLADDER W/O CHOLECYSTITIS W/O OBSTRUCTION SNOMED Code(s): 494132785 (4) Jaundice Current Visit: Yes Status: Acute Code(s): R17 - UNSPECIFIED JAUNDICE SNOMED Code(s): 09911763 (5) Gallstones Current Visit: No Status: Acute Code(s): K80.20 - CALCULUS OF GALLBLADDER W/O CHOLECYSTITIS W/O OBSTRUCTION SNOMED Code(s): 589563092
--- NOTE | 2019-04-30 22:00 | P.CONS ---
History of Present Illness - Reason for Consult Consult date: 04/30/19 Choledocholithiasis Requesting physician: Elaine Solo - Chief Complaint Abdominal pain - History of Present Illness 43-year-old female with a known history of esophagitis, herniated disc at L1 and S1 and prior sleeve gastrectomy presented to the ER for evaluation of abdominal pain. The patient reports intermittent episodes of pain occurring over the past 2 weeks. Patient has been diagnosed with cholelithiasis and is scheduled for a cholecystectomy on 05/05/2019. Patient also noted associated yellowing of the skin and darkening of his urine. He denies any fevers or chills. Zetia, vomiting, diarrhea or change in bowel habits. On presentation to the hospital patient was found to have an elevated bilirubin of 4.4, an alkaline phosphatase of 198, AST 56 date LC 147. Amylase and lipase were normal. Review of Systems REVIEW OF SYSTEMS: CONSTITUTIONAL: Denies any fevers, chills, weight change or fatigue. CARDIOVASCULAR: Denies any chest pain, palpitations high or low blood pressures RESPIRATORY: Denies any shortness of breath, hemoptysis or cough. GENITOURINARY: No dysuria or hematuria, but did notice darkening of his urine. MUSCULOSKELETAL: No weakness reported. SKIN: Denies any new rashes or lesions, or pallor but did notice jaundice PSYCHIATRIC: Denies any depression or anxiety. NEUROLOGY: Denies headache, denies any new focal deficits. EARS/NOSE/THROAT: No recent hearing change, congestion, nasal discharge or sore throat. EYES: No pain in eyes, discharge or change in vision. GASTROINTESTINAL: As per HPI. Past Medical History Past Medical History: No Reported History Additional Past Medical History / Comment(s): chronic esophagitis dx 03/20/17 by EGD (Dr. 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 Mayers) Past Anesthesia/Blood Transfusion Reactions: No Reported Reaction Additional Past Anesthesia/Blood Transfusion Reaction / Comm: Has never had general anesthesia, no problems noted with [place] anesthesia for EGD on 03-20-17 Past Psychological History: No Psychological Hx Reported Smoking Status: Never smoker Past Alcohol Use History: None Reported, Occasional Past Drug Use History: Marijuana Additional Drug Use History / Comment(s): occasional marijuana for back pain - Past Family History Mother Family Medical History: Diabetes Mellitus Additional Family Medical History / Comment(s): DDD, Anusha en Y sx, open heart sx, heart valve replacement, DM, Multiple back sx, lung disorder originated from pine and led to mold spores in lungs, smoker Father Family Medical History: No Reported History Additional Family Medical History / Comment(s): patient states father does not go to the doctor, has bad knees but that's about it. Medications and Allergies Home Medications Medication Instructions Recorded Confirmed Type Calcium Citrate 500 mg PO TID 12/19/17 04/28/19 History Multivitamins, Thera [Multivitamin 1 tab PO DAILY 12/19/17 04/28/19 History (formulary)] Cholecalciferol (Vitamin D3) 10,000 unit PO DAILY 05/13/18 04/28/19 History [Vitamin D3] Iron 18 mg PO BID 08/07/18 04/28/19 History HYDROcodone/APAP 5-325MG [Mcdavid 1 tab PO Q6HR PRN 3 Days #12 tab 04/17/19 04/28/19 Rx 5-325] Ondansetron [Zofran ODT] 4 mg PO Q8HR PRN #15 tab 04/25/19 04/28/19 Rx Levofloxacin 500 mg PO DAILY 04/28/19 04/28/19 History Allergies Allergy/AdvReac Type Severity Reaction Status Date / Time No Known Allergies Allergy Verified 04/28/19 17:50 Physical Exam Vitals: Vital Signs Temp Pulse Pulse Resp BP BP Pulse Ox 04/30/19 12:08 97 F L 55 L 17 125/59 97 04/30/19 04:32 97.7 F 56 L 17 108/64 98 04/29/19 21:00 97.7 F 55 L 16 100/60 98 04/29/19 16:00 58 L 18 04/29/19 15:17 57 L 18 131/76 98 Intake and Output 04/29/19 04/30/19 04/30/19 22:59 06:59 14:59 Intake Total 980 660 Balance 980 660 Intake: Intake, IV Titration 380 660 Amount Piperacillin-Tazobactam 3 100 100 .375 gm In Sodium Chloride 0.9% 100 ml @ 25 mls/hr IVPB Q8HR [facility] Rx# :[id number] Sodium Chloride 0.9% 1, 280 560 000 ml @ 70 mls/hr IV . [id number] [facility] Rx#:[id number] Oral 600 Other: Voiding Method Toilet Toilet Toilet # Voids 3 3 On physical examination, patient appears comfortable in no apparent distress. HEAD: Normocephalic, atraumatic. EYES: Scleral icterus. No conjunctival injection. MOUTH: No lesions, tongue midline. NECK: Trachea midline, no gross abnormalities. CHEST: Clear to auscultation with no wheezing or rhonchi appreciated. HEART: Regular rate and rhythm. ABDOMEN: Soft. Bowel sounds are positive. No organomegaly. No guarding or rigidity. EXTREMITIES: No pedal edema. SKIN: No rashes, jaundice. NEUROLOGIC: Alert and oriented x3. No focal deficits. Results CBC & Chem 7: 04/30/19 06:22 04/30/19 06:22 Labs: Abnormal Lab Results - Last 24 Hours (Table) 04/30/19 04/30/19 Range/Units 06:22 06:22 RBC 4.02 L (4.30-5.90) m/uL Hgb 12.5 L (13.0-17.5) gm/dL Hct 38.0 L (39.0-53.0) % Carbon Dioxide 31 H (22-30) mmol/L Total Bilirubin 5.7 H (0.2-1.3) mg/dL AST 117 H (17-59) U/L ALT 124 H (4-49) U/L Alkaline Phosphatase 162 H (38-126) U/L Total Protein 6.1 L (6.3-8.2) g/dL Albumin 3.1 L (3.5-5.0) g/dL Microbiology - Last 24 Hours (Table) 04/28/19 19:31 Blood Culture - Preliminary Blood No Growth after [address] scan - abdomen: report reviewed (Nonobstructive bowel gas pattern on x-ray abdomen) Assessment and Plan (1) Choledocholithiasis Narrative/Plan: 43-year-old female with a known history of symptomatic cholelithiasis scheduled for outpatient cholecystectomy presented to the hospital due to abdominal pain and jaundice and was found to have a bilirubin of 4.4. Suspicion is for choledo cholithiasis. Current Visit: Yes Status: Acute Code(s): K80.50 - CALCULUS OF BILE DUCT W/O CHOLANGITIS OR CHOLECYST W/O OBST SNOMED Code(s): 047500235 (2) Abdominal pain Current Visit: Yes Status: Acute Code(s): R10.9 - UNSPECIFIED ABDOMINAL PAIN SNOMED Code(s): 87619047 (3) Gallstone Current Visit: Yes Status: Acute Code(s): K80.20 - CALCULUS OF GALLBLADDER W/O CHOLECYSTITIS W/O OBSTRUCTION SNOMED Code(s): 735258094 (4) Jaundice Current Visit: Yes Status: Acute Code(s): R17 - UNSPECIFIED JAUNDICE SNOMED Code(s): 67163375 (5) S/P laparoscopic sleeve gastrectomy Current Visit: Yes Status: Acute Code(s): Z98.84 - BARIATRIC SURGERY STATUS SNOMED Code(s): 904453197 Plan: Supportive care Nothing by mouth We will continue antibiotic therapy Plan for ERCP for further evaluation, with the risks and benefits as well as possible complications explained to the patient at length with all questions answered to his satisfaction Thank you for allowing us to participate in the care of the patient we will continue to follow
--- NOTE | 2019-05-01 00:19 | PN ---
PROGRESS NOTE DATE OF SERVICE: 04/30/2019 This 43-year-old gentleman was admitted with acute cholelithiasis and gallbladder dysfunction; also obstructive jaundice. Surgery and Gastroenterology are following the patient closely. Dr. Crowley saw the patient today and performed ERCP with cholangiograms, sphincterotomy and balloon sweep of the bile duct for stone extraction. No chest pain. No palpitations. No fever. PHYSICAL EXAM: Alert and oriented x3. Pulse is 56, blood pressure 149/83, respirations 16, temperature 98.1, pulse ox 98% on room air. HEENT: Conjunctivae are mildly icteric. Oral mucosa moist. NECK: No jugular venous distention. No lymph node enlargement. CARDIOVASCULAR: S1, S2. RESPIRATORY: Diminished breath sounds at the bases. No rhonchi, no crackles. ABDOMEN: Soft. Mild diffuse tenderness in the right upper quadrant. NERVOUS SYSTEM: No focal deficits. LABS: WBC 9.2, hemoglobin 12.5, and bilirubin is 5.7. Albumin is 3.1. The cultures are negative so far. ASSESSMENT: 1. Acute cholelithiasis and gallbladder dysfunction with possible cholecystitis versus cholangitis. 2. Obstructive jaundice status post ERCP and sphincterotomy. 3. Continued symptomatology with failure of outpatient treatment. 4. History of bariatric surgery. 5. History of chronic esophagitis. 6. History of herniated disk L1-S1. 7. History of ear surgery. 8. History of THC. 9. Anemia, normocytic anemia of chronic disease. RECOMMENDATIONS AND DISCUSSION: Recommend to continue current medications, continue to monitor, continue symptomatic treatment. Continue with empiric antibiotics. Repeat labs in the morning. Otherwise, closely follow with Gastroenterology and Surgery. Further recommendations to follow. MMODL / IJN: [id number] /
--- NOTE | 2019-05-01 07:15 | FL ---
EXAMINATION TYPE: FL ERCP biliary duct only DATE OF EXAM: 04/30/2019 CLINICAL HISTORY: Fluoroscopic documentation during ERCP. TECHNIQUE: Fluoroscopy. COMPARISON: None. FINDINGS: Fluoroscopic guidance was provided during procedure performed by Dr. Crowley. A total of 29 seconds of fluoroscopic time was utilized during the procedure and 4 spot images was acquired duri ng opacification and sweeping of the common bile duct by ERCP. IMPRESSION: As Above.
[2019-05-01 07:22] LABS: Basophils % (A) 0 %; Eosinophils # (A) 0.2 k/uL (0-0.7); Eosinophils % (A) 2 %; HCT 36.6 % (39.0-53.0); Lymphocytes # (A) 1.7 k/uL (1.0-4.8); Lymphocytes % (A) 25 %; MCH 31.2 pg (25.0-35.0); MCHC 32.7 g/dL (31.0-37.0); MCV 95.5 fL (80.0-100.0); Mean Platelet Volume 7.2; Monocytes # (A) 0.5 k/uL (0-1.0); Monocytes % (A) 7 %; Neutrophils # (A) 4.3 k/uL (1.3-7.7); Neutrophils % (A) 62 %; Platelet Count 210 k/uL (150-450); RBC 3.83 m/uL (4.30-5.90); RDW 12.4 % (11.5-15.5)
[2019-05-01 07:35] LABS: ALT 126 U/L (4-49); AST 89 U/L (17-59); African American GFR (CKD) >90 (>60 ml/min/1.73 sqM); Albumin 2.9 g/dL (3.5-5.0); Alkaline Phosphatase 180 U/L (38-126); Anion Gap 8 mmol/L; Blood Urea Nitrogen 8 mg/dL (9-20); Calcium 8.5 mg/dL (8.4-10.2); Carbon Dioxide 28 mmol/L (22-30); Chloride 104 mmol/L (98-107); Glucose 92 mg/dL (74-99); Non-African American GFR(CKD) >90 (>60 ml/min/1.73 sqM); Potassium 4.5 mmol/L (3.5-5.1); Sodium 140 mmol/L (137-145); Total Bilirubin 4.8 mg/dL (0.2-1.3); Total Protein 5.9 g/dL (6.3-8.2)
[2019-05-01] MEDS: PIPERACILLIN-TAZOBACTAM 3.375 GM in SODIUM CHLORIDE 0.9% 100 ML IVPB SCH ×3 (09:54→23:05)
[2019-05-01] MEDS: PANTOPRAZOLE 40 MG/10 ML VIAL IV SCH (10:00)
[2019-05-01] MEDS: SODIUM CHLORIDE 0.9% 1,000 ML IV SCH (10:00)
[2019-05-01] MEDS: MULTIVITAMINS, THERA 1 EACH TAB PO SCH (10:00)
[2019-05-01] MEDS: HEPARIN SODIUM,PORCINE 5,000 UNIT/ML 1 ML VIAL SQ SCH ×2 (10:00→20:15)
[2019-05-01] MEDS: LACTATED RINGERS 1,000 ML IV SCH (10:01)
--- NOTE | 2019-05-01 14:00 | P.PN ---
<Elaine Gauthier Gabby - Last Filed: 05/01/19 13:56> Subjective Progress Note Date: 05/01/19 CHIEF COMPLAINT: abdominal pain HISTORY OF PRESENT ILLNESS: Patient examined at the bedside. He is s/p ERCP with sphincterotomy. He denies abdominal pain. Denies nausea or vomiting. Tolerating liquid diet. WBC 7.0. Hemoglobin 12.0. Bilirubin 4.8. AST 89. ALT 126. PHYSICAL EXAM: VITAL SIGNS: Reviewed GENERAL: Well-developed in no acute distress. HEENT: No sclera icterus. Extraocular movements grossly intact. Moist buccal mucosa. Head is atraumatic, normocephalic. Hears conversational speech. No nasal drainage. NECK: Supple without lymphadenopathy. CHEST: Non-labored respirations and equal bilateral excursions. CARDIOVASCULAR: Regular rate with regular rhythm. Palpable 2+ radial pulses. ABDOMEN: Soft. Nondistended. Nontender. MUSCULOSKELETAL: No clubbing, cyanosis or edema. NEUROLOGIC: No focal or lateralizing signs. Cranial nerves II through XII grossly intact. PSYCH: Appropriate affect. Alert and oriented to person, place and time. SKIN: Jaundice. Well perfused. Good skin turgor. ASSESSMENT: 1. Abdominal pain 2. Cholelithiasis, choledocholithiasis 3. Distended gallbladder consistent with gallbladder dysfunction per ultrasound 4. Hyperbilirubinemia 5. Mild transaminitis 6. History of gastric sleeve PLAN: -Advance diet -Monitor labs -Patient to undergo cholecystectomy during this hospitalization. Timing yet to be determined. Nurse practitioner note has been reviewed by physician. Signing provider agrees with the documented findings, assessment, and plan of care. Objective - Vital Signs Vital signs: Vital Signs Temp 98.5 F 05/01/19 11:10 Pulse 54 L 05/01/19 11:10 Resp 18 05/01/19 11:10 BP 123/79 05/01/19 11:10 Pulse Ox 100 05/01/19 11:10 Intake & Output 04/30/19 05/01/19 05/01/19 18:59 06:59 18:59 Intake Total 1360 3320 Balance 1360 3320 Intake: IV 700 Intake, IV Titration 660 940 Amount Piperacillin-Tazobactam 3 100 100 .375 gm In Sodium Chloride 0.9% 100 ml @ 25 mls/hr IVPB Q8HR [facility] Rx# :[id number] Sodium Chloride 0.9% 1, 560 840 000 ml @ 70 mls/hr IV . [id number] [facility] Rx#:[id number] Oral 2380 Other: Voiding Method Toilet Toilet Toilet # Voids 3 - Labs CBC & Chem 7: 05/01/19 06:04 05/01/19 06:04 Labs: Abnormal Lab Results - Last 24 Hours (Table) 05/01/19 05/01/19 Range/Units 06:04 06:04 RBC 3.83 L (4.30-5.90) m/uL Hgb 12.0 L (13.0-17.5) gm/dL Hct 36.6 L (39.0-53.0) % BUN 8 L (9-20) mg/dL Total Bilirubin 4.8 H (0.2-1.3) mg/dL AST 89 H (17-59) U/L ALT 126 H (4-49) U/L Alkaline Phosphatase 180 H (38-126) U/L Total Protein 5.9 L (6.3-8.2) g/dL Albumin 2.9 L (3.5-5.0) g/dL Microbiology - Last 24 Hours (Table) 04/28/19 19:31 Blood Culture - Preliminary Blood No Growth after 48 hours <Denise Montgomery - Last Filed: 05/01/19 23:17> Subjective Bilirubin levels improved. Recommend inpatient cholecystectomy. In interim, may have low fat diet. Objective - Vital Signs Vital signs: Vital Signs Temp 98.3 F 05/01/19 20:30 Pulse 57 L 05/01/19 20:30 Resp 16 05/01/19 20:30 BP 113/71 05/01/19 20:30 Pulse Ox 98 05/01/19 20:30 Intake & Output 05/01/19 05/01/19 05/02/19 06:59 18:59 06:59 Intake Total 3320 660 Balance 3320 660 Intake: Intake, IV Titration 940 660 Amount Piperacillin-Tazobactam 3 100 100 .375 gm In Sodium Chloride 0.9% 100 ml @ 25 mls/hr IVPB Q8HR [facility] Rx# :[id number] Sodium Chloride 0.9% 1, 840 560 000 ml @ 70 mls/hr IV . [id number] [facility] Rx#:[id number] Oral 2380 Other: Voiding Method Toilet Toilet # Voids 3 - Labs CBC & Chem 7: 05/01/19 06:04 05/01/19 06:04 Labs: Abnormal Lab Results - Last 24 Hours (Table) 05/01/19 05/01/19 Range/Units 06:04 06:04 RBC 3.83 L (4.30-5.90) m/uL Hgb 12.0 L (13.0-17.5) gm/dL Hct 36.6 L (39.0-53.0) % BUN 8 L (9-20) mg/dL Total Bilirubin 4.8 H (0.2-1.3) mg/dL AST 89 H (17-59) U/L ALT 126 H (4-49) U/L Alkaline Phosphatase 180 H (38-126) U/L Total Protein 5.9 L (6.3-8.2) g/dL Albumin 2.9 L (3.5-5.0) g/dL Microbiology - Last 24 Hours (Table) 04/28/19 19:31 Blood Culture - Preliminary Blood No Growth after 72 hours Assessment and Plan (1) Choledocholithiasis Current Visit: Yes Status: Acute Code(s): K80.50 - CALCULUS OF BILE DUCT W/O CHOLANGITIS OR CHOLECYST W/O OBST SNOMED Code(s): 093485236 (2) S/P laparoscopic sleeve gastrectomy Current Visit: Yes Status: Acute Code(s): Z98.84 - BARIATRIC SURGERY STATUS SNOMED Code(s): 874615510 (3) Gallstone Current Visit: Yes Status: Acute Code(s): K80.20 - CALCULUS OF GALLBLADDER W/O CHOLECYSTITIS W/O OBSTRUCTION SNOMED Code(s): 024414003 (4) Jaundice Current Visit: Yes Status: Acute Code(s): R17 - UNSPECIFIED JAUNDICE SNOMED Code(s): 68204453 (5) Gallstones Current Visit: No Status: Acute Code(s): K80.20 - CALCULUS OF GALLBLADDER W/O CHOLECYSTITIS W/O OBSTRUCTION SNOMED Code(s): 678236661
--- NOTE | 2019-05-01 17:57 | PN ---
PROGRESS NOTE DATE OF SERVICE: 05/01/2019 This 43-year-old gentleman was admitted with acute cholelithiasis and gallbladder dysfunction as well as possible cholecystitis versus cholangitis. He is being closely monitored. Patient had ERCP with sphincterotomy yesterday. The patient continues to be jaundiced. No chest pain. No palpitations. No fever. PHYSICAL EXAM: Alert and oriented x3. Pulse 54, blood pressure 100/75, respiration 16, temperature 98.5, pulse ox 100% on room air. HEENT: Conjunctivae icteric. Oral mucosa moist. NECK: No jugular venous distention. No lymph node enlargement. CARDIOVASCULAR: S1, S2. RESPIRATORY: Diminished breath sounds at the bases. No rhonchi, no crackles. ABDOMEN: Soft. Mild diffuse tenderness in the right upper quadrant. No guarding, no rigidity. No mass palpable. LEGS: No edema, no swelling. NERVOUS SYSTEM: No focal deficits. LABS: WBC 7, hemoglobin is 12. Otherwise, bilirubin is 4.8, AST is 89, ALT is 126 and albumin is 2.9. ASSESSMENT: 1. Acute cholelithiasis and gallbladder dysfunction with possible cholecystitis versus acute cholangitis. 2. Obstructive jaundice status post ERCP and sphincterotomy. 3. Continued symptomatology with failure of outpatient treatment. 4. History of bariatric surgery. 5. History of chronic esophagitis. 6. History of herniated disk, L5-S1. 7. History of ear surgery. 8. History of THC. 9. Anemia, normocytic anemia of chronic disease. RECOMMENDATIONS AND DISCUSSION: Recommend to continue current medications, continue symptomatic treatment. The patient still has obstructive jaundice. The bilirubin is elevated at 4.8. Will continue to monitor. Liver enzymes also elevated. Continue the broad-spectrum IV antibiotics. Closely follow with surgery. Possible surgery later. Guarded prognosis. Further recommendations to follow. MMODL / IJN: [id number] /
--- NOTE | 2019-05-01 18:52 | P.PN ---
Subjective Progress Note Date: 05/01/19 Principal diagnosis: Choledocholithiasis Patient is seen sitting bedside. Reports he is feeling better today. Abdominal pain improved and he feels he is less jaundiced. Objective - Vital Signs Vital signs: Vital Signs Temp 96.0 F L 05/01/19 04:17 Pulse 49 L 05/01/19 04:17 Resp 16 05/01/19 04:17 BP 106/63 05/01/19 04:17 Pulse Ox 96 05/01/19 04:17 Intake & Output 04/30/19 05/01/19 05/01/19 18:59 06:59 18:59 Intake Total 1360 3320 Balance 1360 3320 Intake: IV 700 Intake, IV Titration 660 940 Amount Piperacillin-Tazobactam 3 100 100 .375 gm In Sodium Chloride 0.9% 100 ml @ 25 mls/hr IVPB Q8HR [facility] Rx# :[id number] Sodium Chloride 0.9% 1, 560 840 000 ml @ 70 mls/hr IV . [id number] [facility] Rx#:[id number] Oral 2380 Other: Voiding Method Toilet Toilet # Voids 3 - Exam On physical examination, patient appears comfortable in no apparent distress. HEAD: Normocephalic, atraumatic. EYES: No scleral icterus. No conjunctival injection. MOUTH: No lesions, tongue midline. NECK: Trachea midline, no gross abnormalities. ABDOMEN: Soft. Bowel sounds are positive. No organomegaly. No guarding or rigidity. EXTREMITIES: No pedal edema. SKIN: No rashes, no jaundice. NEUROLOGIC: Alert and oriented x3. No focal deficits. - Labs CBC & Chem 7: 05/01/19 06:04 05/01/19 06:04 Labs: Abnormal Lab Results - Last 24 Hours (Table) 05/01/19 05/01/19 Range/Units 06:04 06:04 RBC 3.83 L (4.30-5.90) m/uL Hgb 12.0 L (13.0-17.5) gm/dL Hct 36.6 L (39.0-53.0) % BUN 8 L (9-20) mg/dL Total Bilirubin 4.8 H (0.2-1.3) mg/dL AST 89 H (17-59) U/L ALT 126 H (4-49) U/L Alkaline Phosphatase 180 H (38-126) U/L Total Protein 5.9 L (6.3-8.2) g/dL Albumin 2.9 L (3.5-5.0) g/dL Microbiology - Last 24 Hours (Table) 04/28/19 19:31 Blood Culture - Preliminary Blood No Growth after 48 hours Assessment and Plan (1) Choledocholithiasis Narrative/Plan: 43-year-old female with a known history of symptomatic cholelithiasis scheduled for outpatient cholecystectomy presented to the hospital due to abdominal pain and jaundice and was found to have a bilirubin of 4.4. Patient was taken for ERCP with sphincterotomy and balloon extraction of CBD stones. Current Visit: Yes Status: Acute Code(s): K80.50 - CALCULUS OF BILE DUCT W/O CHOLANGITIS OR CHOLECYST W/O OBST SNOMED Code(s): 364579670 (2) Abdominal pain Current Visit: Yes Status: Acute Code(s): R10.9 - UNSPECIFIED ABDOMINAL PAIN SNOMED Code(s): 39269618 (3) Gallstone Current Visit: Yes Status: Acute Code(s): K80.20 - CALCULUS OF GALLBLADDER W/O CHOLECYSTITIS W/O OBSTRUCTION SNOMED Code(s): 432207137 (4) Jaundice Current Visit: Yes Status: Acute Code(s): R17 - UNSPECIFIED JAUNDICE SNOMED Code(s): 03160379 (5) S/P laparoscopic sleeve gastrectomy Current Visit: Yes Status: Acute Code(s): Z98.84 - BARIATRIC SURGERY STATUS SNOMED Code(s): 679952860 Plan: Supportive care Low-fat diet Continue antibiotic therapy Timing of cholecystectomy to be determined by surgical service Thank you for allowing us to participate in the care of the patient the gastroenterology service will stand by, please call us back with any questions or concerns
[2019-05-01] MEDS: HYDROcodone/APAP 5-325MG 1 EACH TAB PO PRN (19:01)
[2019-05-02] MEDS: PANTOPRAZOLE 40 MG/10 ML VIAL IV SCH (08:20)
[2019-05-02] MEDS: HEPARIN SODIUM,PORCINE 5,000 UNIT/ML 1 ML VIAL SQ SCH ×2 (08:20→20:01)
[2019-05-02] MEDS: MULTIVITAMINS, THERA 1 EACH TAB PO SCH (08:21)
[2019-05-02] MEDS: SODIUM CHLORIDE 0.9% 1,000 ML IV SCH ×3 (08:21→23:52)
[2019-05-02] MEDS: PIPERACILLIN-TAZOBACTAM 3.375 GM in SODIUM CHLORIDE 0.9% 100 ML IVPB SCH ×3 (08:21→23:52)
[2019-05-02 10:23] LABS: ALT 127 U/L (4-49); AST 83 U/L (17-59); African American GFR (CKD) >90 (>60 ml/min/1.73 sqM); Albumin 3.2 g/dL (3.5-5.0); Alkaline Phosphatase 174 U/L (38-126); Anion Gap 7 mmol/L; Blood Urea Nitrogen 7 mg/dL (9-20); Calcium 8.7 mg/dL (8.4-10.2); Carbon Dioxide 29 mmol/L (22-30); Chloride 103 mmol/L (98-107); Glucose 137 mg/dL (74-99); HCT 37.2 % (39.0-53.0); HGB 12.1 gm/dL (13.0-17.5); MCH 31.4 pg (25.0-35.0); MCHC 32.5 g/dL (31.0-37.0); MCV 96.5 fL (80.0-100.0); Mean Platelet Volume 6.9; Non-African American GFR(CKD) >90 (>60 ml/min/1.73 sqM); Platelet Count 342 k/uL (150-450); Potassium 4.3 mmol/L (3.5-5.1); RBC 3.85 m/uL (4.30-5.90); RDW 12.3 % (11.5-15.5); Sodium 139 mmol/L (137-145); Total Bilirubin 3.2 mg/dL (0.2-1.3); Total Protein 6.3 g/dL (6.3-8.2); WBC 9.4 k/uL (3.8-10.6)
--- NOTE | 2019-05-02 11:30 | P.PN ---
<Elaine Gauthier - Last Filed: 05/02/19 11:28> Subjective Progress Note Date: 05/02/19 CHIEF COMPLAINT: abdominal pain HISTORY OF PRESENT ILLNESS: Patient examined at the bedside. He is s/p ERCP with sphincterotomy. Reports minimal abdominal pain. Denies nausea or vomiting. Amarilys erating diet. The bilirubin 3.2. AST 83. ALT 127. PHYSICAL EXAM: VITAL SIGNS: Reviewed GENERAL: Well-developed in no acute distress. HEENT: No sclera icterus. Extraocular movements grossly intact. Moist buccal mucosa. Head is atraumatic, normocephalic. Hears conversational speech. No nasal drainage. NECK: Supple without lymphadenopathy. CHEST: Non-labored respirations and equal bilateral excursions. CARDIOVASCULAR: Regular rate with regular rhythm. Palpable 2+ radial pulses. ABDOMEN: Soft. Nondistended. Nontender. MUSCULOSKELETAL: No clubbing, cyanosis or edema. NEUROLOGIC: No focal or lateralizing signs. Cranial nerves II through XII grossly intact. PSYCH: Appropriate affect. Alert and oriented to person, place and time. SKIN: Jaundice-improving. Well perfused. Good skin turgor. ASSESSMENT: 1. Abdominal pain 2. Cholelithiasis, choledocholithiasis 3. Distended gallbladder consistent with gallbladder dysfunction per ultrasound 4. Hyperbilirubinemia 5. Mild transaminitis 6. History of gastric sleeve PLAN: -Continue diet as tolerated -Monitor labs -Patient to undergo cholecystectomy during this hospitalization. Timing yet to be determined. Patient will be evaluated tomorrow by Dr. Mayers Nurse practitioner note has been reviewed by physician. Signing provider agrees with the documented findings, assessment, and plan of care. Objective - Vital Signs Vital signs: Vital Signs Temp 97.9 F 05/02/19 04:12 Pulse 53 L 05/02/19 04:12 Resp 16 05/02/19 04:12 BP 125/73 05/02/19 04:12 Pulse Ox 97 05/02/19 04:12 Intake & Output 05/01/19 05/02/19 05/02/19 18:59 06:59 18:59 Intake Total 660 590 Balance 660 590 Intake: Intake, IV Titration 660 Amount Piperacillin-Tazobactam 3 100 .375 gm In Sodium Chloride 0.9% 100 ml @ 25 mls/hr IVPB Q8HR [facility] Rx# :[id number] Sodium Chloride 0.9% 1, 560 000 ml @ 70 mls/hr IV . [id number] [facility] Rx#:[id number] Oral 590 Other: Voiding Method Toilet Toilet Toilet # Voids 2 - Labs CBC & Chem 7: 05/02/19 08:41 05/02/19 08:41 Labs: Abnormal Lab Results - Last 24 Hours (Table) 05/02/19 05/02/19 Range/Units 08:41 08:41 RBC 3.85 L (4.30-5.90) m/uL Hgb 12.1 L (13.0-17.5) gm/dL Hct 37.2 L (39.0-53.0) % BUN 7 L (9-20) mg/dL Glucose 137 H (74-99) mg/dL Total Bilirubin 3.2 H (0.2-1.3) mg/dL AST 83 H (17-59) U/L ALT 127 H (4-49) U/L Alkaline Phosphatase 174 H (38-126) U/L Albumin 3.2 L (3.5-5.0) g/dL Microbiology - Last 24 Hours (Table) 04/28/19 19:31 Blood Culture - Preliminary Blood No Growth after 72 hours <Denise Montgomery - Last Filed: 05/03/19 08:30> Subjective LFTs including total bilirubin slowly improving. Decreased jaundiced today. Will undergo inpatient cholecystectomy. Objective - Vital Signs Vital signs: Vital Signs Temp 97.7 F 05/03/19 04:36 Pulse 51 L 05/03/19 04:36 Resp 16 05/03/19 04:36 BP 130/75 05/03/19 04:36 Pulse Ox 97 05/03/19 04:36 Intake & Output 05/02/19 05/03/19 05/03/19 18:59 06:59 18:59 Intake Total 660 1700 Balance 660 1700 Intake: Intake, IV Titration 660 280 Amount Piperacillin-Tazobactam 3 100 .375 gm In Sodium Chloride 0.9% 100 ml @ 25 mls/hr IVPB Q8HR [facility] Rx# :[id number] Sodium Chloride 0.9% 1, 560 280 000 ml @ 70 mls/hr IV . [id number] [facility] Rx#:[id number] Oral 1420 Other: Voiding Method Toilet Toilet # Voids 2 - Labs CBC & Chem 7: 05/02/19 08:41 05/02/19 08:41 Labs: Abnormal Lab Results - Last 24 Hours (Table) 05/02/19 05/02/19 Range/Units 08:41 08:41 RBC 3.85 L (4.30-5.90) m/uL Hgb 12.1 L (13.0-17.5) gm/dL Hct 37.2 L (39.0-53.0) % BUN 7 L (9-20) mg/dL Glucose 137 H (74-99) mg/dL Total Bilirubin 3.2 H (0.2-1.3) mg/dL AST 83 H (17-59) U/L ALT 127 H (4-49) U/L Alkaline Phosphatase 174 H (38-126) U/L Albumin 3.2 L (3.5-5.0) g/dL Microbiology - Last 24 Hours (Table) 04/28/19 19:31 Blood Culture - Preliminary Blood No Growth after 96 hours Assessment and Plan (1) Choledocholithiasis Current Visit: Yes Status: Acute Code(s): K80.50 - CALCULUS OF BILE DUCT W/O CHOLANGITIS OR CHOLECYST W/O OBST SNOMED Code(s): 969047545 (2) S/P laparoscopic sleeve gastrectomy Current Visit: Yes Status: Acute Code(s): Z98.84 - BARIATRIC SURGERY STATUS SNOMED Code(s): 842486133 (3) Gallstone Current Visit: Yes Status: Acute Code(s): K80.20 - CALCULUS OF GALLBLADDER W/O CHOLECYSTITIS W/O OBSTRUCTION SNOMED Code(s): 801828445 (4) Jaundice Current Visit: Yes Status: Acute Code(s): R17 - UNSPECIFIED JAUNDICE SNOMED Code(s): 19560404 (5) Gallstones Current Visit: No Status: Acute Code(s): K80.20 - CALCULUS OF GALLBLADDER W/O CHOLECYSTITIS W/O OBSTRUCTION SNOMED Code(s): 697979986
[2019-05-02] MEDS: LACTATED RINGERS 1,000 ML IV SCH (14:20)
--- NOTE | 2019-05-02 19:41 | PN ---
PROGRESS NOTE DATE OF SERVICE: 05/02/2019 This 43-year-old gentleman who was admitted with acute cholelithiasis and possible cholangitis is on IV antibiotics. The patient also had ERCP and sphincterotomy and possible stone extraction by Gastroenterology Dr. Crowley also. The patient had obstructive jaundice is being closely monitored. No chest pain. No palpitations. No fever. PHYSICAL EXAM: Alert and oriented times three. Pulse 61. Blood pressure 120/47, respiration 18. Temperature 98.2, pulse ox 91 percent on room air. HEENT conjunctivae minimal icterus. Cardiovascular systems: S1, S2. Respiration: Breath sounds diminished on the bases. No rhonchi. No crackles. ABDOMEN: Soft. Mild diffuse tenderness. Discomfort on palpation of the right upper quadrant. No guarding. No rigidity. No mass palpable. Legs no edema. No swelling. Nervous System: No focal deficits. LABS: WBC 9.2. Hemoglobin 12.1. The bilirubin is 3.2, AST is 83, ALT is 125, alkaline phosphatase 174, minimally diminishing trends. Other labs are noted. ASSESSMENT: 1. Acute cholelithiasis and gallbladder dysfunction with possible cholecystitis versus acute cholangitis, present on admission. 2. Obstructive jaundice status post ERCP and sphincterotomy. 3. Continued symptomatology with failure of outpatient treatment. 4. History of bariatric surgery. 5. History of chronic esophagitis. 6. History of herniated disc, L5-S1. 7. History of ear surgery. 8. History of THC. 9. Anemia, normocytic anemia of chronic disease. RECOMMENDATIONS AND DISCUSSION: Recommend to continue current medications, continue with monitoring, symptomatic treatment. Otherwise, at this time, continue the antibiotics. Repeat labs. Closely follow with surgery. Cholecystectomy per surgery. Guarded prognosis. Further recommendations to follow. MMODL / IJN: [id number] /
[2019-05-03] MEDS: HEPARIN SODIUM,PORCINE 5,000 UNIT/ML 1 ML VIAL SQ SCH ×2 (08:40→20:11)
[2019-05-03] MEDS: PANTOPRAZOLE 40 MG TABLET PO SCH (08:40)
[2019-05-03] MEDS: MULTIVITAMINS, THERA 1 EACH TAB PO SCH (08:40)
[2019-05-03] MEDS: PIPERACILLIN-TAZOBACTAM 3.375 GM in SODIUM CHLORIDE 0.9% 100 ML IVPB SCH ×2 (08:40→16:22)
--- NOTE | 2019-05-03 11:08 | P.PN ---
Progress Note - Text Progress Note Date: 05/03/19 The patient feels better. His bilirubin has decreased to 3. On exam his vital signs are stable. His abdomen soft. Choledocholithiasis with ERCP and common bile duct stone extraction. Patient will undergo laparoscopic cholecystectomy on Sunday.
[2019-05-03] MEDS: SODIUM CHLORIDE 0.9% 1,000 ML IV SCH (13:23)
[2019-05-03] MEDS: LACTATED RINGERS 1,000 ML IV SCH (13:23)
[2019-05-03 17:47] LABS: Basophils # (A) 0.1 k/uL (0-0.2); Basophils % (A) 1 %; Eosinophils # (A) 0.2 k/uL (0-0.7); Eosinophils % (A) 2 %; HGB 12.6 gm/dL (13.0-17.5); Lymphocytes % (A) 32 %; MCH 30.1 pg (25.0-35.0); MCHC 31.5 g/dL (31.0-37.0); MCV 95.4 fL (80.0-100.0); Mean Platelet Volume 6.9; Monocytes # (A) 0.5 k/uL (0-1.0); Monocytes % (A) 5 %; Neutrophils # (A) 5.3 k/uL (1.3-7.7); Neutrophils % (A) 57 %; Platelet Count 348 k/uL (150-450); RBC 4.19 m/uL (4.30-5.90); RDW 12.5 % (11.5-15.5); WBC 9.3 k/uL (3.8-10.6)
[2019-05-03 17:57] LABS: ALT 217 U/L (4-49); AST 164 U/L (17-59); African American GFR (CKD) >90 (>60 ml/min/1.73 sqM); Albumin 3.3 g/dL (3.5-5.0); Alkaline Phosphatase 160 U/L (38-126); Anion Gap 7 mmol/L; Blood Urea Nitrogen 6 mg/dL (9-20); Calcium 8.8 mg/dL (8.4-10.2); Carbon Dioxide 29 mmol/L (22-30); Chloride 104 mmol/L (98-107); Glucose 102 mg/dL (74-99); Non-African American GFR(CKD) >90 (>60 ml/min/1.73 sqM); Potassium 4.3 mmol/L (3.5-5.1); Sodium 140 mmol/L (137-145); Total Bilirubin 2.5 mg/dL (0.2-1.3); Total Protein 6.5 g/dL (6.3-8.2)
--- NOTE | 2019-05-03 19:15 | PN ---
PROGRESS NOTE DATE OF SERVICE: 05/03/2019 This 43-year-old gentleman admitted with acute abdominal pain and features of acute cholelithiasis and possible cholangitis. Patient on broad spectrum IV antibiotics. Patient also had choledocholithiasis status post ERCP. Laparoscopic cholecystectomy on Sunday has been planned by Dr. Mayers. No chest pain. No palpitations. No fever. EXAM: Alert and oriented x3. Pulse 60, blood pressure 120/60, respiration 16, temperature 97.8, pulse ox 97% on room air/ HEENT: Conjunctivae mildly icteric. Oral mucosa moist. NECK: No jugular venous distention. No lymph node enlargement. CARDIOVASCULAR: S1, S2. RESPIRATORY: Diminished breath sounds at the bases. No rhonchi, no crackles. ABDOMEN: Soft, nontender. LEGS: No edema, no swelling. NERVOUS SYSTEM: focal deficits. LABS: Bilirubin is 3.2 yesterday. ASSESSMENT: 1. Acute cholelithiasis and gallbladder dysfunction with possible cholecystitis versus some acute cholangitis, present on admission. 2. Obstructive jaundice with choledocholithiasis, status post ERCP and sphincterotomy. 3. Continued symptomatology with failure of outpatient treatment. 4. History of bariatric surgery. 5. History of chronic esophagitis. 6. History of herniated disk, L5-S1. 7. History of ear surgery. 8. History of THC. 9. Anemia, normocytic anemia of chronic disease. RECOMMENDATIONS AND DISCUSSION: Recommend to continue current medications, continue to monitor, continue symptomatic treatment. Otherwise, at this time I recommend continue with repeat labs. Continue the antibiotics. Closely follow with surgery. Possible laparoscopic cholecystectomy. Further recommendations to follow. MMODL / IJN: [id number] /
[2019-05-04] MEDS: PIPERACILLIN-TAZOBACTAM 3.375 GM in SODIUM CHLORIDE 0.9% 100 ML IVPB SCH ×4 (00:09→23:05)
[2019-05-04 08:41] LABS: Basophils # (A) 0.1 k/uL (0-0.2); Basophils % (A) 1 %; Eosinophils # (A) 0.2 k/uL (0-0.7); Eosinophils % (A) 2 %; HCT 42.7 % (39.0-53.0); HGB 13.7 gm/dL (13.0-17.5); Lymphocytes # (A) 2.2 k/uL (1.0-4.8); Lymphocytes % (A) 29 %; MCH 30.8 pg (25.0-35.0); MCHC 32.1 g/dL (31.0-37.0); Mean Platelet Volume 6.7; Monocytes # (A) 0.4 k/uL (0-1.0); Monocytes % (A) 6 %; Neutrophils # (A) 4.6 k/uL (1.3-7.7); Neutrophils % (A) 60 %; Platelet Count 379 k/uL (150-450); RBC 4.45 m/uL (4.30-5.90); RDW 12.5 % (11.5-15.5); WBC 7.8 k/uL (3.8-10.6)
[2019-05-04] MEDS: MULTIVITAMINS, THERA 1 EACH TAB PO SCH (08:45)
[2019-05-04] MEDS: HEPARIN SODIUM,PORCINE 5,000 UNIT/ML 1 ML VIAL SQ SCH ×3 (08:45→20:11)
[2019-05-04] MEDS: PANTOPRAZOLE 40 MG TABLET PO SCH (08:45)
[2019-05-04 09:02] LABS: ALT 310 U/L (4-49); AST 250 U/L (17-59); African American GFR (CKD) >90 (>60 ml/min/1.73 sqM); Albumin 3.6 g/dL (3.5-5.0); Alkaline Phosphatase 157 U/L (38-126); Anion Gap 9 mmol/L; Blood Urea Nitrogen 6 mg/dL (9-20); Calcium 9.1 mg/dL (8.4-10.2); Carbon Dioxide 29 mmol/L (22-30); Chloride 103 mmol/L (98-107); Glucose 82 mg/dL (74-99); Non-African American GFR(CKD) >90 (>60 ml/min/1.73 sqM); Potassium 4.5 mmol/L (3.5-5.1); Sodium 141 mmol/L (137-145); Total Bilirubin 2.7 mg/dL (0.2-1.3)
[2019-05-04] MEDS: SODIUM CHLORIDE 0.9% 1,000 ML IV SCH ×2 (10:23→23:06)
[2019-05-04] MEDS: LACTATED RINGERS 1,000 ML IV SCH (11:19)
--- NOTE | 2019-05-04 11:43 | P.PN ---
Progress Note - Text Progress Note Date: 05/04/19 The patient feels well. His liver function tests have slightly increased. On exam is lesser stable. His evidence soft. Cholelithiasis with choledocholithiasis and status post ERCP with stent placement. Patient will undergo laparoscopic cholecystectomy in the a.m.
--- NOTE | 2019-05-04 15:32 | PN ---
PROGRESS NOTE DATE OF SERVICE: 05/04/2019 This 43-year-old gentleman who was admitted with acute cholelithiasis and gallbladder dysfunction, also had possible cholangitis. Dr. Mayers is planning a cholecystectomy tomorrow. No chest pain. No palpitations. No fever. Cultures are negative so far. PHYSICAL EXAMINATION: Alert and oriented x3. Pulse is 52, blood pressure 107/60, respirations 16, temperature 98.6, pulse ox 94% on room air HEENT: Conjunctivae normal. Oral mucosa moist. NECK: No jugular venous distention. No lymph node enlargement. CARDIOVASCULAR: S1, S2. RESPIRATORY: Diminished breath sounds at the bases. No rhonchi, no crackles. ABDOMEN: Soft, nontender. LEGS: No edema, no swelling. NERVOUS SYSTEM: No focal deficits. LABS: WBC 7.8, hemoglobin 13.7 sodium 141, potassium 4.5, and total bilirubin is 2.7. AST is 250 and ALT is 310. ASSESSMENT: 1. Acute cholelithiasis and gallbladder dysfunction with possible cholecystitis or acute cholangitis, present on admission. 2. Obstructive jaundice with choledocholithiasis, status post ERCP and sphincterotomy. 3. Continued symptomatology with failure of outpatient treatment. 4. History of bariatric surgery. 5. History of chronic esophagitis. 6. History of herniated disk L5-S1. 7. History of ear surgery. 8. History of THC. 9. Anemia, normocytic anemia of chronic disease. RECOMMENDATIONS AND DISCUSSION: Recommend to continue current medication, continue to monitor, continue symptomatic treatment. Otherwise, at this time I recommend continue the antibiotics, cholecystectomy by Dr. Mayers, repeat labs. The bilirubin is coming down, but other enzymes are slightly elevated. Guarded prognosis because of multiple complex medical issues. Further recommendations to follow. MMODL / IJN: [id number] /
[2019-05-05] MEDS: HEPARIN SODIUM,PORCINE 5,000 UNIT/ML 1 ML VIAL SQ SCH ×2 (08:23→21:17)
[2019-05-05] MEDS: PANTOPRAZOLE 40 MG TABLET PO SCH (08:23)
[2019-05-05] MEDS: MULTIVITAMINS, THERA 1 EACH TAB PO SCH (08:23)
[2019-05-05] MEDS: PIPERACILLIN-TAZOBACTAM 3.375 GM in SODIUM CHLORIDE 0.9% 100 ML IVPB SCH ×2 (08:30→16:46)
[2019-05-05 08:42] LABS: Basophils % (A) 1 %; Eosinophils # (A) 0.2 k/uL (0-0.7); Eosinophils % (A) 2 %; HCT 42.4 % (39.0-53.0); HGB 13.7 gm/dL (13.0-17.5); Lymphocytes # (A) 2.6 k/uL (1.0-4.8); Lymphocytes % (A) 36 %; MCH 31.2 pg (25.0-35.0); MCHC 32.2 g/dL (31.0-37.0); MCV 96.8 fL (80.0-100.0); Mean Platelet Volume 6.7; Monocytes # (A) 0.4 k/uL (0-1.0); Monocytes % (A) 6 %; Neutrophils # (A) 3.8 k/uL (1.3-7.7); Neutrophils % (A) 52 %; Platelet Count 397 k/uL (150-450); RBC 4.38 m/uL (4.30-5.90); RDW 12.5 % (11.5-15.5); WBC 7.3 k/uL (3.8-10.6)
[2019-05-05 08:54] LABS: ALT 528 U/L (4-49); AST 379 U/L (17-59); African American GFR (CKD) >90 (>60 ml/min/1.73 sqM); Albumin 3.6 g/dL (3.5-5.0); Alkaline Phosphatase 150 U/L (38-126); Anion Gap 8 mmol/L; Blood Urea Nitrogen 7 mg/dL (9-20); Calcium 9.1 mg/dL (8.4-10.2); Carbon Dioxide 29 mmol/L (22-30); Chloride 104 mmol/L (98-107); Glucose 81 mg/dL (74-99); Non-African American GFR(CKD) >90 (>60 ml/min/1.73 sqM); Potassium 4.9 mmol/L (3.5-5.1); Sodium 141 mmol/L (137-145); Total Bilirubin 2.4 mg/dL (0.2-1.3)
[2019-05-05] MEDS ORDERED: BUPIVACAIN-EPI 0.25%-1:200,000 30 ML VIAL SQ ONE (10:17)
[2019-05-05 10:35] VITALS: BMI 28.8
[2019-05-05] MEDS ORDERED: IV FLUID CONTINUATION 1,000 ML IV ONE (10:46)
[2019-05-05] MEDS ORDERED: HEPARIN SODIUM,PORCINE 5,000 UNIT/ML 1 ML VIAL SQ ONE (10:47)
[2019-05-05] MEDS ORDERED: ONDANSETRON 4 MG/2 ML VIAL IVP ONE (10:48)
[2019-05-05] MEDS ORDERED: DEXAMETHASONE SOD PHOSPHATE 10 MG/ML 1 ML VIAL IV ONE (10:48)
[2019-05-05] MEDS ORDERED: ceFAZolin 1,000 MG VIAL IVPB ONE (11:01)
[2019-05-05] MEDS ORDERED: HYDROmorphone 1 MG/ML 1 ML SYRINGE IVP ONE ×4 (12:20→12:35)
--- NOTE | 2019-05-05 12:22 | P.OP ---
Date of Procedure: 05/05/19 Preoperative Diagnosis: Cholelithiasis Cholecystitis Postoperative Diagnosis: Severe chronic cholecystitis Cholelithiasis Procedure(s) Performed: Laparoscopic cholecystectomy Anesthesia: KAYLEN Surgeon: Rajesh Mayers Estimated Blood Loss (ml): 5 Pathology: other (Gallbladder) Condition: stable Disposition: PACU Description of Procedure: The patient was placed on the operating table. The patient received a general endotracheal tube anesthesia. The patients abdomen was prepped and draped in the usual sterile fashion. Through an infraumbilical stab incision, the fascia of the anterior abdominal wall was grasped with a pair of Kochers and then the Veress needle was placed in the peritoneal cavity. Position of the Veress needle was confirmed with positive drop test. The abdomen was then insufflated. After adequate insufflation, the 10 mm trocar was placed in the peritoneal cavity. Following this the laparoscope was placed in the peritoneal cavity. The patient was placed in the head-up, right side up position and then a 5 mm trocar was placed in the right lateral and right subcostal position under direct visualization. A 8 mm trocar was placed in the epigastric position. The gallbladder was grossly inflamed. The gallbladder could not be grasped with a tooth grasper. A traditional grasper was then used to grasp the gallbladder. The gallbladder was grasped in the fundus and infundibulum. Traction on the gallbladder was placed in the lateral and the cephalad positions. The triangle of Calot was visualized.. The cystic duct was bluntly dissected until the union of the cystic duct and common bile duct was seen. A critical view of safety was achieved. Cystic duct was then ligated with a 2-0 Ethibond suture and tied device. The cystic duct was then divided and sealed with the Harmonic scissors. . The cystic artery divided and sealed with the Harmonic scissors. The gallbladder was then removed from the liver bed using Harmonic scissors. The gallbladder wall containing intramural abscess. This was drained while The gallbladder was then extracted through the epigastric port site. Operative field was checked for any bleeding spots and Harmonic scissors was used to coagulate the liver bed. ABDELRAHMAN drain was placed in the gallbladder fossa. The abdomen was irrigated. The trocars were removed. The skin was closed using interrupted 3-0 Vicryl suture. Dermabond dressing were applied. The patient tolerated the procedure well.
[2019-05-05] MEDS ORDERED: SODIUM CHLORIDE 0.9% 1,000 ML IV ONE (12:36)
[2019-05-05] MEDS: HYDROcodone/APAP 5-325MG 1 EACH TAB PO PRN ×2 (14:36→21:21)
[2019-05-05] MEDS: LACTATED RINGERS 1,000 ML IV SCH (14:37)
--- NOTE | 2019-05-05 14:51 | P.PN ---
Subjective Progress Note Date: 05/05/19 This a 43-year-old gentleman admitted with multiple medical issues including acute cholelithiasis, gallbladder dysfunction, obstructive jaundice with choledocholithiasis, failed outpatient treatment. NPO for laparoscopic cholecystectomy today. T bili trending down, 2.4, AST, ALT further elevated. Afebrile, blood cultures no growth. Denies chest pain, palpitations. Objective - Vital Signs Vital signs: Vital Signs Temp 97.3 F L 05/05/19 10:27 Pulse 59 L 05/05/19 10:27 Resp 14 05/05/19 10:27 BP 109/62 05/05/19 10:27 Pulse Ox 99 05/05/19 10:27 Intake & Output 05/04/19 05/05/19 05/05/19 18:59 06:59 18:59 Intake Total 1740 Balance 1740 Weight 102.06 kg Intake: Intake, IV Titration 730 Amount Piperacillin-Tazobactam 3 100 .375 gm In Sodium Chloride 0.9% 100 ml @ 25 mls/hr IVPB Q8HR [facility] Rx# :[id number] Sodium Chloride 0.9% 1, 630 000 ml @ 70 mls/hr IV . [id number] [facility] Rx#:[id number] Oral 1010 Other: Voiding Method Toilet Toilet # Voids 2 2 - Labs CBC & Chem 7: 05/05/19 07:26 05/05/19 07:26 Labs: Abnormal Lab Results - Last 24 Hours (Table) 05/05/19 Range/Units 07:26 BUN 7 L (9-20) mg/dL Total Bilirubin 2.4 H (0.2-1.3) mg/dL AST 379 H (17-59) U/L ALT 528 H (4-49) U/L Alkaline Phosphatase 150 H (38-126) U/L Microbiology - Last 24 Hours (Table) 04/28/19 19:31 Blood Culture - Final Blood No Growth after 144 hours Assessment and Plan Assessment: Final Diagnoses: Acute cholelithiasis and gallbladder dysfunction, possible cholecystitis or acute cholangitis, present on admission Obstructive jaundice with choledocholithiasis status post ERCP and sphincterotomy Continued symptomatology with failure of outpatient treatment History of bariatric surgery Chronic esophagitis Anemia, normocytic of chronic disease History of THC use Plan: Continue current medication regime ,monitoring and symptomatic treatment. NPO, scheduled for laparoscopic cholecystectomy today. Follow closely with surgery. Further recommendations to follow. The impression and plan of care has been dictated as directed. : I performed a history and examination of this patient, discussed the same with the dictator. I agree with the dictator's note ,documented as a scribe. Any additional findings or plans will be noted.
[2019-05-05] MEDS: SODIUM CHLORIDE 0.9% 1,000 ML IV SCH (16:46)
[2019-05-05] MEDS: HYDROmorphone 1 MG/ML 1 ML SYRINGE IVP PRN ×2 (17:18→19:52)
[2019-05-06] MEDS: HYDROmorphone 1 MG/ML 1 ML SYRINGE IVP PRN ×3 (00:48→15:35)
[2019-05-06] MEDS: HYDROcodone/APAP 5-325MG 1 EACH TAB PO PRN ×4 (02:18→23:38)
[2019-05-06] MEDS: SODIUM CHLORIDE 0.9% 1,000 ML IV SCH ×2 (06:06→23:41)
[2019-05-06] MEDS: HEPARIN SODIUM,PORCINE 5,000 UNIT/ML 1 ML VIAL SQ SCH ×2 (08:11→20:03)
[2019-05-06] MEDS: MULTIVITAMINS, THERA 1 EACH TAB PO SCH (08:11)
[2019-05-06] MEDS: PANTOPRAZOLE 40 MG TABLET PO SCH (08:11)
[2019-05-06 09:22] LABS: Basophils # (A) 0.1 k/uL (0-0.2); Basophils % (A) 0 %; Eosinophils # (A) 0.1 k/uL (0-0.7); Eosinophils % (A) 1 %; HCT 42.8 % (39.0-53.0); HGB 13.5 gm/dL (13.0-17.5); Lymphocytes # (A) 3.3 k/uL (1.0-4.8); Lymphocytes % (A) 20 %; MCH 30.6 pg (25.0-35.0); MCHC 31.5 g/dL (31.0-37.0); MCV 97.2 fL (80.0-100.0); Mean Platelet Volume 6.7; Monocytes # (A) 0.7 k/uL (0-1.0); Monocytes % (A) 4 %; Neutrophils # (A) 12.3 k/uL (1.3-7.7); Neutrophils % (A) 74 %; Platelet Count 458 k/uL (150-450); RDW 12.5 % (11.5-15.5); WBC 16.7 k/uL (3.8-10.6)
[2019-05-06 09:26] LABS: ALT 710 U/L (4-49); AST 475 U/L (17-59); African American GFR (CKD) >90 (>60 ml/min/1.73 sqM); Albumin 3.7 g/dL (3.5-5.0); Alkaline Phosphatase 145 U/L (38-126); Anion Gap 8 mmol/L; Blood Urea Nitrogen 11 mg/dL (9-20); Calcium 9.1 mg/dL (8.4-10.2); Carbon Dioxide 30 mmol/L (22-30); Chloride 100 mmol/L (98-107); Glucose 119 mg/dL (74-99); Non-African American GFR(CKD) >90 (>60 ml/min/1.73 sqM); Potassium 4.9 mmol/L (3.5-5.1); Sodium 138 mmol/L (137-145); Total Bilirubin 2.6 mg/dL (0.2-1.3); Total Protein 7.2 g/dL (6.3-8.2)
--- NOTE | 2019-05-06 13:22 | P.PN ---
Subjective Progress Note Date: 05/06/19 CHIEF COMPLAINT: abdominal pain HISTORY OF PRESENT ILLNESS: Patient examined at the bedside. He is s/p ERCP with sphincterotomy. He is also status post laparoscopic cholecystectomy. Patient reports abdominal pain is tolerable. Tolerating diet without nausea or vomiting. ABDELRAHMAN with sanguinous drainage. WBC 16.7. Bilirubin 2.6. AST 475. ALT 710. PHYSICAL EXAM: VITAL SIGNS: Reviewed GENERAL: Well-developed in no acute distress. HEENT: No sclera icterus. Extraocular movements grossly intact. Moist buccal mucosa. CHEST: Non-labored respirations and equal bilateral excursions. ABDOMEN: Soft. Nondistended. Appropriate surgical tenderness. Incisions clean dry and intact. ABDELRAHMAN drain with sanguinous drainage. PSYCH: Appropriate affect. Alert and oriented to person, place and time. SKIN: Well perfused. Good skin turgor. ASSESSMENT: 1. Abdominal pain 2. Cholelithiasis, choledocholithiasis 3. Distended gallbladder consistent with gallbladder dysfunction per ultrasound 4. Hyperbilirubinemia 5. Transaminitis 6. History of gastric sleeve PLAN: -Advance diet -Monitor WBC. Begin Zosyn. Patient will be discharged home on oral antibiotics -Pain control -Incentive spirometry -Activity as tolerated -Monitor LFTs. Repeat in AM -Monitor ABDELRAHMAN drain output. Patient will be discharged with ABDELRAHMAN -Will re-evaluate patient tomorrow. Possible DC tomorrow pending labs Nurse practitioner note has been reviewed by physician. Signing provider agrees with the documented findings, assessment, and plan of care. Objective - Vital Signs Vital signs: Vital Signs Temp 98.1 F 05/06/19 11:33 Pulse 70 05/06/19 11:33 Resp 18 05/06/19 11:33 BP 104/66 05/06/19 11:33 Pulse Ox 99 05/06/19 11:33 Intake & Output 05/05/19 05/06/19 05/06/19 18:59 06:59 18:59 Intake Total 1600 730 Output Total 90 100 110 Balance 1510 630 -110 Weight 102.06 kg Intake: IV 1000 Intake, IV Titration 600 730 Amount IV Fluid Continuation 1, 600 000 ml @ 0 mls/hr IV .[facility] Rx#:[id number] Piperacillin-Tazobactam 3 100 .375 gm In Sodium Chloride 0.9% 100 ml @ 25 mls/hr IVPB Q8HR [facility] Rx# :[id number] Sodium Chloride 0.9% 1, 630 000 ml @ 70 mls/hr IV . [id number] [facility] Rx#:[id number] Output: Drainage 40 100 110 Right Abdomen 40 100 110 Estimated Blood Loss 50 Other: Voiding Method Toilet Toilet # Voids 2 - Labs CBC & Chem 7: 05/06/19 08:49 05/06/19 08:49 Labs: Abnormal Lab Results - Last 24 Hours (Table) 05/06/19 05/06/19 Range/Units 08:49 08:49 WBC 16.7 H (3.8-10.6) k/uL Plt Count 458 H (150-450) k/uL Neutrophils # 12.3 H (1.3-7.7) k/uL Glucose 119 H (74-99) mg/dL Total Bilirubin 2.6 H (0.2-1.3) mg/dL AST 475 H (17-59) U/L ALT 710 H (4-49) U/L Alkaline Phosphatase 145 H (38-126) U/L
[2019-05-06] MEDS: LACTATED RINGERS 1,000 ML IV SCH (13:28)
--- NOTE | 2019-05-06 16:17 | P.PN ---
Subjective Progress Note Date: 05/06/19 This a 43-year-old gentleman admitted with multiple medical issues including acute cholelithiasis, gallbladder dysfunction, obstructive jaundice with choledocholithiasis, failed outpatient treatment. NPO for laparoscopic cholecystectomy today. T bili trending down, 2.4, AST, ALT further elevated. Afebrile, blood cultures no growth. Denies chest pain, palpitations. 05/06/2019 status post laparoscopic cholecystectomy yesterday, tolerated procedure well. Pain controlled. Passing flatus. Tolerating diet with no nausea or vomiting. Afebrile, WBC 16.7. T bili 2.6, AST 475, ALT 710, alk phos 145. Denies chest pain, palpitations. Objective - Vital Signs Vital signs: Vital Signs Temp 98.1 F 05/06/19 11:33 Pulse 70 05/06/19 11:33 Resp 18 05/06/19 11:33 BP 104/66 05/06/19 11:33 Pulse Ox 99 05/06/19 11:33 Intake & Output 05/05/19 05/06/19 05/06/19 18:59 06:59 18:59 Intake Total 1600 730 Output Total 90 100 110 Balance 1510 630 -110 Weight 102.06 kg Intake: IV 1000 Intake, IV Titration 600 730 Amount IV Fluid Continuation 1, 600 000 ml @ 0 mls/hr IV .[facility] Rx#:[id number] Piperacillin-Tazobactam 3 100 .375 gm In Sodium Chloride 0.9% 100 ml @ 25 mls/hr IVPB Q8HR [facility] Rx# :[id number] Sodium Chloride 0.9% 1, 630 000 ml @ 70 mls/hr IV . [id number] [facility] Rx#:[id number] Output: Drainage 40 100 110 Right Abdomen 40 100 110 Estimated Blood Loss 50 Other: Voiding Method Toilet Toilet # Voids 2 2 - Exam PHYSICAL EXAM: VITAL SIGNS: As above GENERAL: Sitting up in bed, no acute distress HEENT: Conjunctivae normal. eyes normal. Oral mucosa moist. NECK: No JVD. No thyroid enlargement. No LNs CARDIOVASCULAR: S1, S2 regular.. No murmur RESPIRATION: Breath sounds diminished in the bases. No rhonchi or crackles. ABDOMEN: Soft, status post surgery. Incisions clean dry and intact, well approximated .ABDELRAHMAN with sanguinous drainage .No guarding. Bowel sounds heard. LEGS: No edema. no swelling PSYCHIATRY: Alert and oriented X3, mood and affect normal. NERVOUS SYSTEM: Cranial N 2-12 grossly normal. Moves all 4 limbs. No focal deficits. Strength and sensation grossly intact.. Skin: no rash - Labs CBC & Chem 7: 05/06/19 08:49 05/06/19 08:49 Labs: Abnormal Lab Results - Last 24 Hours (Table) 05/06/19 05/06/19 Range/Units 08:49 08:49 WBC 16.7 H (3.8-10.6) k/uL Plt Count 458 H (150-450) k/uL Neutrophils # 12.3 H (1.3-7.7) k/uL Glucose 119 H (74-99) mg/dL Total Bilirubin 2.6 H (0.2-1.3) mg/dL AST 475 H (17-59) U/L ALT 710 H (4-49) U/L Alkaline Phosphatase 145 H (38-126) U/L Assessment and Plan Assessment: Final Diagnoses: Acute cholelithiasis and gallbladder dysfunction, possible cholecystitis or acute cholangitis, present on admission, status post laparoscopic cholecystectomy. Obstructive jaundice with choledocholithiasis status post ERCP and sphincterotomy Continued symptomatology with failure of outpatient treatment History of bariatric surgery Chronic esophagitis Anemia, normocytic of chronic disease History of THC use Plan: Continue current medication regime ,monitoring and symptomatic treatment. Pain management, diet advancement as per surgery. Antibiotics initiated as per surgery. Aggressive pulmonary toileting with incentive spirometer reinforced. Close monitoring of CBC, LFTs with repeat levels ordered for a.m. The impression and plan of care has been dictated as directed. : I performed a history and examination of this patient, discussed the same with the dictator. I agree with the dictator's note ,documented as a scribe. Any additional findings or plans will be noted.
[2019-05-06] MEDS: PIPERACILLIN-TAZOBACTAM 3.375 GM in SODIUM CHLORIDE 0.9% 100 ML IVPB SCH ×2 (16:22→23:39)
[2019-05-07] MEDS: HYDROmorphone 1 MG/ML 1 ML SYRINGE IVP PRN (03:45)
[2019-05-07 05:36] VITALS: RESP 18
[2019-05-07 07:30] LABS: Basophils # (A) 0.1 k/uL (0-0.2); Basophils % (A) 1 %; Eosinophils # (A) 0.1 k/uL (0-0.7); Eosinophils % (A) 1 %; HCT 36.4 % (39.0-53.0); HGB 11.5 gm/dL (13.0-17.5); Lymphocytes # (A) 2.1 k/uL (1.0-4.8); Lymphocytes % (A) 18 %; MCH 30.5 pg (25.0-35.0); MCHC 31.5 g/dL (31.0-37.0); MCV 96.8 fL (80.0-100.0); Mean Platelet Volume 6.6; Monocytes # (A) 0.6 k/uL (0-1.0); Monocytes % (A) 5 %; Neutrophils # (A) 8.3 k/uL (1.3-7.7); Neutrophils % (A) 73 %; Platelet Count 269 k/uL (150-450); RBC 3.76 m/uL (4.30-5.90); RDW 12.6 % (11.5-15.5); WBC 11.4 k/uL (3.8-10.6)
[2019-05-07 07:50] LABS: ALT 593 U/L (4-49); AST 276 U/L (17-59); African American GFR (CKD) >90 (>60 ml/min/1.73 sqM); Albumin 3.1 g/dL (3.5-5.0); Alkaline Phosphatase 108 U/L (38-126); Anion Gap 6 mmol/L; Blood Urea Nitrogen 11 mg/dL (9-20); Calcium 8.8 mg/dL (8.4-10.2); Carbon Dioxide 32 mmol/L (22-30); Chloride 102 mmol/L (98-107); Glucose 84 mg/dL (74-99); Non-African American GFR(CKD) >90 (>60 ml/min/1.73 sqM); Potassium 5.1 mmol/L (3.5-5.1); Sodium 140 mmol/L (137-145); Total Protein 6.2 g/dL (6.3-8.2)
[2019-05-07] MEDS: PIPERACILLIN-TAZOBACTAM 3.375 GM in SODIUM CHLORIDE 0.9% 100 ML IVPB SCH (08:25)
[2019-05-07] MEDS: HEPARIN SODIUM,PORCINE 5,000 UNIT/ML 1 ML VIAL SQ SCH (08:28)
[2019-05-07] MEDS: MULTIVITAMINS, THERA 1 EACH TAB PO SCH (08:28)
[2019-05-07] MEDS: PANTOPRAZOLE 40 MG TABLET PO SCH (08:28)
--- NOTE | 2019-05-07 11:11 | P.PN ---
Subjective Progress Note Date: 05/07/19 CHIEF COMPLAINT: abdominal pain HISTORY OF PRESENT ILLNESS: Patient examined at the bedside. He is s/p ERCP with sphincterotomy. He is also status post laparoscopic cholecystectomy. Patient reports abdominal pain is tolerable. Tolerating diet without nausea or vomiting. ABDELRAHMAN with sanguinous drainage. WBC 11.4. Hemoglobin 11.5. Bilirubin 2.0. AST 276. ALT 593. PHYSICAL EXAM: VITAL SIGNS: Reviewed GENERAL: Well-developed in no acute distress. HEENT: No sclera icterus. Extraocular movements grossly intact. Moist buccal mucosa. CHEST: Non-labored respirations and equal bilateral excursions. ABDOMEN: Soft. Nondistended. Appropriate surgical tenderness. Incisions clean dry and intact. ABDELRAHMAN drain with sanguinous drainage. PSYCH: Appropriate affect. Alert and oriented to person, place and time. SKIN: Well perfused. Good skin turgor. ASSESSMENT: 1. Abdominal pain 2. Cholelithiasis, choledocholithiasis 3. Distended gallbladder consistent with gallbladder dysfunction per ultrasound 4. Hyperbilirubinemia 5. Transaminitis 6. History of gastric sleeve PLAN: -Continue diet -Pain control -Continue ABDELRAHMAN drain at discharge. Nursing to provide education on how to empty drain -Stable for DC from a surgical standpoint. -Rx for antibiotics and pain medications sent to patients pharmacy -Follow up [address] Mayers Nurse practitioner note has been reviewed by physician. Signing provider agrees with the documented findings, assessment, and plan of care. Objective - Vital Signs Vital signs: Vital Signs Temp 97.9 F 05/07/19 05:00 Pulse 72 05/07/19 05:00 Resp 18 05/07/19 05:00 BP 123/77 05/07/19 05:00 Pulse Ox 96 05/07/19 05:00 Intake & Output 05/06/19 05/07/19 05/07/19 18:59 06:59 18:59 Intake Total 480 Output Total 110 Balance -110 480 Intake: Intake, IV Titration 480 Amount Piperacillin-Tazobactam 3 200 .375 gm In Sodium Chloride 0.9% 100 ml @ 25 mls/hr IVPB Q8HR [facility] Rx# :[id number] Sodium Chloride 0.9% 1, 280 000 ml @ 70 mls/hr IV . [id number] [facility] Rx#:[id number] Output: Drainage 110 Right Abdomen 110 Other: Voiding Method Toilet Toilet Toilet # Voids 2 - Labs CBC & Chem 7: 05/07/19 06:36 05/07/19 06:36 Labs: Abnormal Lab Results - Last 24 Hours (Table) 05/07/19 05/07/19 Range/Units 06:36 06:36 WBC 11.4 H (3.8-10.6) k/uL RBC 3.76 L (4.30-5.90) m/uL Hgb 11.5 L (13.0-17.5) gm/dL Hct 36.4 L (39.0-53.0) % Neutrophils # 8.3 H (1.3-7.7) k/uL Carbon Dioxide 32 H (22-30) mmol/L Total Bilirubin 2.0 H (0.2-1.3) mg/dL AST 276 H (17-59) U/L ALT 593 H (4-49) U/L Total Protein 6.2 L (6.3-8.2) g/dL Albumin 3.1 L (3.5-5.0) g/dL
[2019-05-07 11:52] VITALS: BP 114/69; PULSE 64; TEMP 98
[2019-05-07] MEDS: HYDROcodone/APAP 5-325MG 1 EACH TAB PO PRN (12:48)
--- NOTE | 2019-05-07 14:01 | P.DS ---
Providers Date of admission: 04/28/19 16:54 Expected date of discharge: 05/07/19 Attending physician: Israel Mayen Consults: 04/28/19 22:58 Consult Physician Urgent Consulting Provider: Rajesh Mayers Consult Reason/Comments: gallstones Do you want consulting provider notified?: Yes Primary care physician: Israel Mayen Hospital Course: Final Diagnoses: Acute cholelithiasis and gallbladder dysfunction, possible cholecystitis or acute cholangitis, present on admission, status post laparoscopic cholecystectomy.Gallbladder grossly inflamed, gallbladder wall containing intramural abscess-drained. Pathology reporting gangrenous cholecystitis with cholelithiasis. Obstructive jaundice with choledocholithiasis status post ERCP and sphincterotomy Continued symptomatology with failure of outpatient treatment History of bariatric surgery Chronic esophagitis Anemia, normocytic of chronic disease History of THC use Hospital course:This a 43-year-old gentleman admitted with multiple medical issues including acute cholelithiasis, gallbladder dysfunction, obstructive jaundice with choledocholithiasis, failed outpatient treatment. NPO for laparoscopic cholecystectomy today. T bili trending down, 2.4, AST, ALT further elevated. Afebrile, blood cultures no growth. Denies chest pain, palpitations. 05/06/2019 status post laparoscopic cholecystectomy yesterday, tolerated procedure well. Pain controlled. Passing flatus. Tolerating diet with no nausea or vomiting. Afebrile, WBC 16.7. T bili 2.6, AST 475, ALT 710, alk phos 145. Denies chest pain, palpitations. Gallbladder grossly inflamed, gallbladder wall containing intramural abscess- drained. Antibiotics initiated as per surgery. Pathology pending. Pathology reporting gangrenous cholecystitis with cholelithiasis. Maintained on IV antibiotics as per surgery. Afebrile, WBC improving, 11.4. Cleared by surgery for discharge. Patient being discharged home in stable condition with guarded prognosis. EXAM: GENERAL: Sitting up in bed, no acute distress CARDIOVASCULAR: S1, S2 regular. No murmur RESPIRATION: Breath sounds diminished in the bases. No rhonchi or crackles. ABDOMEN: Soft, status post surgery. Incisions clean dry and intact, well approximated .No guarding. Bowel sounds heard. NERVOUS SYSTEM: No focal deficits. The impression and plan of care has been dictated as directed. : I performed a history and examination of this patient, discussed the same with the dictator. I agree with the dictator's note ,documented as a scribe. Any additional findings or plans will be noted. Patient Condition at Discharge: Stable Plan - Discharge Summary New Discharge Prescriptions: New Levofloxacin [Levaquin] 500 mg PO DAILY #7 tab Hydrocodone/Acetaminophen [[place] 5-325] 1 tab PO Q6HR PRN 3 Days #12 tab PRN Reason: Pain Continue Multivitamins, Thera [Multivitamin (formulary)] 1 tab PO DAILY Calcium Citrate 500 mg PO TID Cholecalciferol (Vitamin D3) [Vitamin D3] 10,000 unit PO DAILY Iron 18 mg PO BID Ondansetron [Zofran ODT] 4 mg PO Q8HR PRN #15 tab PRN Reason: Nausea Levofloxacin 500 mg PO DAILY Discharge Medication List Calcium Citrate 500 mg PO TID 12/19/17 [History] Multivitamins, Thera [Multivitamin (formulary)] 1 tab PO DAILY 12/19/17 [History] Cholecalciferol (Vitamin D3) [Vitamin D3] 10,000 unit PO DAILY 05/13/18 [History] Iron 18 mg PO BID 08/07/18 [History] Ondansetron [Zofran ODT] 4 mg PO Q8HR PRN #15 tab 04/25/19 [Rx] Levofloxacin 500 mg PO DAILY 04/28/19 [History] Hydrocodone/Acetaminophen [[place] 5-325] 1 tab PO Q6HR PRN 3 Days #12 tab 05/07/19 [Rx] Levofloxacin [Levaquin] 500 mg PO DAILY #7 tab 05/07/19 [Rx] Follow up Appointment(s)/Referral(s): Israel Mayen DO [Primary Care Provider] - 3 Days Rajesh Mayers MD [STAFF PHYSICIAN] - 05/15/19 3:25 pm Ambulatory/Diagnostic Orders: Comprehensive Metabolic Panel [LAB.AMB] Time Frame: 3 Days, Location: None Selected Activity/Diet/Wound Care/Special Instructions: Antibiotics/pain management as per surgery No driving while taking [place] No lifting over 10 pounds You may shower. No soaking or tub baths Very light activity until you are reevaluated at your follow up appointment with your surgeon Keep a log of ABDELRAHMAN drain output and bring with you to your follow-up appointment
== END 2019-05-07 14:50 | disposition home or self-care (01) | DRG 419 ==
LOC: EC 13:01 → 4SSUR 16:54 → 5NMEDONC 04-29 15:44
PROVIDERS: ADMIT Family Medicine; ATTEND Family Medicine
PROC: 0FC98ZZ Extirpation of Matter from Common Bile Duct, Via Natural or Artificial Opening Endoscopic (ICD-10-PCS; 2019-04-30 10:00)
PROC: 0FT44ZZ Resection of Gallbladder, Percutaneous Endoscopic Approach (ICD-10-PCS; principal; 2019-05-05 11:10)
DX: K80.67 Calculus of gallbladder and bile duct with acute and chronic cholecystitis with obstruction (principal); K82.A1 Gangrene of gallbladder in cholecystitis; Z98.84 Bariatric surgery status; D63.8 Anemia in other chronic diseases classified elsewhere; K20.8 Other esophagitis; Z83.3 Family history of diabetes mellitus; Z79.899 Other long term (current) drug therapy
CPT/HCPCS: 36415; 43262; 43264; 74018; 74328; 80053; 81001; 82150; 83690; 85025; 85027; 85610; 85730; 87040; 88304; 96365; 96366; 96372; 96375; 99285

== ENCOUNTER → 2019-06-02 | Outpatient (CLI) | payer BC ==
[2019-06-02 13:15] VITALS: BP 117/75; PULSE 52; TEMP 98; BMI 29.0
--- NOTE | 2019-06-02 13:38 | P.HPBAR ---
Bariatric H&P - History & Physicial H&P Date: 06/02/19 History & Physicial: Visit/CC: Post cholecystectomy Patient initial contact: Initial weight: 166.151 kg Initial weight in pounds: 366.30 Height: 6 ft 1.5 in Initial BMI: 47.7 Last weight: Current weight: 100.97 kg Current weight in pounds: 222.60 Current BMI: 29.0 [place] body weight (based on NIH guidelines): 84.822 kg Excess body weight loss: 80.1% The patient is a 43 year-old M who presents for Bariatric Assessment. She pres ents today for sleeve gastric fall. He had his gallbladder removed last month for choledocholithiasis. He currently feels well. He's had some minimal GERD. Past Medical History Past Medical History: No Reported History Additional Past Medical History / Comment(s): chronic esophagitis dx 03/20/17 by EGD (Dr. Mayers), states he has herniated discs between L1 and S1 (one of which is near deterioration) History of Any Multi-Drug Resistant Organisms: None Reported Past Surgical History: Bariatric Surgery, Cholecystectomy, Ear Surgery Additional Past Surgical History / Comment(s): Ear tubes as a child, pain injections lower back ; vertical sleeve gastrectomy (11-21-17, Dr. Mayers) Past Anesthesia/Blood Transfusion Reactions: No Reported Reaction Additional Past Anesthesia/Blood Transfusion Reaction / Comm: Has never had general anesthesia, no problems noted with [place] anesthesia for EGD on 03-20-17 Past Psychological History: No Psychological Hx Reported Smoking Status: Never smoker Past Alcohol Use History: None Reported, Occasional Past Drug Use History: Marijuana Additional Drug Use History / Comment(s): occasional marijuana for back pain - Past Family History Mother Family Medical History: Diabetes Mellitus Additional Family Medical History / Comment(s): DDD, Anusha en Y sx, open heart sx, heart valve replacement, DM, Multiple back sx, lung disorder originated from [place] and led to mold spores in lungs, smoker Father Family Medical History: No Reported History Additional Family Medical History / Comment(s): patient states father does not go to the doctor, has bad knees but that's about it. Surgical - Exam Vital Signs Temp Pulse BP 98.0 F 52 L 117/75 06/02/19 13:12 06/02/19 13:12 06/02/19 13:12 - General well developed, well nourished, no distress - Eyes PERRL - ENT normal pinna - Neck no masses - Respiratory normal expansion - Cardiovascular Rhythm: regular - Abdomen Abdomen: soft, non tender Bariatric Assessment & Plan Plan: Is mostly discharge. Patient's syncopal. His crit is minimal be observed. He's had excellent weight loss. Bariatric Checklist Checklist: Plan: Checklist: EGD: 1. Hiatal hernia: 2. H. Pylori: HgbA1c: Vitamin D: Smoking: Never smoker Primary care physician referral: Dr. Israel Mayen Psychiatry clearance: Cardiology clearance: Sleep study: Diet journal: VTE risk score: VTE risk level: Rehab needs at discharge:
== END | disposition home or self-care (01) ==
LOC: BARWHC3 12:56
PROVIDERS: ATTEND Surgery
DX: Z48.815 Encounter for surgical aftercare following surgery on the digestive system (principal); R55 Syncope and collapse; K21.9 Gastro-esophageal reflux disease without esophagitis; Z98.84 Bariatric surgery status; Z90.49 Acquired absence of other specified parts of digestive tract
CPT/HCPCS: 99211

== ENCOUNTER → 2020-06-09 | Outpatient (CLI) | payer BC ==
[2020-06-09 14:13] LABS: HCT 43.2 % (39.6-50.0); HGB 14.3 g/dL (13.0-17.0); MCH 30.8 pg (27.0-32.0); MCHC 33.1 g/dL (32.0-37.0); MCV 93.1 fL (80.0-97.0); Platelet Count 185 X 10*3/uL (140-440); RBC 4.64 X 10*6/uL (4.40-5.60); RDW 11.9 % (11.5-14.5)
[2020-06-09 15:23] LABS: % Iron Saturation 33.33 (15.00-50.00); ALT 25 U/L (10-49); AST 27 U/L (14-35); African American GFR (CKD) 120.8 (60.0-200.0); Albumin/Globulin Ratio 2.37 (1.60-3.17); Alkaline Phosphatase 56 U/L (41-126); BUN/Creat Ratio 17.78 Ratio (12.00-20.00); Calcium 9.1 mg/dL (8.7-10.3); Carbon Dioxide 30.5 mmol/L (21.6-31.8); Chloride 106 mmol/L (96-109); Globulin 1.9 g/dL (1.6-3.3); Glucose 91 mg/dL (70-110); Iron 101 ug/dL (65-175); Non-African American GFR(CKD) 104.2 (60.0-200.0); Potassium 4.6 mmol/L (3.5-5.5); Sodium 142 mmol/L (135-145); Total Bilirubin 0.5 mg/dL (0.2-1.2); Total Iron Binding Capacity 303 ug/dL (228-460); Total Protein 6.4 g/dL (6.2-8.2)
[2020-06-09 15:35] LABS: Folate, Serum >24.0 ng/mL
== END | disposition home or self-care (01) ==
LOC: LABWHC1 08:07
PROVIDERS: ATTEND Surgery
DX: E55.9 Vitamin D deficiency, unspecified (principal); D50.9 Iron deficiency anemia, unspecified; E44.0 Moderate protein-calorie malnutrition; E66.01 Morbid (severe) obesity due to excess calories
CPT/HCPCS: 36415; 80053; 82306; 82607; 82728; 82746; 83540; 83550; 84425; 84443; 85027

== ENCOUNTER → 2020-06-14 | Outpatient (CLI) | payer BC ==
[2020-06-14 13:16] VITALS: BP 111/60; PULSE 84; RESP 18; TEMP 98.6; BMI 32.0
--- NOTE | 2020-06-28 11:45 | P.HPBAR ---
Bariatric H&P - History & Physicial H&P Date: 06/28/20 History & Physicial: Visit/CC: follow up Patient initial contact: Initial weight: 166.151 kg Initial weight in pounds: 366.30 Height: 6 ft 1.5 in Initial BMI: 47.7 Last weight: Current weight: 111.584 kg Current weight in pounds: 246.00 Current BMI: 32.0 [place] body weight (based on NIH guidelines): 84.822 kg Excess body weight loss: 67.0% The patient is a 44 year-old M who presents for Bariatric Assessment. Patient presents today for sleeve gastric a fall. He's had a weight gain since last visit. He skin 24 pounds since last visit. He's had some mild GERD. Past Medical History Past Medical History: No Reported History Additional Past Medical History / Comment(s): chronic esophagitis dx 03/20/17 by EGD (Dr. Mayers), states he has herniated discs between L1 and S1 (one of which is near deterioration) History of Any Multi-Drug Resistant Organisms: None Reported Past Surgical History: Bariatric Surgery, Cholecystectomy, Ear Surgery Additional Past Surgical History / Comment(s): Ear tubes as a child, pain injections lower back ; vertical sleeve gastrectomy (11-21-17, Dr. Mayers) Past Anesthesia/Blood Transfusion Reactions: No Reported Reaction Additional Past Anesthesia/Blood Transfusion Reaction / Comm: Has never had general anesthesia, no problems noted with [place] anesthesia for EGD on 03-20-17 Past Psychological History: No Psychological Hx Reported Smoking Status: Never smoker Past Alcohol Use History: None Reported, Occasional Past Drug Use History: Marijuana Additional Drug Use History / Comment(s): occasional marijuana for back pain - Past Family History Mother Family Medical History: Diabetes Mellitus Additional Family Medical History / Comment(s): DDD, Anusha en Y sx, open heart sx, heart valve replacement, DM, Multiple back sx, lung disorder originated from [place] and led to mold spores in lungs, smoker Father Family Medical History: No Reported History Additional Family Medical History / Comment(s): patient states father does not g o to the doctor, has bad knees but that's about it. Surgical - Exam Vital Signs Temp Pulse Resp BP 98.6 F 84 18 111/60 06/14/20 13:12 06/14/20 13:12 06/14/20 13:12 06/14/20 13:12 - General well developed, well nourished, no distress - Eyes PERRL - ENT normal pinna - Neck no masses - Respiratory normal expansion - Cardiovascular Rhythm: regular - Abdomen Abdomen: soft, non tender Bariatric Assessment & Plan Plan: Morbid obesity. Patient's had some complaints aren't quadrant pain. He's had a previous laparoscopic cholecystectomy. This may be related to scar tissue. Patient's GERD is minimal will be observed. He'll follow-up in 4 weeks. Bariatric Checklist Checklist: Plan: Checklist: EGD: 1. Hiatal hernia: 2. H. Pylori: HgbA1c: Vitamin D: Smoking: Never smoker Primary care physician referral: Dr. Israel Mayen Psychiatry clearance: Cardiology clearance: Sleep study: Diet journal: VTE risk score: VTE risk level: Rehab needs at discharge:
== END | disposition home or self-care (01) ==
LOC: BARWHC3 12:56
PROVIDERS: ATTEND Surgery
DX: E66.01 Morbid (severe) obesity due to excess calories (principal); Z68.32 Body mass index [BMI] 32.0-32.9, adult; Z90.49 Acquired absence of other specified parts of digestive tract
CPT/HCPCS: 99211

== ENCOUNTER 2024-02-18 08:46 | Day surgery (SDC) | payer BC ==
[~2024-02-18 08:46] MED LIST changes: -DEXAMETHASONE SOD PHOSPHATE 10 MG/ML 1 ML VIAL IV ONE; +LIDOCAINE 1% (10MG/ML) FOR IV START INTRADERMA PRN; -ONDANSETRON 4 MG/2 ML VIAL IVP ONE; -SCOPOLAMINE 1.5MG/72HR PATCH TRANSDERM ONE; -fentaNYL (PF) 50 MCG/ML 2 ML AMP IV PRN
[2024-02-18 09:56] VITALS: TEMP 97.9
[2024-02-18] MEDS: IV FLUID CONTINUATION 1,000 ML IV ONE (10:04)
[2024-02-18] MEDS: LACTATED RINGERS 1,000 ML IV SCH (10:05)
[2024-02-18] MEDS ORDERED: PROPOFOL 10 MG/ML 20 ML VIAL IV ONE (10:21)
--- NOTE | 2024-02-18 10:47 | P.PCN ---
Date of Procedure: 02/18/24 Preoperative Diagnosis: Screening Postoperative Diagnosis: Normal colonoscopy Procedure(s) Performed: Colonoscopy Anesthesia: MAC Surgeon: Ti Whitlock Pathology: none sent Condition: stable Disposition: same day Indications for Procedure: 48-year-old male presents today for screening colonoscopy. He has never had 1 previously. Denies blood in his stool. Denies family history of colon cancer. Risks, benefits and alternatives provided. Operative Findings: Overall normal-appearing colon Description of Procedure: The patient was brought to the endoscopy suite. He was then placed in left lateral decubitus position and adequate sedation achieved using conscious sedation. A digital rectal exam was performed and mild internal hemorrhoids were palpated. An endoscope was then placed in the rectum and advanced to the cecum as identified by landmarks including the appendiceal orifice and the ileocecal valve. The prep was good. The colonoscope was then slowly withdrawn, examining for any mucosal abnormalities. The cecum, ascending, transverse, descending and sigmoid colon were visualized adequately. No polyps were noted. No significant finding of diverticulosis. No inflammatory lesions. Retroflexion was performed in the rectum and mild internal hemorrhoids were visible. Excess air was removed. The colonoscope withdrawn and the procedure terminated. The patient was then transferred to the recovery unit in stable condition. Repeat colonoscopy should be performed in 10 years.
[2024-02-18 11:03] VITALS: PULSE 57; RESP 17
[2024-02-18 11:24] VITALS: BP 102/70
== END 2024-02-18 11:30 | disposition home or self-care (01) ==
LOC: ORWHC2ENDO 08:46
PROVIDERS: ATTEND Surgery
DX: Z12.11 Encounter for screening for malignant neoplasm of colon (principal); K21.9 Gastro-esophageal reflux disease without esophagitis; K64.8 Other hemorrhoids; F12.90 Cannabis use, unspecified, uncomplicated; M19.90 Unspecified osteoarthritis, unspecified site; F41.0 Panic disorder [episodic paroxysmal anxiety]; E66.01 Morbid (severe) obesity due to excess calories; Z68.35 Body mass index [BMI] 35.0-35.9, adult; Z79.899 Other long term (current) drug therapy
CPT/HCPCS: 45378; J2704